=== PATIENT | female | born 1950 | race Caucasian/White ===

== ENCOUNTER → 2017-05-07 09:02 | Outpatient (CLI) | payer MEDICARE, OTHER, SELFPAY ==
[2017-05-07 10:30] LABS: Anion Gap 9 (5-15); BUN 15 mg/dL (7-18); BUN/Creat Ratio 25.3 RATIO (10-20); Calcium,Total 9.2 mg/dL (8.5-10.1); Chloride 103 mmol/L (98-107); Cholesterol 165 mg/dL (200); Creatinine, Serum 0.59 mg/dL (0.55-1.02); EST Glomerular Filtration Rate 108 mL/min (>60); Est Glom Filt Rate - Afr Amer 130 mL/min (>60); Glucose 92 mg/dL (70-110); High Density Lipoprotein 65 mg/dL; Potassium 3.8 mmol/L (3.5-5.1); Sodium Level 140 mmol/L (136-145); Triglycerides 110 mg/dL; Very Low Density Lipoprotein 22 mg/dL (5-40)
== END ==
PROVIDERS: Family Provider Family Medicine; PCP Family Medicine; Visit Provider Family Medicine
DX: I10 Essential (primary) hypertension (principal)
CPT/HCPCS: 36415; 80048; 80061

== ENCOUNTER 2017-05-20 07:58 | Day surgery (SDC) | payer MEDICARE, OTHER, SELFPAY ==
[2017-04-25 12:50] VITALS: BP 129/77; BMI 26.6
[2017-05-20 08:14] VITALS: BP 158/73; PULSE 70; RESP 16; TEMP 36.6; O2SAT 98; BMI 26.6
--- NOTE | 2017-05-20 09:51 | COLBX_PTH ---
PATIENT: QUINTON HERRING LOC: EN U#:[id number] AGE/SX: 66/F ROOM: RE05/20/[address]: Dr. Aroldo Elliott MD : 1950 BED: DIS: 05/20/2017 SPEC #: [id number] RECD: 05/20/17 11:12 STATUS: CHAPO SAYDA #: [id number] AMY: 05/20/17 09:[address]: Aroldo Elliott DEPT: SURGICAL PATHOLOGY RECD BY: Honorio Guillen ENTERED: 05/20/17 12:11 SP TYPE: COLON BX OTHR DR: Dr. Neal Regalado MD Tissues: Cecum, NOS Procedures: Surgery Specimen Level IV HEADER OPERATION: Colonoscopy with biopsy PRE-OP DIAGNOSIS: Small bowel obstruction / abnormal CT TISSUE SUBMITTED: Cecum biopsy MICROSCOPIC DIAGNOSIS Cecum, biopsy: No pathologic diagnosis. AM:isaac 05/23/17 MICROSCOPIC DESCRIPTION Slides are reviewed. GROSS DESCRIPTION Received in fixative is one container labeled with the patient's name and designated cecal biopsy. The specimen consists of one irregular fragment of light abdullahi soft tissue that measures 0.5 x 0.3 x 0.1 cm. The specimen is totally submitted in one cassette. / AM:isaac 05/20/17 TC:5 CPT: 06961
--- NOTE | 2017-05-20 10:04 | PCM.OPRPT ---
Problem List (1) Abnormal CT scan Status: Acute (2) Partial small bowel obstruction Status: Acute Report of Operation Date of Procedure: 05/20/17 Pre-Operative Diagnosis: History of partial small bowel obstruction. Abnormal CT scan possible inflammation distal small bowel Post-Operative Diagnosis: Scattered pancolonic diverticulosis Surgery/Procedure Performed:: Colonoscopy with cecal biopsy Description of Surgical Findings:: Amount and informed consent was obtained. 66-year-old female was taken to the endoscopy suite. She was placed in left lateral decubitus position. Throughout the procedure total 100 mg Demerol 3.5 mg of Versed were given as intravenous sedation. Digital rectal exam performed. Normal anal tone. No mass lesions. Flexible colonoscope inserted the rectum advanced with tortuous sigmoid colon. With transabdominal pressure the scope was advanced to the transverse colon and then was gradually advanced to the cecum. The cecum ileocecal valve area was nicely achieved. Multiple minutes were spent an attempt to cannulate the terminal ileum. Unfortunately I was not successful at that. A biopsy was obtained of the ileocecal valve area at the cecum. The cecum otherwise appeared to be normal. There did not appear to be any transmural mass-effect or inflammation. The scope was then carefully withdrawn from the ascending colon transverse colon descending colon and sigmoid colon. Scattered pancolonic diverticulosis was identified. Scope was retroflexed within the rectum. Anorectal verge inspected and little changes noted. Excess fluid and air was aspirated free. Procedure was completed with the patient tolerating it well. Impression Pancolonic diverticulosis. No evidence for colonic inflammation. Unsuccessful intubation of the ileocecal valve. Patient is clinically improved. Would recommend conservative follow-up based upon symptomatology Previous colonoscopy was greater than10 years ago. Colonoscopy recommended in 10 years Cc: Dr. Regalado Medications were given at 0938. Scope was inserted 0941. Cecum was reached at 0950. The procedure was completed at 0959. Aroldo Elliott M.D., F.A.C.S. Type of Anesthesia:: IV Sedation
[2017-05-20 10:05] VITALS: BP 108/43; BP 158/73; PULSE 77; RESP 16; TEMP 36.1; O2SAT 99
[2017-05-20 10:10] VITALS: BP 105/49; BP 158/73; PULSE 77; RESP 16; O2SAT 99
[2017-05-20 10:15] VITALS: BP 100/52; BP 158/73; PULSE 70; RESP 16; O2SAT 99
[2017-05-20 10:20] VITALS: BP 158/73; BP 99/45; PULSE 65; RESP 16; TEMP 36.1; O2SAT 98
[2017-05-20 11:00] VITALS: BP 158/73
== END 2017-05-20 11:01 | disposition home or self-care (01) ==
LOC: EN 07:58 → AC 07:59
PROVIDERS: Family Provider Family Medicine; PCP Family Medicine; Visit Provider Surgery
PROC: 0DJD8ZZ Inspection of Lower Intestinal Tract, Via Natural or Artificial Opening Endoscopic (ICD-10-PCS; CPT 45378; principal; 2017-05-20 09:10)
DX: K57.30 Diverticulosis of large intestine without perforation or abscess without bleeding (principal); R94.8 Abnormal results of function studies of other organs and systems
CPT/HCPCS: 45380; 88305; J7120

== ENCOUNTER → 2017-06-06 14:54 | Outpatient (CLI) | payer MEDICARE, OTHER, SELFPAY ==
--- NOTE | 2017-06-06 14:56 | HPBI_ITS ---
MAMMOGRAPHY - BILATERAL SCREENING REASON FOR EXAM: Female, 66 years old. Routine annual screening examination. PERTINENT HISTORY: Prior right excisional breast biopsy. TECHNIQUE: Digital bilateral breast elias (3D mammographic acquisition) in the CC and MLO projections. 2-D mediolateral oblique (MLO) and craniocaudad (CC) views of both breasts were obtained. CAD: Full Field Digital Mammography with Computer Added Detection was performed. COMPARISON: Comparison is made with prior study dated August 19, 2015. FINDINGS: Breast Composition: The breasts are heterogeneously dense, which may obscure small masses. There are no dominant masses or suspicious calcifications. No other significant abnormalities are identified. There has been no significant change since the prior study. HPBI/SCREENING MAMM (CAD), BILAT IMPRESSION: Stable bilateral screening mammogram. Yearly follow-up mammogram recommended. (A) ASSESSMENT CATEGORY: BIRADS Category 1: Negative. A letter regarding these results will be sent to the patient by the facility within 30 days. Approximately 10% of breast cancers are not detected by mammography. A normal mammogram should not delay biopsy of a clinically suspicious abnormality. [id number] Electronically Signed: Keyon Seth MD at 15:59 EST Tel [phone], Service support ,
== END ==
PROVIDERS: Family Provider Family Medicine; PCP Family Medicine; Visit Provider Family Medicine
DX: Z12.31 Encounter for screening mammogram for malignant neoplasm of breast (principal)
CPT/HCPCS: 77063; 77067

== ENCOUNTER → 2017-08-29 14:55 | Outpatient (CLI) | payer MEDICARE, OTHER, SELFPAY ==
[2017-09-02 03:08] LABS: Alternaria alternata <0.10 kU/L (Class 0); Aspergillus fumigatus <0.10 kU/L (Class 0); Bahia Grass <0.10 kU/L (Class 0); Bermuda Grass <0.10 kU/L (Class 0); Bluegrass, Kentucky <0.10 kU/L (Class 0); Cat Hair/Dander, Standard <0.10 kU/L (Class 0); Cedar, Mountain <0.10 kU/L (Class 0); Cladosporium herbarum <0.10 kU/L (Class 0); Cockroach, American <0.10 kU/L (Class 0); D farinae Mite <0.10 kU/L (Class 0); D pteronyssinus <0.10 kU/L (Class 0); Dog Epithelia <0.10 kU/L (Class 0); Elm, American White <0.10 kU/L (Class 0); Hazelnut Tree <0.10 kU/L (Class 0); Hickory, White <0.10 kU/L (Class 0); Johnson Grass <0.10 kU/L (Class 0); Maple/Box Elder <0.10 kU/L (Class 0); Mucor racemosus <0.10 kU/L (Class 0); Mugwort <0.10 kU/L (Class 0); Mulberry, White <0.10 kU/L (Class 0); Oak, White <0.10 kU/L (Class 0); Penicillium chrysogen <0.10 kU/L (Class 0); Pigweed, Rough <0.10 kU/L (Class 0); Plantain, English <0.10 kU/L (Class 0); Ragweed, Short/Common <0.10 kU/L (Class 0); Sheep Sorrel(Dock) <0.10 kU/L (Class 0); Stemphylium herbarum <0.10 kU/L (Class 0); Sweet Gum <0.10 kU/L (Class 0); Sycamore, American <0.10 kU/L (Class 0)
[2017-09-02 11:40] LABS: Nettle <0.10 kU/L (Class 0)
== END ==
PROVIDERS: Family Provider Family Medicine; PCP Family Medicine; Visit Provider Family Medicine
DX: Z91.09 Other allergy status, other than to drugs and biological substances (principal)
CPT/HCPCS: 36415; 86003

== ENCOUNTER → 2018-01-10 05:59 | Outpatient (CLI) | payer MEDICARE, OTHER, SELFPAY ==
[2018-01-10 07:26] LABS: Anion Gap 7 (5-15); BUN 16 mg/dL (7-18); BUN/Creat Ratio 24.8 RATIO (10-20); Calcium,Total 9.1 mg/dL (8.5-10.1); Chloride 105 mmol/L (98-107); Cholesterol 159 mg/dL (200); Creatinine, Serum 0.64 mg/dL (0.55-1.02); EST Glomerular Filtration Rate 97 mL/min (>60); Est Glom Filt Rate - Afr Amer 118 mL/min (>60); Glucose 92 mg/dL (74-106); High Density Lipoprotein 50 mg/dL; Potassium 3.8 mmol/L (3.5-5.1); Sodium Level 143 mmol/L (136-145); Thyroid Stim Hormone (TSH) 1.36 uIU/mL (0.358-3.74); Triglycerides 137 mg/dL; Very Low Density Lipoprotein 27 mg/dL (5-40)
== END ==
PROVIDERS: Family Provider Family Medicine; PCP Family Medicine; Referring Provider Family Medicine; Visit Provider Family Medicine
DX: I10 Essential (primary) hypertension (principal); R53.83 Other fatigue
CPT/HCPCS: 36415; 80048; 80061; 84443

== ENCOUNTER → 2018-07-10 06:23 | Outpatient (CLI) | payer MEDICARE, OTHER, SELFPAY ==
--- NOTE | 2018-07-10 10:14 | STRESSREP ---
Stress Test Report Exercise myocardial perfusion stress test. 67-year-old lady with a history of chest pain. Medications: Propranolol. Stress protocol: Resting EKG demonstrates normal sinus rhythm with a rate of 65 bpm normal intervals are noted resting blood pressure 128/74 mmHg. The patient exercised according to regular Killian protocol for total duration of 6 minutes the patient completed stage II of the Killian protocol the maximum heart rate attained was 142 bpm which was 92% of maximum predicted heart rate the maximum workload was 7 metabolic equivalents. At rest there were no ST or T wave changes noted suggest ischemia peak exercise upsloping ST changes only were noted with no meet the criteria for ischemia. Resting blood pressure 120/74 with a peak blood pressure 188/72 rate pressure product was 26,500. Patient felt occasional chest discomfort. Myocardial perfusion protocol. 11.6 mCi of technetium 99m sestamibi was injected at rest. The patient exercised according to regular Killian protocol for 6 minutes at peak exercise 33.1 mCi of technetium 99m sestamibi was injected stress images were obtained stress and rest images were reconstructed and compared in the short axis vertical long horizontal long axis. Gated images were also obtained per Perfusion SPECT analysis: Review of the stress images demonstrate normal uptake of tracer noted in all areas of the myocardium. The resting images similarly demonstrate normal uptake of tracer noted in all areas of myocardium. No reversibility is noted suggest ischemia. Gated SPECT analysis: The gated ejection fraction is noted to be 82%. Conclusion: Normal exercise myocardial perfusion stress test at a moderate workload. Preserved ejection fraction.
== END ==
PROVIDERS: Family Provider Family Medicine; PCP Family Medicine; Referring Provider Family Medicine; Visit Provider Family Medicine
DX: R07.9 Chest pain, unspecified (principal)
CPT/HCPCS: 78452; 93017; A9500; A4216

== ENCOUNTER → 2018-07-17 | Outpatient (CLI) | payer MEDICARE, OTHER, SELFPAY ==
--- NOTE | 2018-07-17 14:53 | BI_ITS ---
MAMMOGRAPHY - BILATERAL SCREENING REASON FOR EXAM: Female, 67 years old. Routine annual screening examination. PERTINENT HISTORY: Non-contributory. TECHNIQUE: Digital bilateral breast elias (3D mammographic acquisition) in the CC and MLO projections. 2-D mediolateral oblique (MLO) and craniocaudad (CC) views of both breasts were obtained. CAD: Full Field Digital Mammography with Computer Added Detection was performed. COMPARISON: Comparison is made with prior examination dated June 06, 2017 and August 19, 2015. FINDINGS: Breast Composition: The breasts are heterogeneously dense, which may obscure small masses. There are no dominant masses or suspicious calcifications. No other significant abnormalities are identified. There has been no significant change since the prior study. BI/SCREENING MAMM (CAD), BILAT IMPRESSION: Stable bilateral screening mammogram. Yearly follow-up mammogram recommended. (A) ASSESSMENT CATEGORY: BIRADS Category 1: Negative. A letter regarding these results will be sent to the patient by the facility within 30 days. Approximately 10% of breast cancers are not detected by mammography. A normal mammogram should not delay biopsy of a clinically suspicious abnormality. [id number] Electronically Signed: Keyon Seth, at 16:01 EDT , Service support ,
== END | disposition home or self-care (01) ==
LOC: OPBI 14:51
PROVIDERS: Family Provider Family Medicine; PCP Family Medicine; Referring Provider Family Medicine; Visit Provider Family Medicine
DX: Z12.31 Encounter for screening mammogram for malignant neoplasm of breast (principal)
CPT/HCPCS: 77063; 77067

== ENCOUNTER → 2018-08-16 14:14 | Outpatient (CLI) | payer MEDICARE, OTHER, SELFPAY ==
--- NOTE | 2018-08-16 14:23 | RAD_ITS ---
STUDY: X-RAY - RIGHT KNEE REASON FOR EXAM: Female, 68 years old. Anterior right knee pain for 2 weeks TECHNIQUE: 4 view(s) of the knee. COMPARISON: None. FINDINGS: Normal visualized distal femur. Normal visualized proximal tibia and fibula. Normal proximal tibiofibular articulation. Normal medial femorotibial compartment. Normal lateral femorotibial compartment. Normal patellofemoral articulation. Serpiginous structures of the superficial leg soft tissues likely represent varicose veins. RAD/Knee 4 or More Views IMPRESSION: No significant degenerative changes or erosive process. Suspect varicose veins. Electronically Signed: Aguila Roper MD at 13:32 EDT , Service support ,
== END ==
PROVIDERS: Family Provider Family Medicine; PCP Family Medicine; Referring Provider Family Medicine; Visit Provider Family Medicine
DX: M25.569 Pain in unspecified knee (principal)
CPT/HCPCS: 73564

== ENCOUNTER 2018-09-26 14:30 | Outpatient (RCR) | payer MEDICARE, OTHER, SELFPAY ==
--- NOTE | 2018-08-23 16:25 | HP.PTEVAL_ITS ---
Patient's Visit Information QUINTON HERRING is a 68 year old F referred to Physical Therapy by Neal Regalado MD with a diagnosis of RIGHT KNEE PAIN. Date of Evaluation: 08/23/18 Physical Therapist: Shiv Sheth PT, Cert MDT, OCS - Visit Plan Frequency: 2x /Week Duration: 4 Weeks Plan: INTERVENTIONS INCLUDE ROM,PRE'S QUADS/HAMS/HIP, - Subjective Findings: This 68 y/o female presents to physical therapy with right knee pain. Patient pain incidous onset of right knee pain. Otherwise ,recalls being on hands/knees working on floor. Patient pain medial knee described as ache/sharp pain. Aggraveting factors squatting,kneeling ,stairs,walking,sitting for extended period of time to elevate from chair. Denies parathesia/tingling.Patient had x-rays -,provided with naproxyn.Pain can affects sleeping especially turning in bed. Patient pain affects ADL's and housework tasks. Pateint right pain affects QOL. SOCAIL: . VOCATION: part-time - Pain Right Knee Pain Intensity (Out of 10): 2 Pain Intensity Range: 10 - Objective POSTURE:mild knee valgus. PALAPTION:medial joint line tenderness. EDEMA: mild effusion. GAIT: antalgic gait with decrease stance right. STAIRS: one step at time. AROM: 0-115 supine degrees knee flexion. MMT: quads/hams 4-/5,hip flexion/abd 4-/5,ankle 4/5. FLEXABLITY: hams min tight - Special Tests R Knee Theo - Meniscus: Positive R Knee Apley - Meniscus: Negative R Knee Krista - ACL: Negative R Knee Anterior Drawer - ACL: Negative R Knee Posterior Drawer - PCL: Negative R Knee Posterior Sag - PCL: Negative R Knee Valgus - MCL: Negative R Knee Varus - LCL: Negative R Knee Patellar Grind - PFS: Negative - Goals Goal 1:: Independant with HEP . Goal Time Frame: 4-6 Weeks Goal 2:: Normalize gait pattern Goal Time Frame: 4-6 Weeks Goal 3:: Decrease pain by 60% or greater to improve function with gait. Goal Time Frame: 4-6 Weeks Goal 4:: Patient increase AROM knee flexion symmtrical right to left to improve gait. Goal Time Frame: 4-6 Weeks Goal 5:: Patient increase strength quads/hams 4/5 to improve stairs Goal Time Frame: 4-6 Weeks Goal 6:: Patient to improve LFES score by 10 points or greater to improve QOL. Goal Time Frame: 4-6 Weeks - Rehabilitation Potential Physical Therapy Diagnosis: This patient has right knee pain with possible meniscus decrease ROM,strength,antalgic gait impairs ADL'S thus benifit from skilled PT. Rehabilitation Potential: Good - Anticipated Interventions Patient/Client Instruction: Educate patient on: Condition, Plan of Care For the Purpose of:: To decrease pain, To increase ROM, To improve muscle performance and motor function, To improve ability to perform ADL's, To improve ability of physical actions for home/community/work/leisure, To improve gait and locomotor functions, To improve health of tissue, To decrease soft tissue restriction, To increase flexibility/ROM, To reduce risk of recurrence, To improve ability to perform tasks related to life management Therapeutic Exercise to Include: Strength training, Flexibilty training, Active ROM Comment: KNEE/HIP For the Purpose of:: To decrease pain, To increase ROM, To improve muscle performance and motor function, To improve ability to perform ADL's, To increase tolerance to activity/condition/position, To improve performance and independence with ADL's, To improve ability of physical actions for home /community/work/leisure, To decrease soft tissue restriction, To increase flexibility/ROM, To improve ability to perform tasks related to life management TENS: Yes IF ES: Yes Cryotherapy (ice pack, ice massage): Yes Thermo therapy (hot pack): Yes Ultrasound (thermal/non thermal): Yes For the Purpose of:: To decrease pain, To increase ROM, To improve health of tissue, To decrease soft tissue restriction, To increase flexibility/ROM Thank you for the opportunity to evaluate your patient. For Medicare and Medicare HMO plans, please review the plan of care and approve it. It will need to be FAXED BACK to us at [phone] for Medicare purposes. For Medicare only, by signing this I certify the plan of care. Please let me know if there are questions or concerns regarding this plan of care. Physician Signature: Date:
--- NOTE | 2018-09-26 14:52 | HP.PTDCSUM ---
HP - PT D/C Summary It has been my pleasure to treat QUINTON HERRING under orders from Neal Regalado MD, for the diagnosis of RIGHT KNEE PAIN for a total of 9 visit(s). Discharge Date: 09/26/18 Please see the following information for a summary of their discharge status. - Subjective Subjective: Doing well ..no problems - Pain Right Knee Pain Intensity (Out of 10): 0 - Overall Improvement % Improvement: 85 - Objective Objective/Function: GAIT:normal julia. NEURO: intact. AROM: 0-135 degress flexion. MMT: quads/hams/hip 4/5 ,ankle 4/5 - Goals Goal 1:: Independant with HEP . Goal Progress: Goal Met Goal 2:: Normalize gait pattern Goal Progress: Goal Met Goal 3:: Decrease pain by 60% or greater to improve function with gait. Goal Progress: Goal Met Goal 4:: Patient increase AROM knee flexion symmtrical right to left to improve gait. Goal Progress: Goal Met Goal 5:: Patient increase strength quads/hams 4/5 to improve stairs Goal Progress: Goal Met Goal 6:: Patient to improve LFES score by 10 points or greater to improve QOL. Goal Progress: Goal Met - Plan Plan: D/C TO HEP - D/C Information Discharge Comments: D/C TO HEP If there are questions or concerns regarding this patient's physical therapy, please feel free to call me at [phone]. Thank you for the referral of this patient. Sincerely, Shiv Sheth, PT, Cert MDT, OCS
== END 2018-09-26 19:00 | disposition home or self-care (01) ==
LOC: PT 14:30
PROVIDERS: Family Provider Family Medicine; PCP Family Medicine; Referring Provider Family Medicine; Visit Provider Family Medicine
DX: M25.569 Pain in unspecified knee (principal)
CPT/HCPCS: 97014; 97110; 97162; 97530; G0283

== ENCOUNTER → 2019-04-17 16:54 | Outpatient (CLI) | payer MEDICARE, OTHER, SELFPAY ==
--- NOTE | 2019-04-17 17:30 | MRI_ITS ---
STUDY: MRI RIGHT KNEE REASON FOR EXAM: Female, 68 years old. Right knee pain. Arthritis. TECHNIQUE: Standardized fat and water weighted pulse sequences were obtained in all 3 orthogonal planes. COMPARISON: X-ray dated August 16, 2018. FINDINGS: Grade 3 cartilage loss at the patellofemoral articulation with small 5 cm osteochondral lesions. Medial compartment grade 2/3 cartilage loss. Lateral compartment articular cartilage preserved. No acute fracture. No dislocation. No bone destruction. Lateral meniscus intact. Medial meniscus posterior horn oblique tear (sagittal image 6 series 5 and sagittal image 9 series 4) with posterior horn degeneration. Small volume joint effusion. No popliteal cyst. Mild swelling. Varicose veins. Normal medial collateral ligamentous complex (MCL). Normal distal semimembranosus, gracilis and semitendinosus tendons. Normal proximal tibiofibular articulation. Normal lateral collateral (fibular) ligament. Normal popliteus tendon. Normal biceps femoris tendon. Normal anterior cruciate ligament (ACL). Normal posterior cruciate ligament (PCL). Normal medial and lateral patellar retinaculum. Tiny quadriceps tendon enthesophyte. Normal patellar tendon. Normal Hoffa''s fat pad. MRI/Lower Ext Joint Only (Routine) IMPRESSION: Medial meniscus posterior horn degeneration with oblique tear Right knee moderate osteoarthritis Small volume joint effusion and mild swelling Electronically Signed: Billy Mccracken DO at 8:28 EST Tel , Service support ,
== END ==
PROVIDERS: Family Provider Family Medicine; PCP Family Medicine; Referring Provider Family Medicine; Visit Provider Family Medicine
DX: M25.561 Pain in right knee (principal)
CPT/HCPCS: 73721

== ENCOUNTER 2019-05-01 07:55 | Day surgery (SDC) | payer MEDICARE, OTHER, SELFPAY ==
[2019-04-25 09:49] VITALS: BMI 28.5
[2019-05-01] VITALS (7 sets, daily range): BP systolic 126–140; BP diastolic 57–72; PULSE 57–71; RESP 14–16; TEMP 36.3–36.6; O2SAT 92–99; BMI 28.8
[2019-05-01] MEDS: Lactated Ringers 1,000 ML 100 ML IV ×2 (08:51→10:34)
[2019-05-01] MEDS: Cefazolin 2 GM in 0.9% Normal Saline 100 ML IV (09:25)
[2019-05-01] MEDS: Bupiv/Epi 0.5% Mpf 30 ML Vial (09:51)
[2019-05-01] MEDS: Epinephrine (1 mg/ml) 1 MG/ML VIAL (09:51)
[2019-05-01] MEDS: MethylPREDNISolone Acetate 80 MG/ML Vial (10:05)
[2019-05-01] MEDS: Bupivacaine Mpf 0.5% 30 ML VIAL (10:05)
--- NOTE | 2019-05-01 10:13 | PCM.DC.ORTHO ---
Discharge Diet: No Restrictions Additional Instructions: Ice and elevate next 72 hours .keep dressing on clean and dry for 48 hours then may remove begin showering daily but do not submerge in tub or pool. After shower may apply Band-Aids . Encourage knee range of motion weightbearing as tolerated, use crutches until confident in knee then may discontinue. No strenuous activity. When not ambulating keep iced and elevated next 72 hours. Allergies/Adverse Reactions: Allergies menthol [From [facility]] Adverse Reaction (Verified 05/01/19 08:33) Rash Medications to take at Discharge Cholecalciferol (Vitamin D3) [Vitamin D3] 5,000 unit PO DAILY 04/10/17 Propranolol HCl 40 mg PO DAILY 04/10/17 Acetaminophen [Tylenol Extra Strength] 500 - 1,000 mg PO Q6H PRN PRN 04/30/19 Albuterol IH (ProAir) [Proair Hfa (SP)Vent Pts] 1 - 2 puff INHALATION Q6H PRN PRN 04/30/19 Hydrocodone Bitart/Apap 5-325 [[place] 5MG-325MG] 1 - 2 tablet PO Q4H PRN PRN 5 Days #50 tablet 05/01/19 The following prescriptions were given: Hydrocodone Bitart/Apap 5-325 [[place] 5MG-325MG] 1 - 2 tablet PO Q4H PRN PRN 5 Days #50 tablet PRN Reason: Pain Transmission Status: Received by [id number] Primary Care Physician: Neal Regalado MD [Primary Care Provider] - Test Results: Test results from this visit will be discussed in further detail at your follow-up appointment, if applicable. Please Follow Up With: Kalpesh Mckeon DO - 2 weeks
--- NOTE | 2019-05-01 10:15 | OP.PCM_ITS ---
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 Risk benefits and alternatives of the procedure were reviewed including risk of bleeding infection nerve artery tissue damage need for further surgery continued pain and expected postoperative course. Procedure: The patient was met in the preoperative holding area. The operative extremity was identified by both patient and physician and family and marked. Patient was brought back to the operating room on a wheeled cart and transferred to the operating table in the supine position. Anesthesia was started. A well- padded tourniquet was placed on the operative extremity. A lower extremity leg alvarenga was secured to the operative extremity. The contralateral extremity was well-padded and the end of the bed was flexed to 90 degrees. The patient was prepped and draped in the usual sterile fashion. A timeout was called to ensure the proper patient, procedure, and extremity were being contemplated. 0.5% Marcaine with epinephrine was injected into the planned incisional areas under the skin only. An Esmarch was used to exsanguinate the extremity and the tourniquet was inflated. An 11 blade scalpel was used to make a stab incision in the anterior lateral portal. The arthroscope was inserted into the intercondylar notch and inflow and outflow tubes were attached. Arthroscopic visualization began. The medial compartment was entered. An 18-gauge spinal needle was used to establish the placement for anterior medial portal. An 11 blade scalpel was used to make a stab incision. Blunt probe was inserted followed by a meniscal probe. Complex tearing of posterior horn medial meniscus with radial and horizontal components grade III chondromalacia throughout the medial femoral condyle gentle chondroplasty and partial medial meniscectomy was performed in this compartment the ACL was found to be intact. The lateral compartment was entered free of meniscal or cartilage pathology The ar thromnope was switched to the medial portal to complete the procedure. The medial and lateral gutters were inspected and were free of loose bodies. The patellofemoral joint was inspected grade 3 cartilage wear with areas of grade 4 of the trochlea and grade 3 medial and lateral patellar facet enteroplasty performed. There was good patellar tracking. The knee was thoroughly irrigated and drained. An intra-articular injection with 5 cc 0.5% Marcaine plain 4 mg of morphine and 40 mg of Depo-Medrol was injected intra-articularly. The arthroscope was removed the portals were closed with 3-0 nylon arthroscopic stitches. Followed by Xeroform 4 x 4's ABDs web roll and an Juan wrap. The tourniquet was let down and the drapes were removed. All counts were correct. The patient was brought back to the PACU in stable condition.
[2019-05-01] MEDS: HYDROcodone Bitartrate/Apap 5/325 Tablet PO (11:35)
--- NOTE | 2019-05-18 10:09 | PCM.HP.BLA ---
History and Physical Date of Admission: 05/18/19 Intake Vital Signs 04/25/19 Height 5 ft 6 in 04/25/19 Weight: 177 lb 04/25/19 BMI 26.6 Intake Visit Reasons: right knee Is patient in pain?: Yes Pain scale (1-10): 8 Allergies menthol [From [facility]] Adverse Reaction (Verified 04/25/19 09:48) Rash Medications Aspirin [Aspirin, Baby] 81 mg PO DAILY 04/10/17 [History Confirmed 04/25/17] Cholecalciferol (Vitamin D3) [Vitamin D3] 5,000 unit PO DAILY 04/10/17 [History Confirmed 04/25/19] Propranolol HCl 40 mg PO DAILY 04/10/17 [History Confirmed 04/25/19] Vitamin E 400 unit PO DAILY 04/10/17 [History Confirmed 04/25/17] tramadol 50 mg tablet 50 mg PO DAILY 04/25/19 [History Confirmed 04/25/19] [facility] Surgical History (Updated 05/20/17 @ 10:08 by Aroldo Elliott MD) H/O section (Acute) H/O melanoma excision (Acute) S/P breast lumpectomy (Acute) Social History (Updated 04/25/19 @ 10:28 by Kalpesh Mckeon DO) Smoking Status: Never smoker HPI right knee: Details: Parts of this documentation were recorded by a scribe, this documentation accurately reflects the service provided and the decisions made by me, Kalpesh Mckeon DO 04/25/19 0756. QUINTON HERRING is a 68 year old F here today referred by Dr Pennington for right knee pain. She states that she had had right knee pain since July but got worse just after . Patient denies any known injury but states that she was taking down decorations and got worsening pain. She complains of pain over her medial knee. Patient denies any popping or clicking, however she feels like it could if she moved a certain way so she prevents that from happening. She complains of knee swelling. Patient denies any knee instability. She ambulates slowly and carefully on stairs as she has increased pain with knee flexion. Patient completed physical therapy which was helpful at that time but then her knee pain worsened. She has decreased pain with sitting in her recliner. Patient notes that she has pain at night while sleeping. Patient denies any injections. She denies any knee brace. Patient had xrays and MRI which are here for review. She takes tramadol and naproxen which is not helpful. ROS Musc Reports joint pain, Reports joint swelling, Denies limited joint movement, Denies muscle weakness Skin/Breast Reports system reviewed and no additional complaints, except as docu Neuro Yes system reviewed and no additional complaints, except as docu Ortho Exam Right Knee Skin/Wound: Yes CDI, No erythema, No ecchymosis, Yes swelling Homans Sign: No 1+: Effusion (faint) Knee ROM: Yes ROM-Extension -20 to 0, Yes ROM-Flexion 0-140 (115) Examination: Yes Med jt line tenderness, No Lat jt line tenderness, Yes Theo's Test (with click), Yes Zazueta's (with crepitus and pain), Yes TTP Pes Anserine Stability: NML: Anterior Drawer, NML: Posterior Drawer, NML: Valgus 30, NML: Varus 30 Patella Translation: 1 Apprehension with Lateral Translation: No Patella Grind: No Left Knee Patella Translation: 1 Supplemental Info 04/17/2019 MRI right knee: Medial meniscus posterior horn degeneration with oblique tear,Right knee moderate osteoarthritis, Small volume joint effusion and mild swelling Assessment & Plan Problems 1. Peripheral tear of medial meniscus of right knee as current injury, initial encounter S83.221A 2. Primary osteoarthritis of right knee M17.11 Plan Spoke with the patient about the anatomy of the knee and etiology of her pain. Explained that she would be a candidate for a knee arthroscopy to help with medial meniscus tear. The arthroscopy will not be helpful with her cartilage wear particularly patellofemoral and medial compartment. She agreed to surgery. She should stop aleve and ibuprofen 7 days prior to surgery. Reviewed the pre-operative plans with the patient. Risks and benefits of the procedure were fully explained, including but not limited to infection, neurovascular injury, continued pain, arthritis, stiffness, need for further surgery, re-injury, DVT, PE, general risks of anesthesia, and loss of limb or life. The patient understands all the risks and does wish to proceed with written consent. Follow up in 2 weeks after surgery(06/01/2019) or sooner if pain, swelling, numbness or associated symptoms, or concerns develop. All questions answered. Patient in agreement of plan. Will forward a copy to Dr. Regalado. Thank for this consultation. Coding Level of Care Code 22614 Diagnoses Peripheral tear of medial meniscus of right knee as current injury, initial encounter S83.221A ??Tear current or old: current ??Encounter type: initial encounter ??Meniscus tear of knee type: peripheral Primary osteoarthritis of right knee M17.11 ??Osteoarthritis type: primary I have re-examined the patient. There are no clinical changes since date of exam
== END 2019-05-01 12:08 | disposition home or self-care (01) ==
LOC: SDC 07:57 → AC 07:58
PROVIDERS: Family Provider Family Medicine; PCP Family Medicine; Referring Provider Orthopaedic Surgery; Visit Provider Orthopaedic Surgery
PROC: (CPT 29870; principal; 2019-05-01 09:30)
DX: S83.231A Complex tear of medial meniscus, current injury, right knee, initial encounter (principal); X58.XXXA Exposure to other specified factors, initial encounter; Y93.9 Activity, unspecified; Y92.9 Unspecified place or not applicable; Y99.9 Unspecified external cause status; M17.11 Unilateral primary osteoarthritis, right knee; Z79.82 Long term (current) use of aspirin
CPT/HCPCS: 01400; 29882; J7120; J2405

== ENCOUNTER → 2019-05-21 08:56 | Outpatient (CLI) | payer MEDICARE, OTHER, SELFPAY ==
[2019-05-21 08:56] VITALS: BMI 28.8
--- NOTE | 2019-05-21 08:57 | RAD_ITS ---
STUDY: X-RAY - RIGHT HAND, ATTENTION first digit REASON FOR EXAM: Female, 68 years old. RIGHT THUMB HAS BEEN LOCKING UP CAUSING PAIN TECHNIQUE: 3 views thumb were obtained. COMPARISON: None. FINDINGS: Normal metacarpal head. Normal metacarpophalangeal joint. Normal proximal phalanx. Normal distal phalanx. There is moderate degenerative arthrosis of the interphalangeal joint. RAD/Finger(s) Min 2 Views IMPRESSION: Moderate osteoarthrosis of the interphalangeal joint. No destructive or erosive process. Electronically Signed: Aguila Roper MD (Brooks) at 13:25 EST , Service support ,
== END ==
PROVIDERS: PCP Family Medicine; Visit Provider Orthopaedic Surgery
DX: M79.644 Pain in right finger(s) (principal)
CPT/HCPCS: 73140

== ENCOUNTER → 2019-08-06 10:09 | Outpatient (CLI) | payer MEDICARE, OTHER, SELFPAY ==
[2019-05-21 08:56] VITALS: BMI 28.8
--- NOTE | 2019-08-06 10:13 | RAD_ITS ---
STUDY: X-RAY - UNILATERAL RIBS ( LEFT ) WITH CHEST REASON FOR EXAM: Female, 69 years old. PT FELL ONTO A ROCKING SARTHAK, PAIN AND BRUISE UPPER AXILLARY AREA, UNDER ARMPIT TECHNIQUE - RIBS: 4 view(s) of the ribs. TECHNIQUE - CHEST: COMPARISON: None. FINDINGS - RIBS: Normal visualized ribs without a demonstrated fracture. FINDINGS - CHEST: The lungs are clear and expanded. Scattered calcified granulomas. There is no demonstrated pleural abnormality. Normal size heart. Normal mediastinum and jenni. Normal visualized pulmonary arteries. Normal visualized aortic arch and descending thoracic aorta. There is a dextroscoliosis of the thoracic spine. Normal visualized ribs, clavicles, and shoulders. There is no demonstrated abnormality of the visualized soft tissue structures of the upper abdomen. RAD/Ribs Uni Min 3V w/PA Chest IMPRESSION: RIBS: Normal x-ray examination of the ribs. CHEST: Normal x-ray examination of the chest. Electronically Signed: Keyon Seth, at 10:42 EDT , Service support ,
== END ==
LOC: MTLAB 10:12 → MTRAD 10:12
PROVIDERS: PCP Family Medicine; Referring Provider Family Medicine; Visit Provider Family Medicine
DX: R07.81 Pleurodynia (principal)
CPT/HCPCS: 71101

== ENCOUNTER → 2019-09-12 07:56 | Outpatient (CLI) | payer MEDICARE, OTHER, SELFPAY ==
[2019-05-21 08:56] VITALS: BMI 28.8
--- NOTE | 2019-09-12 07:59 | BI_ITS ---
MAMMOGRAPHY - BILATERAL SCREENING REASON FOR EXAM: Female, 69 years old. Routine annual screening examination. PERTINENT HISTORY: Non-contributory. TECHNIQUE: Digital bilateral breast arash (3D mammographic acquisition) in the CC and MLO projections. 2-D mediolateral oblique (MLO) and craniocaudad (CC) views of both breasts were obtained. CAD: Full Field Digital Mammography with Computer Added Detection was performed. COMPARISON: Comparison is made with prior examination dated July 17, 2018 and June 06, 2017. FINDINGS: Breast Composition: The breasts are heterogeneously dense, which may obscure small masses. There are no dominant masses or suspicious calcifications. No other significant abnormalities are identified. There has been no significant change since the prior study. BI/SCREEN MAMM (CAD) W/ARASH BILAT IMPRESSION: Stable bilateral screening mammogram. Yearly follow-up mammogram recommended. (A) ASSESSMENT CATEGORY: BIRADS Category 1: Negative. A letter regarding these results will be sent to the patient by the facility within 30 days. Approximately 10% of breast cancers are not detected by mammography. A normal mammogram should not delay biopsy of a clinically suspicious abnormality. [id number] Electronically Signed: Keyon Seth, at 9:40 EDT , Service support ,
[2019-09-12 08:56] LABS: Cholesterol 166 mg/dL (200); High Density Lipoprotein 59 mg/dL; Triglycerides 128 mg/dL; Very Low Density Lipoprotein 26 mg/dL (5-40)
== END ==
PROVIDERS: PCP Family Medicine; Referring Provider Nurse Practitioner Family; Visit Provider Nurse Practitioner Family
DX: Z12.31 Encounter for screening mammogram for malignant neoplasm of breast (principal); E78.5 Hyperlipidemia, unspecified
CPT/HCPCS: 36415; 77063; 77067; 80061

== ENCOUNTER → 2020-10-24 08:14 | Outpatient (CLI) | payer MEDICARE, OTHER, SELFPAY ==
[2019-12-24 08:20] VITALS: BMI 28.8
--- NOTE | 2020-10-24 08:29 | BI_ITS ---
MAMMOGRAPHY - BILATERAL SCREENING REASON FOR EXAM: Female, 70 years old. Routine annual screening examination. PERTINENT HISTORY: Non-contributory. TECHNIQUE: Digital bilateral breast arash (3D mammographic acquisition) in the CC and MLO projections. 2-D mediolateral oblique (MLO) and craniocaudad (CC) views of both breasts were obtained. CAD: Full Field Digital Mammography with Computer Added Detection was performed. COMPARISON: Comparison is made with prior study dated 09/12/2019 and 07/17/2018. FINDINGS: Breast Composition: The breasts are heterogeneously dense, which may obscure small masses. There are no dominant masses or suspicious calcifications. No other significant abnormalities are identified. There has been no significant change since the prior study. BI/SCRN MAMM (CAD)W/ARASH BILAT IMPRESSION: Stable bilateral screening mammogram. Yearly follow-up mammogram recommended. (A) ASSESSMENT CATEGORY: BIRADS Category 1: Negative. A letter regarding these results will be sent to the patient by the facility within 30 days. Approximately 10% of breast cancers are not detected by mammography. A normal mammogram should not delay biopsy of a clinically suspicious abnormality. [id number] Electronically Signed: Keyon Seth MD at 10:07 EDT , Service support ,
== END ==
PROVIDERS: PCP Family Medicine; Referring Provider Family Medicine; Visit Provider Family Medicine
DX: Z12.31 Encounter for screening mammogram for malignant neoplasm of breast (principal)
CPT/HCPCS: 77063; 77067

== ENCOUNTER → 2020-12-01 08:49 | Outpatient (CLI) | payer MEDICARE, OTHER, SELFPAY ==
[2020-12-01 10:45] LABS: Anion Gap 2 (5-15); BUN 20 mg/dL (7-18); BUN/Creat Ratio 34.2 RATIO (10-20); Calcium,Total 9.3 mg/dL (8.5-10.1); Chloride 107 mmol/L (98-107); Creatinine, Serum 0.58 mg/dL (0.55-1.02); EST Glomerular Filtration Rate 108 mL/min (>60); Est Glom Filt Rate - Afr Amer 131 mL/min (>60); Glucose 87 mg/dL (74-106); Potassium 4.1 mmol/L (3.5-5.1); Sodium Level 140 mmol/L (136-145)
== END ==
PROVIDERS: PCP Family Medicine; Referring Provider Nurse Practitioner Family; Visit Provider Nurse Practitioner Family
DX: Z13.220 Encounter for screening for lipoid disorders (principal)
CPT/HCPCS: 36415; 80048

== ENCOUNTER → 2021-10-16 | Outpatient (CLI) | payer MEDICARE, OTHER, SELFPAY ==
--- NOTE | 2021-10-16 09:13 | RAD_ITS ---
STUDY: X-RAY - RIGHT HAND REASON FOR EXAM: Female, 71 years old. Pain at the level of the third metacarpal phalangeal joint. TECHNIQUE: 3 view(s) of the hand. COMPARISON: None. FINDINGS: Normal radiocarpal articulation. Normal distal radioulnar joint. Normal visualized carpal bones. Normal carpal articulations Normal carpometacarpal articulation of the thumb. Normal second through fifth carpometacarpal joints. Normal metacarpi. Normal metacarpophalangeal joint of the thumb. Normal interphalangeal joint of the thumb. Normal proximal and distal phalanges of the thumb. Normal metacarpophalangeal joints of the second through fifth fingers. Normal proximal and distal interphalangeal joints of the second through fifth fingers. Normal phalanges of the second through fifth fingers. The soft tissue structures are unremarkable. RAD/Hand Min 3 Views IMPRESSION: Normal x-ray examination of the hand. Electronically Signed: Keyon Seth MD at 9:29 EDT ,
[2021-10-16 10:25] LABS: BUN 20 mg/dL (7-18); Creatinine, Serum 0.64 mg/dL (0.55-1.02); Glucose 87 mg/dL (74-106)
[2021-10-16 10:26] LABS: Anion Gap 4 (5-15); BUN/Creat Ratio 31.1 RATIO (10-20); Calcium,Total 9.5 mg/dL (8.5-10.1); Chloride 106 mmol/L (98-107); Cholesterol 179 mg/dL (200); EST Glomerular Filtration Rate 97 mL/min (>60); Est Glom Filt Rate - Afr Amer 117 mL/min (>60); High Density Lipoprotein 54 mg/dL; Potassium 4.1 mmol/L (3.5-5.1); Sodium Level 140 mmol/L (136-145); Triglycerides 144 mg/dL; Very Low Density Lipoprotein 29 mg/dL (5-40)
== END | disposition home or self-care (01) ==
LOC: MTLAB 09:02
PROVIDERS: PCP Family Medicine; Referring Provider Family Medicine; Visit Provider Family Medicine
DX: M79.643 Pain in unspecified hand (principal); I10 Essential (primary) hypertension
CPT/HCPCS: 36415; 73130; 80048; 80061

== ENCOUNTER → 2021-10-22 | Outpatient (CLI) | payer MEDICARE, OTHER, SELFPAY ==
--- NOTE | 2021-10-22 12:58 | CDU_ITS ---
Reason For Study: Amaurosis fugax Rt. Velocities/BP Lt. Velocities/BP Prox CCA 74.7/13.4 cm/sec. Prox CCA 82.7/13.3 cm/sec. Mid CCA 72.1/13.4 cm/sec. Mid CCA 72.8/13.9 cm/sec. Dist CCA 72.1/13.4 cm/sec. Dist CCA 70.4/15.1 cm/sec. Prox ICA 54.2/11.3 cm/sec. Prox ICA 90/15.1 cm/sec. Mid ICA 73.9/22.3 cm/sec. Mid ICA 97.4/27.4 cm/sec. Dist ICA 79.5/20.1 cm/sec. Dist ICA 62.4/18.3 cm/sec. Rt. ICA/CCA = 1.10. Lt. ICA/CCA = 1.34. Prox ECA 76/4.3 cm/sec. Prox ECA 55.1/7.8 cm/sec. Rt. Vert. 45.4/9.1 cm/sec. Lt. Vert. 42.8/6 cm/sec. Right Extracranial There is homogeneous, smooth atherosclerotic plaque noted in the right common carotid artery. There is heterogeneous, irregular atherosclerotic plaque noted in the right internal carotid artery. There is heterogeneous, smooth atherosclerotic plaque noted in the right external carotid artery. Antegrade flow is noted in the right vertebral artery. Left Extracranial There is homogeneous, smooth atherosclerotic plaque noted in the left common carotid artery. There is heterogeneous, smooth atherosclerotic plaque noted in the left internal carotid artery. There is intimal thickening but no significant atherosclerotic plaque noted in the left external carotid artery. Antegrade flow is noted in the left vertebral artery. Procedure Carotid Duplex 45113. This is a Carotid Duplex examination using B-mode, color flow and specral Doppler. Exam performed in department. VL/Carotid Duplex Ultrasound Interpretation Summary Mild (<50%) stenosis right extracranial internal carotid. Mild (<50%) stenosis left extracranial internal carotid. Patent and antegrade vertebrals bilaterally. Ordering Physician: Han Morris Referring Physician: Neal Regalado Performed By: Esperanza Barahona RVT
== END | disposition home or self-care (01) ==
LOC: CVS 12:55
PROVIDERS: PCP Family Medicine; Referring Provider Ophthalmology; Visit Provider Ophthalmology
DX: G45.3 Amaurosis fugax (principal); H53.10 Unspecified subjective visual disturbances
CPT/HCPCS: 93880

== ENCOUNTER → 2021-10-29 | Outpatient (CLI) | payer MEDICARE, OTHER, SELFPAY ==
--- NOTE | 2021-10-29 07:09 | BI_ITS ---
MAMMOGRAPHY - BILATERAL SCREENING REASON FOR EXAM: Female, 71 years old. Routine annual screening examination. PERTINENT HISTORY: Non-contributory. TECHNIQUE: Digital bilateral breast arash (3D mammographic acquisition) in the CC and MLO projections. 2-D mediolateral oblique (MLO) and craniocaudad (CC) views of both breasts were obtained. CAD: Full Field Digital Mammography with Computer Added Detection was performed. COMPARISON: Comparison is made with prior study dated 10/24/2020 and 09/12/2019. FINDINGS: Breast Composition: The breasts are heterogeneously dense, which may obscure small masses. There are no dominant masses or suspicious calcifications. No other significant abnormalities are identified. There has been no significant change since the prior study. BI/SCRN MAMM (CAD)W/ARASH BILAT IMPRESSION: Stable bilateral screening mammogram. Yearly follow-up mammogram recommended. (A) ASSESSMENT CATEGORY: BIRADS Category 1: Negative. A letter regarding these results will be sent to the patient by the facility within 30 days. Approximately 10% of breast cancers are not detected by mammography. A normal mammogram should not delay biopsy of a clinically suspicious abnormality. [id number] Electronically Signed: Keyon Seth MD at 8:50 EDT ,
== END | disposition home or self-care (01) ==
LOC: OPBI 07:05
PROVIDERS: PCP Family Medicine; Visit Provider Family Medicine
DX: Z12.31 Encounter for screening mammogram for malignant neoplasm of breast (principal)
CPT/HCPCS: 77063; 77067

== ENCOUNTER → 2022-04-19 | Outpatient (CLI) | payer MEDICARE, SELFPAY ==
--- NOTE | 2022-04-19 11:11 | RAD_ITS ---
STUDY: X-RAY - LEFT HUMERUS REASON FOR EXAM: Female, 71 years old. Persistent pain. TECHNIQUE: 2 view(s) of the humerus. COMPARISON: None. FINDINGS: Osteopenia. Arthrosis of the glenohumeral and acromioclavicular joints. Sclerosis and cystic changes of the humeral head. There is no demonstrated soft tissue abnormality. RAD/Humerus min 2 Views IMPRESSION: Osteopenia with no acute abnormality. Electronically Signed: Ottoniel Vu, at 11:36 EST ,
--- NOTE | 2022-04-19 11:11 | RAD_ITS ---
STUDY: X-RAY - LEFT SHOULDER REASON FOR EXAM: Female, 71 years old. Persistent pain after fall. TECHNIQUE: 4 view(s) of the shoulder. COMPARISON: None. FINDINGS: Osteopenia. Mild arthrosis of the glenohumeral joint. Moderate arthrosis of the AC joint. Normal craniotomy. Sclerosis and cystic changes of the greater tuberosity of the humeral. The soft tissue structures are unremarkable. Normal visualized pulmonary apex. RAD/Shoulder min 2 Views IMPRESSION: Osteopenia with osteoarthritic changes. No acute abnormality or erosive changes. Electronically Signed: Ottoniel Vu, at 11:35 EST ,
== END | disposition home or self-care (01) ==
PROVIDERS: PCP Family Medicine; Referring Provider Family Medicine; Visit Provider Family Medicine
DX: M19.012 Primary osteoarthritis, left shoulder (principal); M79.602 Pain in left arm; M25.512 Pain in left shoulder
CPT/HCPCS: 73030; 73060

== ENCOUNTER → 2022-05-12 | Outpatient (CLI) | payer MEDICARE, SELFPAY ==
--- NOTE | 2022-05-12 17:02 | RAD_ITS ---
INDICATION: BRONCHITIS EXAMINATION/TECHNIQUE: X-RAY - XR Chest 2 Views COMPARISON: No previous relevant examinations available for comparison.. FINDINGS: LIFE-SUPPORT AND LINES: 1. None HEART AND VESSELS: The cardiac silhouette, pulmonary vasculature have normal appearance. No evidence of congestive failure. LUNGS AND PLEURAL SPACES: Lungs are clear. No focal infiltrate, consolidation or effusions. No evidence of pneumothorax. No pulmonary mass is noted. MEDIASTINUM AND HILAR REGIONS: No masses adenopathy noted. No areas of calcification. Visualized upper airway is normal in position. BONY ELEMENTS: Mild scoliotic curvature of thoracic spine. No acute bony changes. RAD/Chest PA and Lateral IMPRESSION: 1. No evidence of acute cardiopulmonary process Electronically Signed: Honorio Arce MD at 20:21 EST ,
== END | disposition home or self-care (01) ==
LOC: MTRAD 17:01
PROVIDERS: PCP Family Medicine; Referring Provider Family Medicine; Visit Provider Family Medicine
DX: J40 Bronchitis, not specified as acute or chronic (principal); M41.84 Other forms of scoliosis, thoracic region
CPT/HCPCS: 71046; 97110; 97140

== ENCOUNTER 2022-05-20 18:30 | Outpatient (RCR) | payer MEDICARE, SELFPAY ==
--- NOTE | 2022-04-23 12:13 | HP.PTEVAL_ITS ---
Patient's Visit Information QUINTON HERRING is a 71 year old F referred to Physical Therapy by Dr. Neal Regalado MD with a diagnosis of L shoulder pain. Date of Evaluation: 04/22/22 Physical Therapist: Alfonso Cavanaugh, PT, ATC - Visit Plan Frequency: 2-3x /Week Duration: 4-6 Weeks Plan: L shoulder strengthening (rot cuff), scap stab ex's, UBE, and HEP - Subjective Pt reports she has had constant L arm pain for 1 1/2 years. Pt reports she fell into a rock wall full force and hit her mid humerus region. Pt reports her pain was getting better, but notes she is now having difficulty with IADL's such as raising her arm above her head and scratching her back. Pt reports she cant raise her L UE high enough to wash her hair at this time. Pt notes the pain is on the lateral aspect of her L humerus near the deltoid insertion. Pt notes no tingling or numbness in her L UE. Pt reports she has difficulty with sleep at this time secondary to pain. Pt is R hand dominant. Pt reports she did have xrays last week which came back negative for a fracture. 1/10 pain while sitting at rest, 6/10 pain at worst (when she tries to reach overhead) - Pain L shoulder pain Pain Intensity (Out of 10): 1 Pain Intensity Range: 6 - Objective Neuro: B LE sensation is WNL to light touch. B bicipital reflex= 2/3. Palpation: Pt is very tender along the distribution of the supraspinatus. No obvious deformity at this time. ROM: R shoulder flex= 155, abd= 155, IR= WNL, ER= 45; L shoulder flex= 135, abd= 70, IR= severely limited, ER= 15. MMT: R s houlder flex= 15, abd= 27, IR= 22, ER= 17 #F; L shoulder flex= 7, abd= 9, IR= 14, ER= 16 #F. Special testing: Pos empty can, pos HK - Balance/Special Test Scores Quick DASH Score: 22.7250 - Goals Goal 1:: Decrease L shoulder pain x 50% to aid with sleep Goal Time Frame: 4-6 Weeks Goal 2:: Increase L shoulder flexion and abduction ROM x 20 degrees to aid with overhead activity Goal Time Frame: 4-6 Weeks Goal 3:: Increase L shoulder strength x 5 #F to aid with IADL's Goal Time Frame: 4-6 Weeks Goal 4:: I with HEP Goal Time Frame: 4-6 Weeks - Rehabilitation Potential Physical Therapy Diagnosis: L shoulder pain, weakness, and limited ROM secondary to L shoulder rot cuff syndrome Rehabilitation Potential: Good - Anticipated Interventions Patient/Client Instruction: Educate patient on: Condition, Plan of Care For the Purpose of:: To facilitate caregiver knowledge Therapeutic Exercise to Include: Strength training, Endurance training, Balance training, Active ROM, Scapular Strength/Stabilization For the Purpose of:: To decrease pain, To increase ROM, To improve muscle performance and motor function Cryotherapy (ice pack, ice massage): Yes For the Purpose of:: To decrease pain Thank you for the opportunity to evaluate your patient. For Medicare and Medicare HMO plans, please review the plan of care and approve it. It will need to be FAXED BACK to us at [phone] for Medicare purposes. For Medicare only, by signing this I certify the plan of care. Please let me know if there are questions or concerns regarding this plan of care. Physician Signature: Date:
--- NOTE | 2022-10-13 08:50 | HP.PTDCSUM ---
Discharge Summary D/C summary: It has been my pleasure to treat QUINTON HERRING referred by Dr. Neal Regalado MD, with the diagnosis of L shoulder pain for a total of 8 visit(s). Discharge Date: Please see the following information for a summary of their discharge status. Subjective Subjective: I am ready to be done with PT Pain L shoulder pain: Pain Intensity (Out of 10): 0 Overall Improvement % Improvement: 50 Objective Objective/Function: 0/10 pain at rest, increases to 3/10 pain at worst L shoulder ROM: flex= 140, abd= 125 degrees L shoulder MMT: flex= 15, abd= 23, IR= 20, ER= 16 #F Pt is I with HEP Goals Goal 1:: Decrease L shoulder pain x 50% to aid with sleep Goal Progress: Goal Met Goal 2:: Increase L shoulder flexion and abduction ROM x 20 degrees to aid with overhead activity Goal Progress: Goal Met Goal 3:: Increase L shoulder strength x 5 #F to aid with IADL's Goal Progress: Goal Met Goal 4:: I with HEP Goal Progress: Goal Met Plan Plan: Discharge to HEP D/C Information d/c sentence: If there are questions or concerns regarding this patient's physical therapy, please feel free to call me at [phone]. Thank you for the referral of this patient. Sincerely, Alfonso Cavanaugh, PT, ATC Balance/Gait/Functional tests Balance/Special Test Scores Quick DASH Score: 6.8175
== END 2022-05-20 19:00 | disposition home or self-care (01) ==
LOC: PT 18:30
PROVIDERS: PCP Family Medicine; Referring Provider Family Medicine; Visit Provider Family Medicine
DX: M79.602 Pain in left arm (principal)
CPT/HCPCS: 97110; 97140; 97161; 97164

== ENCOUNTER → 2022-10-04 | Outpatient (CLI) | payer MEDICARE, SELFPAY ==
[2022-10-04 12:32] LABS: Anion Gap 3 (5-15); BUN 11 mg/dL (7-18); BUN/Creat Ratio 14.7 RATIO (10-20); Calcium,Total 9.4 mg/dL (8.5-10.1); Chloride 107 mmol/L (98-107); Cholesterol 143 mg/dL (200); Creatinine, Serum 0.75 mg/dL (0.55-1.02); EST Glomerular Filtration Rate 81 mL/min (>60); Est Glom Filt Rate - Afr Amer 98 mL/min (>60); Glucose 93 mg/dL (74-106); High Density Lipoprotein 49 mg/dL; Potassium 4.1 mmol/L (3.5-5.1); Sodium Level 141 mmol/L (136-145); Triglycerides 94 mg/dL; Very Low Density Lipoprotein 19 mg/dL (5-40)
== END | disposition home or self-care (01) ==
LOC: MTLAB 09:45
PROVIDERS: PCP Family Medicine; Referring Provider Family Medicine; Visit Provider Family Medicine
DX: Z00.00 Encounter for general adult medical examination without abnormal findings (principal); I10 Essential (primary) hypertension; E78.5 Hyperlipidemia, unspecified
CPT/HCPCS: 36415; 80048; 80061

== ENCOUNTER → 2022-11-02 | Outpatient (CLI) | payer MEDICARE, SELFPAY ==
--- NOTE | 2022-11-02 09:11 | BI_ITS ---
MAMMOGRAPHY - BILATERAL SCREENING REASON FOR EXAM: Female, 72 years old. Routine annual screening examination. PERTINENT HISTORY: Non-contributory. TECHNIQUE: Digital bilateral breast arash (3D mammographic acquisition) in the CC and MLO projections. 2-D mediolateral oblique (MLO) and craniocaudad (CC) views of both breasts were obtained. CAD: Full Field Digital Mammography with Computer Added Detection was performed. COMPARISON: Comparison is made with prior study dated October 29, 2021 and October 24, 2020. FINDINGS: Breast Composition: The breasts are heterogeneously dense, which may obscure small masses. There are no dominant masses or suspicious calcifications. No other significant abnormalities are identified. There has been no significant change since the prior study. BI/SCRN MAMM (CAD)W/ARASH BILAT IMPRESSION: Stable bilateral screening mammogram. Yearly follow-up mammogram recommended. (A) ASSESSMENT CATEGORY: BIRADS Category 1: Negative. A letter regarding these results will be sent to the patient by the facility within 30 days. Approximately 10% of breast cancers are not detected by mammography. A normal mammogram should not delay biopsy of a clinically suspicious abnormality. [id number] Electronically Signed: Keyon Seth MD at 10:47 EDT ,
--- NOTE | 2022-11-02 09:16 | BD_ITS ---
STUDY: DUAL ENERGY X-RAY ABSORPTIOMETRY / DXA REASON FOR EXAM: Female, 72 years old. [id number] TECHNIQUE: Bone Mineral Density (BMD) measurements of lumbar spine and bilateral hips were obtained. COMPARISON: Comparison is made with prior study of August 19, 2015. FINDINGS: Lumbar Spine (L1-L4): g/cm2 (0.833) / T-score (-1.9) / Z-score (0.3) Findings are suggestive of osteopenia with a moderate fracture risk. Left Femur Total: g/cm2 (0.672) / T-score (-2.2) / Z-score (-0.6) Left Femoral Neck: g/cm2 (0.591) / T-score (-2.3) / Z-score (-0.4) Right Femur Total: g/cm2 (0.649) / T-score (-2.4) / Z-score (-0.8) Right Femoral Neck: g/cm2 (0.578) / T-score (-2.4) / Z-score (-0.5) The T-Scores on the most recent prior examination were: Lumbar Spine (L1-L4): There has been improvement of bone density since the previous examination. Left Femur Total: which represents a worsening of 3%. Right Femur Total: which represents a worsening of 4%. BD/Dexa Bone Density Study IMPRESSION: The patient is considered osteopenic as outlined below according to World Medardo Organization (WHO) criteria with a high fracture risk. There has been worsening of bone density since the previous examination. Reference Information: The T-score is the number of standard deviations above or below the standard which is normal for young adults at their peak bone mineral density. The World Health Organization (WHO) interprets the T-scores as follows: Above -1 Normal bone density Between -1 and -2.5 Osteopenia Equal to / or below -2.5 Osteoporosis As a practical clinical guideline, osteopenia may be graded as follows: Mild -1 through -1.5 Moderate -1.6 through -2.0 Severe -2.1 through -2.4 The Z-score is the number of standard deviations above or below age-matched controls. A Z-score of less than -1.5 would be considered abnormal. References: 1. NIH Osteoporosis and Related Bone Diseases www osteo.org 2. International Society for Clinical Densitometry www iscd.org 3. National Osteoporosis Foundation www nof.org Electronically Signed: Keyon Seth MD at 13:56 EDT ,
== END | disposition home or self-care (01) ==
LOC: OPBD 09:10
PROVIDERS: PCP Family Medicine; Referring Provider Family Medicine; Visit Provider Family Medicine
DX: Z12.31 Encounter for screening mammogram for malignant neoplasm of breast (principal); Z78.0 Asymptomatic menopausal state
CPT/HCPCS: 77063; 77067; 77080

== ENCOUNTER → 2023-08-04 | Outpatient (CLI) | payer MEDICARE, SELFPAY | END | disposition home or self-care (01) | PROVIDERS: PCP Family Medicine; Referring Provider Family Medicine; Visit Provider Family Medicine | DX: T78.40XA Allergy, unspecified, initial encounter (principal) | CPT/HCPCS: 36415; 86003 ==

== ENCOUNTER → 2023-10-05 | Outpatient (CLI) | payer MEDICARE, SELFPAY ==
[2023-10-05 12:53] LABS: Anion Gap 6 (5-15); BUN 13 mg/dL (7-18); BUN/Creat Ratio 21.4 RATIO (10-20); Calcium,Total 9.7 mg/dL (8.5-10.1); Chloride 106 mmol/L (98-107); Cholesterol 152 mg/dL (200); Creatinine, Serum 0.61 mg/dL (0.55-1.02); EST Glomerular Filtration Rate 103 mL/min (>60); Est Glom Filt Rate - Afr Amer 124 mL/min (>60); Glucose 91 mg/dL (74-106); High Density Lipoprotein 51 mg/dL; Potassium 4.1 mmol/L (3.5-5.1); Sodium Level 141 mmol/L (136-145); Triglycerides 104 mg/dL; Very Low Density Lipoprotein 21 mg/dL (5-40)
== END | disposition home or self-care (01) ==
LOC: MFPLAB 10:11
PROVIDERS: PCP Family Medicine; Visit Provider Family Medicine
DX: Z00.00 Encounter for general adult medical examination without abnormal findings (principal); Z13.6 Encounter for screening for cardiovascular disorders
CPT/HCPCS: 36415; 80048; 80061

== ENCOUNTER → 2023-11-09 | Outpatient (CLI) | payer MEDICARE, SELFPAY ==
--- NOTE | 2023-11-09 07:13 | BI_ITS ---
MAMMOGRAPHY - BILATERAL SCREENING REASON FOR EXAM: Female, 73 years old. Routine annual screening examination. PERTINENT HISTORY: Non-contributory. Remote right excisional breast biopsy. TECHNIQUE: Digital bilateral breast arash (3D mammographic acquisition) in the CC and MLO projections. 2-D mediolateral oblique (MLO) and craniocaudad (CC) views of both breasts were obtained. CAD: Full Field Digital Mammography with Computer Added Detection was performed. COMPARISON: Comparison is made with prior study dated November 02, 2022 and October 29, 2021. FINDINGS: Breast Composition: The breasts are heterogeneously dense, which may obscure small masses. There are no dominant masses or suspicious calcifications. No other significant abnormalities are identified. There has been no significant change since the prior study. BI/SCRN MAMM (CAD)W/ARASH BILAT IMPRESSION: Stable bilateral screening mammogram. Yearly follow-up mammogram recommended. (A) ASSESSMENT CATEGORY: BIRADS Category 1: Negative. A letter regarding these results will be sent to the patient by the facility within 30 days. Approximately 10% of breast cancers are not detected by mammography. A normal mammogram should not delay biopsy of a clinically suspicious abnormality. [id number] Electronically Signed: Keyon Seth MD at 8:37 EDT ,
== END | disposition home or self-care (01) ==
LOC: OPBI 07:10
PROVIDERS: PCP Family Medicine; Referring Provider Family Medicine; Visit Provider Family Medicine
DX: Z12.31 Encounter for screening mammogram for malignant neoplasm of breast (principal)
CPT/HCPCS: 77063; 77067

== ENCOUNTER → 2024-01-06 | Outpatient (CLI) | payer MEDICARE, SELFPAY ==
--- NOTE | 2024-01-06 15:30 | RAD_ITS ---
STUDY: X-RAY - LUMBAR SPINE REASON FOR EXAM: Female, 73 years old. BACK PAIN TECHNIQUE: 5 view(s) of the lumbar spine were obtained. COMPARISON: None FINDINGS: Normal lumbar lordosis. There is moderate to severe levo scoliosis or splinting due to muscle spasm.. There is a normal alignment of the vertebrae. Normal vertebral bodies and endplates. Normal disc space heights. . There is grade 1 spondylolisthesis at L4-5 The soft tissue structures are unremarkable. RAD/L/S Spine Min 4 Views IMPRESSION: Scoliosis and mild degenerative change. No acute fracture or other significant bony pathology Electronically Signed: Oz Matos MD at 16:25 EDT ,
== END | disposition home or self-care (01) ==
LOC: MTRAD 15:28
PROVIDERS: PCP Family Medicine; Referring Provider Family Medicine; Visit Provider Family Medicine
DX: M54.9 Dorsalgia, unspecified (principal)
CPT/HCPCS: 72110

== ENCOUNTER → 2024-04-26 | Outpatient (CLI) | payer MEDICARE, SELFPAY ==
[2024-04-26 10:50] LABS: Anion Gap 5 (5-15); BUN 14 mg/dL (7-18); BUN/Creat Ratio 20.6 RATIO (10-20); Calcium,Total 9.9 mg/dL (8.5-10.1); Chloride 106 mmol/L (98-107); Cholesterol 187 mg/dL (200); Creatinine, Serum 0.68 mg/dL (0.55-1.02); EST Glomerular Filtration Rate 90 mL/min (>60); Est Glom Filt Rate - Afr Amer 109 mL/min (>60); Glucose 94 mg/dL (74-106); High Density Lipoprotein 58 mg/dL; Potassium 4.2 mmol/L (3.5-5.1); Sodium Level 141 mmol/L (136-145); Triglycerides 125 mg/dL; Very Low Density Lipoprotein 25 mg/dL (5-40)
== END | disposition home or self-care (01) ==
LOC: MTLAB 07:57
PROVIDERS: PCP Family Medicine; Referring Provider Family Medicine; Visit Provider Family Medicine
DX: I10 Essential (primary) hypertension (principal)
CPT/HCPCS: 36415; 80048; 80061

== ENCOUNTER → 2024-05-31 | Outpatient (CLI) | payer MEDICARE, SELFPAY | END | disposition home or self-care (01) | LOC: MFPLAB 16:38 | PROVIDERS: PCP Family Medicine; Referring Provider Family Medicine; Visit Provider Family Medicine | DX: R30.0 Dysuria (principal) | CPT/HCPCS: 87086; 87088 ==

== ENCOUNTER → 2024-09-11 | Outpatient (CLI) | payer MEDICARE, SELFPAY | END | disposition home or self-care (01) | LOC: LABSPEC 11:17 | PROVIDERS: PCP Family Medicine; Referring Provider Family Medicine; Visit Provider Family Medicine | DX: R39.89 Other symptoms and signs involving the genitourinary system (principal) | CPT/HCPCS: 87077; 87086; 87088; 87186 ==

== ENCOUNTER → 2024-10-22 | Outpatient (CLI) | payer MEDICARE, SELFPAY ==
[2024-10-22 12:54] LABS: Anion Gap 10 (5-15); BUN 15 mg/dL (4-19); BUN/Creat Ratio 21.2 RATIO (10-20); Calcium,Total 9.7 mg/dL (7.6-11.0); Carbon Dioxide 27.0 mmol/L (21.0-32.0); Chloride 105 mmol/L (98-108); Glucose 87 mg/dL (70-99); Potassium 4.0 mmol/L (3.3-5.1)
== END | disposition home or self-care (01) ==
LOC: MFPLAB 10:45
PROVIDERS: PCP Family Medicine; Referring Provider Family Medicine; Visit Provider Family Medicine
DX: I10 Essential (primary) hypertension (principal)
CPT/HCPCS: 36415; 80048

== ENCOUNTER → 2024-11-12 | Outpatient (CLI) | payer MEDICARE, SELFPAY ==
--- NOTE | 2024-11-12 13:12 | BI_ITS ---
EXAM: SCRN MAMM (CAD)W/ARASH BILAT DATE: 11/12/2024 CLINICAL HISTORY: F, Age 74 y/o , SCREENING TECHNIQUE: SCRN MAMM (CAD)W/ARASH BILAT COMPARISON: Prior exam(s) dated 11/09/2023 and 11/02/2022. FINDINGS: TISSUE DENSITY: There are scattered areas of fibroglandular density. Bilateral Breast Mammographic Findings: Benign-appearing round macrocalcifications and microcalcifications are seen in breast. No suspicious masses, suspicious cluster of microcalcifications, architectural distortion or secondary sign of malignancy is identified in either breast. There is a 12 mm partially obscured isodense mass in the superior, slightly outer, far posterior aspect of the right breast with associated benign-appearing macrocalcifications and round microcalcifications. This is most compatible with a degenerating fibroadenoma. Due to the far posterior location of the mass, it is not entirely included on this study. BI/SCRN MAMM (CAD)W/ARAHS BILAT IMPRESSION: Benign screening mammogram. OVERALL FINAL ASSESSMENT BI-RADS 2: BENIGN RECOMMENDATION: Routine annual follow-up in 1 Year A letter with findings and recommendations will be mailed to the patient. Reading Location: [id number]
--- OUTSIDE RECORDS SUMMARY | 2024-11-12 22:20 | XMS RPT_ITS | CCD ---
Author Organization [facility] Care Team Providers Care Carton Forming Machine Adjuster Name Role Phone Dr. Neal Regalado Primary Care Provider Dr. Billy Aguilera Attending Provider [phone] [phone] Primary Care Provider Unavaildiego Regalado MD, Dr. De Jesus Primary Care Provider Fabricio BRINK, Dr. De Jesus Attending Provider [phone] Fabricio BRINK, Dr. De Jesus Referring Provider Fabricio BRINK, Dr. De Jesus Primary Care Provider Fabricio BRINK, Dr. De Jesus Attending Provider Fabricio BRINK, Dr. De Jesus Referring Provider Neal Regalado Attending Unavailable Regalado, Neal Referring Unavailable Regalado, Neal Primary Care Unavailable Regalado, Neal Attending Unavailable Regalado, Neal Referring Unavailable Regalado, Neal Primary Care Unavailable Regalado, Neal Referring Unavailable Regalado, eNal Attending Unavailable Regalado, Neal Primary Care Unavailable Regalado, Neal Referring Unavailable Regalado, Neal Primary Care Unavailable Regalado, Neal Attending Unavailable Regalado, Neal Referring Unavailable Regalado, Neal Primary Care Unavailable Regalado, Neal Attending Unavailable Regalado, Neal Attending Unavailable Regalado, Neal Referring Unavailable Regalado, Neal Primary Care Unavailable Regalado, Neal Referring Unavailable Regalado, Neal Primary Care Unavailable Regalado, Neal Attending Unavailable Regalado, Neal Referring Unavailable Regalado, Neal Primary Care Unavailable Regalado, Neal Attending Unavailable Allergies Allergy Classification Reported Allergen(s) Allergy Type Date of Onset Reaction(s) Facility (12 sources) Menthol Drug Allergy [address] [facility] (1 source) Escitalopram Drug Allergy 3 Other: See Comments [facility] (1 source) Menthol Drug Allergy 0 [facility] Medications Current Medications Medication Drug Class(es) Dates Sig (Normalized) Sig (Original) acetaminophen 500 mg oral tablet (11 sources) Start: 04-30-2019 take 500-1000 mg by mouth every six hours as needed for pain Acetaminophen 500 MG tablet Active 500 - 1000 mg PO EVERY 6 HOURS NEEDED as needed for Pain Or Fever April 30, 2019 1:00am cholecalciferol 0.125 mg oral capsule (12 sources) Vitamin D Start: 04-10-2017 take 1 capsule by mouth once daily Cholecalciferol (Vitamin D3) 5,000 UNIT capsule Active 5000 U PO DAILY April 10, 2017 1:00am Comment on above: Cholecalciferol (Vit parkinson D3) Active 5000 UNIT DAILY April 10, 2017 8:28pm predniSONE 20 mg oral tablet (1 source) Start: 04-23-2022 End: 04-28-2022 take 2 tablets by mouth once daily predniSONE (DELTASONE) 20 mg tablet Take 2 tablets by mouth once daily for 5 days. 10 tablet 0 04/23/2022 04/28/2022 Active Comment on above: Take 2 tablets by [facility] once daily for 5 days. propranolol hydrochloride 40 mg oral tablet (12 sources) beta-Adrenergic Sara Start: 04-10-2017 take 1 tablet by mouth once daily Propranolol 40 MG tablet Active 40 mg PO DAILY April 10, 2017 1:00am tremors Completed/Discontinued Medications Medication Drug Class(es) Dates Sig (Normalized) Sig (Original) acetaminophen 325 mg / HYDROcodone bitartrate 5 mg oral tablet (11 sources) Opioid Agonist Start: 05-01-2019 End: 05-06-2019 Hydrocodone-Acetamino phen 1 TABLET tablet Discontinued 1 - 2 {tbl} PO EVERY 4 HOURS NEEDED as needed for Pain 50 5 0 May 01, 2019 May 05, 2019 1:00am May 06, 2019 1:08am Other acute postprocedural pain Start: 05-01-2019 End: 05-06-2019 take 1 tablet by mouth every four hours as needed Hydrocodone-Acetaminophen Discontinued 1 - 2 TABLET PO EVERY 4 HOURS NEEDED 50 5 May 01, 2019 May 06, 2019 1:08am [id number] 200 actuat albuterol 0.09 mg/actuat metered dose inhaler (12 sources) beta2-Adrenergic Agonist Start: 04-30-2019 albut garrett HFA (PROVENTIL HFA, VENTOLIN HFA) 90 mcg/actuation inhaler Inhale as instructed. 0 04/30/2019 Active Start: 04-30-2019 Albuterol Sulf ate 1 PUFF inhaler Active 1 - 2 NMA INHALATION EVERY 6 HOURS NEEDED as needed for Asthma April 30, 2019 1:00am Start: 04-30-2019 take 1 puff(s) by in halation every six hours as needed Albuterol Sulfate Active 1 - 2 PUFF INHALATION EVERY 6 HOURS NEEDED April 30, 2019 1:00am Comment on above: Inhale as instructed . benzonatate 100 mg oral capsule (1 source) Non-narcotic Antitussive Start: 04-23-19 23 take 2 capsules by mouth every eight hours as needed benzonatate (TESSALON PERLE) 100 mg capsule Take 2 capsules by mouth three times daily as needed. 30 capsule 0 04/23/2022 Active Comment on above: Take 2 capsules by m outh three times daily as needed. fluticasone propionate 0.05 mg/actuat metered dose nasal spray (1 source) Corticosteroid Start: 01-27-20 22 take 1 spray(s) nasal route once daily fluticasone (FLONASE) 50 mcg/actuation nasal spray USE 1 SPRAY IN EACH NOSTRIL NIGHTLY 0 01/26/2022 Active Comment on above: USE 1 SPRAY IN EACH NOSTRIL NIGHTLY Problems Active Problems Problem Classification Problem Date Documented Date Episodic/Chronic Essential hypertension (12 sources) Benign hypertension; Translations: [Essential (primary) hypertension] Onset: 10-25-2024 05-20-2017 Chronic Genitourinary symptoms and ill-defined conditions (2 sources) Other symptoms and signs involving the genitourinary system; Translations: [Dysuria] Onset: 06-11-2024 Episodic Influenza (1 source) Influenza-like illness; Translations: [Influenza due to unidentified influenza virus with other respiratory manifestations] Episodic Intestinal obstruction without hernia (11 sources) Partial obstruction of small bowel; Translations: [Partial intestinal obstruction, unspecified as to cause] 05-20-2017 Episodic Melanomas of skin (11 sources) Malignant melanoma; Translations: [Malignant melanoma of skin, unspecified] 05-20-2017 Chronic Other screening for suspected conditions (not mental disorders or infectious disease) (11 sources) Computed tomography result abnormal; Translations: [Abnormal findings on diagnostic imaging of other specified body structures] 05-01-2019 Chronic Other screening for suspected conditions (not mental disorders or infectious disease) (2 sources) Encounter for screening mammogram for malignant neoplasm of breast; Translations: [Encounter for screening mammogram for malignant neoplasm of breast] Onset: 12-04-2023 Episodic Other upper respiratory disease (1 source) Pain in throat; Translations: [Pain in throat] Episodic Other upper respiratory infections (1 source) Upper respiratory infection; Translations: [Acute upper respiratory infection, unspecified] Episodic Past or Other Problems Problem Classification Problem Date Documented Da te Episodic/Chronic Other gastrointestinal disorders (1 source) Diarrhea, unspecified; Translations: [Diarrhea, unspecified] Onset: 08-03-2024 Episodic Spondylosis; intervertebral disc disorders; other back problems (1 source) Dorsalgia, unspecified; Translations: [Dorsalgia, unspecified] Onset: 02-03-2024 Episodic Results Test Name Value Interpretation Reference Range Facility Anion gap in Serum or Plasma Ordered By: Neal Regalado on 10-22-2024 Anion gap [Moles/Vol] 10 mmol/L - [facility] BUN/creatinine ratioOrdered By: Neal Regalado on 10-22-2024 Urea nitrogen/Creatinine [Mass ratio] 21.2 mg/mg High 01-28 [facility] Basic Metabolic Profile (BMP )on 10-22-2024 BUN/CRE 21.2 RATIO High 01-28 [facility] Comment on above: Performed By: #### L 500.2500 #### [facility] [address] [place], [address] Calcium [Mass/Vol] 9.7 mg/dL Normal 7.6-11.0 [facility] Comment on above: Performed By: #### L 500.2500 #### [facility] [address] [place], [address] Chloride [Moles/Vol] 105 mmol/L Normal 98-108 [facility] Comment on above: Performed By: #### L 500.2500 #### [facility] [address] [place], [address] CO2 [Moles/Vol] 27.0 mmol/L Normal 21.0-32.0 [facility] Comment on above: Performed By: #### L 500.2500 #### [facility] [address] [place], [address] Creatinine [Mass/Vol] 0.69 mg/dL Low 0.70-1.20 [facility] Comment on above: Performed By: #### L 500.2500 #### [facility] [address] [place], [address] GAP 10 Normal 5-15 [facility] Comment on above: Performed By: #### L 500.2500 #### [facility] [address] [place], [address] GFR/1.73 sq M.predicted among non-blacks MDRD (S/P/Bld) [Vol rate/Area] 91 mL/min/{1.73_m2} Normal >60 [facility] Comment on above: Result Comment: mL/m in/1.73m2 CKD-EPI Creatinine Equation (2020) Performed By: #### L 500.2500 #### [facility] [address] [place], [address] Glucose [Mass/Vol] 87 mg/dL Normal 70-99 [facility] Comment on above: Performed By: #### L 500.2500 #### [facility] [address] [place], [address] Potassium [Moles/Vol] 4.0 mmol/L Normal 3.3-5.1 [facility] Comment on above: Performed By: #### L 500.2500 #### [facility] [address] [place], [address] Sodium [Moles/Vol] 143 mmol/L Normal 133-145 [facility] Comment on above: Performed By: #### L 500.2500 #### [facility] [address] [place], [place], [address] Urea nitrogen [Mass/Vol] 15 mg/dL Normal - [facility] Comment on above: Performed By: #### L 500.2500 #### [facility] [address] [place], [address] Carbon dioxide, total [Moles /volume] in Central venous bloodOrdered By: Neal Regalado on 10-22-2024 CO2 [Moles/Vol] 27.0 mmol/L 21.0-32.0 [facility] Chloride assayOrdered By: Florian Regalado on 10-22-2024 Chloride [Moles/Vol] 105 mmol/L 98-108 [facility] Glomerular filtration rate ( GFR) estimation/1.73 sq m using serum, plasma, or whole bOrdered By: Neal Regalado on 10-22-2024 GFR/1.73 sq M.predicted among non-blacks MDRD (S/P/Bld) [Vol rate/Area] 91 mL/min/{1.73_m2} >60 [facility] Comment on above: mL/min/1.73m2 CKD-EP I Creatinine Equation (2020) Potassium measurement (mass/ volume)Ordered By: Neal Regalado on 10-22-2024 Potassium (Unsp spec) [Mass/Vol] 4.0 mmol/L 3.3-5.1 [facility] Serum creatinine measurement (mass/volume)Ordered By: Neal Regalado on 10-22-2024 Creatinine [Mass/Vol] 0.69 mg/dL Low 0.70-1.20 [facility] Serum glucose measurement (m ass/volume)Ordered By: Neal Regalado on 10-22-2024 Glucose [Mass/Vol] 87 mg/dL 70-99 [facility] Serum or plasma calcium jeremías urement (mass/volume)Ordered By: Neal Regalado on 10-22-2024 Calcium [Mass/Vol] 9.7 mg/dL 7.6-11.0 [facility] Serum or plasma urea nitroge n measurement (mass/volume)Ordered By: Neal Regalado on 10-22-2024 Urea nitrogen [Mass/Vol] 15 mg/dL -19 [facility] Sodium levelOrdered By: Neal Regalado on 10-22-2024 Sodium [Moles/Vol] 143 mmol/L 133-145 [facility] Urine Cultureon 09-14-2024 [facility] Escherichia coli Leon Count >100,000 Morganella morganii sp morgani Morganella morganii sp morgani Escherichia coli: REACTION Ampicillin Islt TRAN R Ampicillin+Sulbac Islt TRAN <=2 Cefepime Islt TRAN <=0.12 S cefTRIAXone Islt TRAN <=0.25 S Ciprofloxacin Islt TRAN <=0.06 S B-Lactamase Extended Susc Islt NEG Gentamicin Islt TRAN <=1 S levoFLOXacin Islt TRAN <=0.12 S Meropenem Islt TRAN <=0.25 S Nitrofurantoin Islt TRAN <=16 S Pip+Tazo Islt TRAN <=4 S TMP SMX Islt TRAN <=20 S Morganella morganii sp morgani: REACTION Ampicillin Islt TRAN >=32 R Ampicillin+Sulbac Islt TRAN 16 Ciprofloxacin Islt TRAN <=0.06 S Gentamicin Islt TRAN <=1 S levoFLOXacin Islt TRAN <=0.12 S Meropenem Islt TRAN <=0.25 S Nitrofurantoin Islt TRAN R Pip+Tazo Islt TRAN <=4 S TMP SMX Islt TRAN <=20 S Normal [facility] Comment on above: Performed By: #### M 100.2200 #### [facility] [address] [place] [id number] Urine cultureOrdered By: Kathy Regalado on 09-11-2024 Bacteria identified Cx Nom (U) Escherichia coli Abnormal [facility] Bacteria identified Cx Nom (U) Morganella morganii sp morgani Abnormal [facility] Urine Cultureon 06-02-2024 [facility] Mixed Gram Pos Gram Neg Org Leon Count 11,000-25,000 M[facility] Mixed contaminants. Submit a new specimen if indicated. Normal [facility] Comment on above: Performed By: #### M 100.2200 #### [facility] [address], [place], [id number] Urine cultureOrdered By: Kathy Regalado on 02-20-2025 Bacteria identified Cx Nom (U) Mixed Gram Pos & Gram Neg Org Abnormal [facility] Basic Metabolic Profile (BMP )on 04-26-2024 BUN/CRE 20.6 RATIO High 10-20 [facility] Comment on above: Performed By: #### L 500.2500, L500.4100 #### [facility] [address] [place], [address] CA,Total 9.9 mg/dL Normal 8.5-10.1 [facility] Comment on above: Performed By: #### L 500.2500, L500.4100 #### [facility] [address] [place], [address] Chloride [Moles/Vol] 106 mmol/L Normal 98-107 [facility] Comment on above: Performed By: #### L 500.2500, L500.4100 #### [facility] [address] [place], [address] CO2 [Moles/Vol] 30.0 mmol/L Normal 21.0-32.0 [facility] Comment on above: Performed By: #### L 500.2500, L500.4100 #### [facility] [address] [place], [address] Creatinine [Mass/Vol] 0.68 mg/dL Normal 0.55-1.02 [facility] Comment on above: Result Comment: The validity of the calculated GFR GFRAA in patients over 70 years has not been determined. Clinical correlation is essential. Performed By: #### L 500.2500, L500.4100 #### [facility] [address] [place], [address] EST GFR - AA 109 mL/min Normal >60 [facility] Comment on above: Result Comment: Afri can [place] GFR Calc Performed By: #### L 500.2500, L500.4100 #### [facility] [address] [place], [address] GAP 5 Normal 5-15 [facility] Comment on above: Performed By: #### L 500.2500, L500.4100 #### [facility] [address] [place], [address] GFR/1.73 sq M.predicted among non-blacks MDRD (S/P/Bld) [Vol rate/Area] 90 mL/min/{1.73_m2} Normal >60 [facility] Comment on above: Result Comment: Non- GFR Calc Performed By: #### L 500.2500, L500.4100 #### [facility] [address] [place], [address] Glucose [Mass/Vol] 94 mg/dL Normal 74-106 [facility] Comment on above: Performed By: #### L 500.2500, L500.4100 #### [facility] [address] [place], [address] Potassium [Moles/Vol] 4.2 mmol/L Normal 3.5-5.1 [facility] Comment on above: Performed By: #### L 500.2500, L500.4100 #### [facility] [address] [place], [address] Sodium [Moles/Vol] 141 mmol/L Normal 136-145 [facility] Comment on above: Performed By: #### L 500.2500, L500.4100 #### [facility] [address] [place], [address] Urea nitrogen [Mass/Vol] 14 mg/dL Normal 7-18 [facility] Comment on above: Performed By: #### L 500.2500, L500.4100 #### [facility] [address] [place], [address] Lipid Profileon 04-26-2024 Cholesterol [Mass/Vol] 187 mg/dL Normal 200 [facility] Comment on above: Result Comment: <200 mg/dL Desirable 200-240 mg/dL Borderline >240 mg/dL High Risk Performed By: #### L 500.2500, L500.4100 #### [facility] [address] [place], [address] Cholesterol in HDL [Mass/Vol] 58 mg/dL Normal [facility] Comment on above: Result Comment: The drugs N-Acetylcysteine and Metamizole may falsely depress this assay. Reference Range HDL <40 mg/dL Low HDL Cholesterol HDL >or= 60 mg/dL High HDL Cholesterol Performed By: #### L 500.2500, L500.4100 #### [facility] [address] [place], [address] Cholesterol in LDL [Mass/Vol] 104 mg/dL Normal 0-130 [facility] Comment on above: Performed By: #### L 500.2500, L500.4100 #### [facility] [address] [place], [address] Cholesterol in VLDL [Mass/Vol] 25 mg/dL Normal 5-40 [facility] Comment on above: Performed By: #### L 500.2500, L500.4100 #### [facility] [address] [place], [address] Triglyceride [Mass/Vol] 125 mg/dL Normal [facility] Comment on above: Result Comment: The drugs N-Acetylcysteine and Metamizole may falsely depress this assay. Serum Triglycerides Reference Interval Normal <150 mg/dL Borderline high 150 - 199 mg/dL High 200 - 499 mg/dL Very High > or = 500 mg/dL Performed By: #### L 500.2500, L500.4100 #### [facility] [address] [place], [address] L/S Spine Min 4 Viewson - L/S Spine Min 4 Views [facility] Imaging Services [address] [place] [address] L/S Spine Min 4 Views MR#: [id number] Acct: [id number] Name: QUINTON VALENTINO Rep #: [id number] : 1950 F 73 From: Oz Matos MD PCP: Dr. Neal Regalado MD Status: REG CLI Study: L/S Spine Min 4 Views Date of Exam: 01/06/24 Exam# [id number] Ordering Dr: Neal Regalado MD [id number] STUDY: X-RAY - LUMBAR SPINE REASON FOR EXAM: Female, 73 years old. BACK PAIN TECHNIQUE: 5 view(s) of the lumbar spine were obtained. COMPARISON: None FINDINGS: Normal lumbar lordosis. There is moderate to severe levo scoliosis or splinting due to muscle spasm.. There is a normal alignment of the vertebrae. Normal vertebral bodies and endplates. Normal disc space heights. . There is grade 1 spondylolisthesis at L4-5 The soft tissue structures are unremarkable. RAD/L/S Spine Min 4 Views IMPRESSION: Scoliosis and mild degenerative change. No acute fracture or other significant bony pathology Electronically Signed: Oz Matos MD at 16:25 EDT Reading Location ID and State: [facility] [place] Tel , Service support , CC: Dr. Neal Regalado MD Bindery Machine Setter/Set Up Operator: Signed Normal [facility] SCRN MAMM (CAD)W/ARASH BILATo n 11-09-2023 SCRN MAMM (CAD)W/ARASH BILAT [facility] Imaging Services [address] [place] [address] SCRN MAMM (CAD)W/ARASH BILAT MR#: [id number] Acct: [id number] Name: QUINTON VALENTINO Rep #: [id number] : 1950 F 73 From: Keyon johnson MD PCP: Dr. Neal Regalado MD Status: [facility] Study: SCRN MAMM (CAD)W/ARASH BILAT Date of Exam: 10/11 05/04 Exam# [id number] Ordering Dr: Neal Regalado MD [id number] MAMMOGRAPHY - BILATERAL SCREENING REASON FOR EXAM: Female, 73 years old. Routine annual screening examination. PERTINENT HISTORY: Non-contributory. Remote right excisional breast biopsy. TECHNIQUE: Digital bilateral breast arash (3D mammographic acquisition) in the CC and MLO projections. 2-D mediolateral oblique (MLO) and craniocaudad (CC) views of both breasts were obtained. CAD: Full Field Digital Mammography with Computer Added Detection was performed. COMPARISON: Comparison is made with prior study dated November 02, 2022 and October 29, 2021. FINDINGS: Breast Composition: The breasts are heterogeneously dense, which may obscure small masses. There are no dominant masses or suspicious calcifications. No other significant abnormalities are identified. There has been no significant change since the prior study. BI/SCRN MAMM (CAD)W/ARASH BILAT IMPRESSION: Stable bilateral screening mammogram. Yearly follow-up mammogram recommended. (A) ASSESSMENT CATEGORY: BIRADS Category 1: Negative. A letter regarding these results will be sent to the patient by the facility within 30 days. Approximately 10% of breast cancers are not detected by mammography. A normal mammogram should not delay biopsy of a clinically suspicious abnormality. [id number] Electronically Signed: Keyon Seth MD at 8:37 EDT , CC: Dr. Neal Regalado MD Bindery Machine Setter/Set Up Operator: Signed Normal [facility] Basophil percentageOrdered B y: Neal Regalado on 10-04-2022 Chloride [Moles/Vol] 107 mmol/L 98-107 [facility] Cholesterol [Mass/Vol] 143 mg/dL <200 [facility] Comment on above: <200 mg/dL Desirable 200-240 mg/dL Borderline >240 mg/dL High Risk Glucose [Mass/Vol] 93 mg/dL 74-106 [facility] Potassium [Moles/Vol] 4.1 mmol/L 3.5-5.1 [facility] Sodium [Moles/Vol] 141 mmol/L 136-145 [facility] Triglyceride [Mass/Vol] 94 mg/dL <199 [facility] Comment on above: The drugs N-Acetylcy steine and Metamizole may falsely depress this assay.Serum Triglycerides Reference Interval Normal <150 mg/dL Borderline high 150 - 199 mg/dL High 200 - 499 mg/dL Very High > or = 500 mg/dL Laboratory - Chemistry and C hemistry - challengeOrdered By: Neal Regalado on 10-04-2022 CO2 [Moles/Vol] 31.0 mmol/L 21.0-32.0 [facility] Urea nitrogen/Creatinine [Mass ratio] 14.7 mg/mg 10-20 [facility] No Panel InformationOrdered By: Neal Regalado on 10-04-2022 Estimated GFR (MDRD) Amer 98 mL/min >60 [facility] Comment on above: GFR Calc Estimated GFR (MDRD) Non-Af Amer 81 mL/min >60 [facility] Comment on above: Non- GFR Calc Serum or plasma calcium jeremías urement (mass/volume)Ordered By: Neal Regalado on 10-04-2022 Calcium [Mass/Vol] 9.4 mg/dL 8.5-10.1 [facility] Serum or plasma cholesterol in HDL measurement (mass/volume)Ordered By: Neal Regalado on 10-04-2022 Cholesterol in HDL [Mass/Vol] 49 mg/dL >40 [facility] Comment on above: The drugs N-Acetylcy steine and Metamizole may falsely depress this assay. Reference Range HDL <40 mg/dL Low HDL Cholesterol HDL >or= 60 mg/dL High HDL Cholesterol Serum or plasma cholesterol in VLDL measurement (mass/volume)Ordered By: Neal Regalado on 10-04-2022 Cholesterol in VLDL [Mass/Vol] 19 mg/dL 5-40 [facility] Serum or plasma creatinine m easurement (mass/volume)Ordered By: Neal Regalado on 10-04-2022 Creatinine [Mass/Vol] 0.75 mg/dL 0.55-1.02 [facility] Comment on above: The validity of the calculated GFR & GFRAA in patients over 70 years has not been determined. Clinical correlation is essential. Serum or plasma low density lipoprotein (LDL) cholesterol measurement (mass/volume)Ordered By: Neal Regalado on 10-04-2022 Cholesterol in LDL [Mass/Vol] 75 mg/dL 0-130 [facility] Serum or plasma urea nitroge n measurement (mass/volume)Ordered By: Neal Regalado on 10-04-2022 Urea nitrogen [Mass/Vol] 11 mg/dL 7-18 [facility] Thin prep Papanicolaou smear with manual screeningOrdered By: Neal Regalado on 10-04-2022 Thin prep Papanicolaou smear with manual screening 3 5-15 [facility] CNPNon 04-24-2022 CNPN Telephone ([facility]) QUINTON VALENTINO ([id number]) 1950 F Date Time Provider Department 04/24/22 APOLONIA ORTEGA ONUR During your visit today, we recorded the following information about you: Brigida Barber MA 04/24/2022 1:22 PM Signed ----- Message from Apolonia Ortega APRN.[place] ADMINISTRATOR sent at 04/24/2022 11:32 AM EST ----- Please advise patient the COVID, flu test was negative. Brigida Barber MA 04/24/2022 1:24 PM Signed Patient notified of results, verbalized understanding. Brigida Barber MA Allergies As of Date: 04/24/2022 Noted Allergy Reaction LEXAPRO (ESCITALOPRAM) 04/23/2022 14 - Other: See Comments Comments: Pt reported vaginal bleeding. MENTHOL 05/01/2019 2 - Rash Date Reviewed: 04/23/2022 Reviewed by: Shannan Madrigal LPN - Fully Assessed Reason for Visit: Results [95] Prescriptions as of 04/24/2022 - albuterol HFA (PROVENTIL HFA, VENTOLIN HFA) 90 mcg/actuation inhaler Inhale as instructed. - Cholecalciferol, Vitamin D3, 125 mcg (5,000 unit) cap Cholecalciferol (Vitamin D3) Active 5000 UNIT DAILY April 10, 2017 8:28pm - fluticasone (FLONASE) 50 mcg/actuation nasal spray USE 1 SPRAY IN EACH NOSTRIL NIGHTLY - propranolol (INDERAL) 40 mg tablet - predniSONE (DELTASONE) 20 mg tablet Take 2 tablets by mouth once daily for 5 days. - benzonatate (TESSALON PERLE) 100 mg capsule Take 2 capsules by mouth three times daily as needed. Problem List As Of Date: 04/24/2022 (None) Encounter Status:Closed by BRIGIDA BARBER on 04/24/22 [facility] CNOVon 04-23-2022 CNOV Office Visit ([facility] ) QUINTON VALENTINO ([id number]) 1950 F Date Time Provider Department 04/23/22 7:00 PM JENA MOSS ONUR During your visit today, we recorded the following information about you: Temperature Pulse Respiration Weight 99.2 degrees 112/minute 18/minute 82.1 kg Jena Moss APRN.CNP 04/23/2022 7:29 PM Signed Subjective The history is provided by the patient. No concrete grinder operator was used. KINGSLEY Valentino is a 71 year old female who presents today for CC of cough, congestion, sore throat, sinus congestion for one day. She has used mucinex, and comtrex without relief Exposure to grandchildren that are ill, no known covid or flu. H/o asthma Pulse 112 Temp 37.3 ?C (99.2 ?F) (Tympanic) Resp 18 Wt 82.1 kg (181 lb) SpO2 96% Social History Tobacco Use Smoking status: Never Smokeless tobacco: Never Substance Use Topics Alcohol use: Never Drug use: Never No past medical history on file. I have confirmed and edited as necessary, the [facility] Review of Systems Constitutional: Positive for chills, fever and malaise/fatigue. HENT: Positive for congestion and sinus pain. Negative for ear pain and sore throat. Respiratory: Positive for cough. Negative for sputum production, shortness of breath and wheezing. Cardiovascular: Negative for chest pain. Gastrointestinal: Negative for abdominal pain, diarrhea, nausea and vomiting. Musculoskeletal: Positive for myalgias. Neurological: Negative for headaches. Objective Physical Exam Vitals and nursing note reviewed. HENT: Head: Normocephalic and atraumatic. Right Ear: Tympanic membrane, ear canal and external ear normal. Left Ear: Tympanic membrane, ear canal and external ear normal. Nose: Mucosal edema, congestion and rhinorrhea present. Right Sinus: No maxillary sinus tenderness or frontal sinus tenderness. Left Sinus: No maxillary sinus tenderness or frontal sinus tenderness. Mouth/Throat: Pharynx: Uvula midline. Posterior oropharyngeal erythema present. No oropharyngeal exudate. Cardiovascular: Rate and Rhythm: Normal rate and regular rhythm. Heart sounds: Normal heart sounds. Pulmonary: Effort: Pulmonary effort is normal. Breath sounds: Normal breath sounds. Lymphadenopathy: Head: Right side of head: No submental, submandibular or tonsillar adenopathy. Left side of head: No submental, submandibular or tonsillar adenopathy. Cervical: No cervical adenopathy. Skin: General: Skin is warm and dry. Neurological: Mental Status: She is alert. Psychiatric: Mood and Affect: Affect normal. ASSESSMENT/PLAN: 1. Throat pain - ICD9: 784.1, ICD10: R07.0 (primary diagnosis) Negative for strep Tylenol/ibuprofen Warm salt water gargles, honey, warm beverages - STREP A MOLECULAR (POC) 2. Influenza-like illness - ICD9: 487.1, ICD10: J11.1 Rapid flu is negative Covid testing sent. Home isolation Testing ordered Comfort measures discussed - see patient instructions. When to seek higher level of care Notified in 12-24 hours with results, available on [employer] - INFLUENZA AANDB MOLECULAR (POC) - 2019 CORONAVIRUS 3. URI with cough and congestion - ICD9: 465.9, ICD10: J06.9 - Discussed viral etiology and rationale for treatment. - Symptomatic treatment with prn analgesia - Supportive care with fluids and rest - Tessalon Perls - If covid negative will start prednisone if notices increased wheezing. - 2019 CORONAVIRUS Diagnosis and treatment plan were discussed and questions were answered to the patient's satisfaction. Pt acknowledged understanding of concepts and follow up plan. Specific signs and symptoms that would indicate the need for higher level of care were discussed in detail warranting prompt ER evaluation. Jena Moss APRN.ROOPA Moss APRN.ROOPA 04/23/2022 7:29 PM Addendum Strep is negative Flu is negative covid test ordered You will be notified in 12-24 hours Home isolation until results are back Rest, increase water intake Motrin or Tylenol as needed for fever or pain. Salt water gargles, chloraseptic spray or lozenges as needed for sore throat. Warm beverages, honey. Nasal saline spray as needed Cool mist humidifier at night Tylenol (generic acetaminophen) 500 mg-2 tabs every 8 hrs. as needed for fever and aches Ibuprofen 600 mg (3-200mg tablets) every 6 hours -Mucinex (generic is fine) Guaifenesin 1200 mg twice daily to help with cough and to thin out mucus Use prescribed inhalers as ordered Start Prednisone if covid is negative * Seek medical care immediately, call 911, go to ER if you have chest pain, difficulty breathing, shortness of breath, inability to swallow. Referring Provider: SELF [200] Allergies As of Date: 04/23/2022 Noted Allergy Reaction LEXAPRO (ESCITALOPRAM) 04/23/2022 14 - Other: See Comments Comments: Pt reported vaginal bleeding. MEN (more content not included)... Normal [facility] INFLUENZA A&B MOLECULAR (POC )on 04-23-2022 Flu A (POCT) Negative Negative [facility] Flu B (POCT) Negative Negative [facility] Procedural Control Valid [facility] SARS-CoV-2 RNA Resp Ql ИРИНА+p robeon 04-23-2022 SARS-CoV-2 (COVID-19) RNA ИРИНА+probe Ql (Resp) COVID 19 RESULT: SARS-CoV-2 (Agent of COVID-19) Not Detected by RT-PCR or equivalent method. This test was developed and its performance characteristics determined by [facility] [place]. This test has been authorized by FDA under an Emergency Use Authorization (EUA). This test has been validated in accordance with the FDA's Guidance Document Policy for Diagnostics Testing in Laboratories Certified to Perform High Complexity Testing under CLIA prior to Emergency use Authorization for Coronavirus Disease 2019 during the Public Health Emergency issued on June 09, 2019. Test performed by [facility], [facility] [place], [address] [place] [address]. Normal [facility] Comment on above: Performed By: #### [id number] #### [facility] CLIA [id number] [address] [place] [address] [place] STREP A MOLECULAR (POC)on Procedural Control Valid [facility] Strep A (POCT) Negative Negative [facility] Basophil percentageon 2021 Chloride [Moles/Vol] 106 mmol/L 98-[address] [facility] Work Phone: Cholesterol [Mass/Vol] 179 mg/dL <200 [place] [facility] Work Phone: Comment on above: <200 mg/dL Desirable 200-240 mg/dL Borderline >240 mg/dL High Risk Glucose [Mass/Vol] 87 mg/dL 74-106 [place] [facility] Work Phone: Potassium [Moles/Vol] 4.1 mmol/L 3.5-5.1 [address] [facility] Work Phone: Sodium [Moles/Vol] 140 mmol/L 136-145 [facility] Work Phone: Triglyceride [Mass/Vol] 144 mg/dL <199 [facility] Work Phone: Comment on above: The drugs N-Acetylcy steine and Metamizole may falsely depress this assay.Serum Triglycerides Reference Interval Normal <150 mg/dL Borderline high 150 - 199 mg/dL High 200 - 499 mg/dL Very High > or = 500 mg/dL Laboratory - Chemistry and C hemistry - challengeon 10-16-2021 CO2 [Moles/Vol] 30.0 mmol/L 21.0-32.0 [facility] Work Phone: Urea nitrogen/Creatinine [Mass ratio] 31.1 mg/mg 10-20 [facility] Work Phone: No Panel Informationon 10-16 Estimated GFR (MDRD) Amer 117 mL/min >60 [facility] Work Phone: Comment on above: GFR Calc Estimated GFR (MDRD) Non-Af Amer 97 mL/min >60 [facility] Work Phone: Comment on above: Non- GFR Calc Serum or plasma calcium jeremías urement (mass/volume)on 10-16-2021 Calcium [Mass/Vol] 9.5 mg/dL 8.5-10.1 [facility] Work Phone: Serum or plasma cholesterol in HDL measurement (mass/volume)on 10-16-2021 Cholesterol in HDL [Mass/Vol] 54 mg/dL >40 [facility] Work Phone: Comment on above: The drugs N-Acetylcy steine and Metamizole may falsely depress this assay. Reference Range HDL <40 mg/dL Low HDL Cholesterol HDL >or= 60 mg/dL High HDL Cholesterol Serum or plasma cholesterol in VLDL measurement (mass/volume)on 10-16-2021 Cholesterol in VLDL [Mass/Vol] 29 mg/dL 5-40 [facility] Work Phone: Serum or plasma creatinine m easurement (mass/volume)on 10-16-2021 Creatinine [Mass/Vol] 0.64 mg/dL 0.55-1.02 [facility] Work Phone: Comment on above: The validity of the calculated GFR & GFRAA in patients over 70 years has not been determined. Clinical correlation is essential. Serum or plasma low density lipoprotein (LDL) cholesterol measurement (mass/volume)on 10-16-2021 Cholesterol in LDL [Mass/Vol] 96 mg/dL 0-130 [facility] Work Phone: Serum or plasma urea nitroge n measurement (mass/volume)on 10-16-2021 Urea nitrogen [Mass/Vol] 20 mg/dL 7-18 [facility] Work Phone: Thin prep Papanicolaou smear with manual screeningon 10-16-2021 Thin prep Papanicolaou smear with manual screening 4 5-15 [facility] Work Phone: Vital Signs Date Time Vital Sign Value Performing Clinician Facility 11-02-2022 09:12-0400 Body height 167.64 cm [facility] 04-23-2022 18:54-0500 Body temperature 99.19 [degF] Jena Isa HOSPITALITY SPECIALIST.MIDDLEWARE ADMINISTRATOR Work Phone: [facility] 04-23-2022 18:54-0500 Body weight 82.1 kg Jena Isa HOSPITALITY SPECIALIST.MIDDLEWARE ADMINISTRATOR Work Phone: [facility] 04-23-2022 18:54-0500 Heart rate 112 /min Jena Isa HOSPITALITY SPECIALIST.MIDDLEWARE ADMINISTRATOR Work Phone: [facility] 04-23-2022 18:54-0500 Respiratory rate 18 /min Jena Isa HOSPITALITY SPECIALIST.MIDDLEWARE ADMINISTRATOR Work Phone: [facility] 04-23-2022 18:54-0500 SaO2% (BldA) [Mass fraction] 96 % Jena Isa HOSPITALITY SPECIALIST.MIDDLEWARE ADMINISTRATOR Work Phone: [facility] Encounters Encounter Date Encounter Type Care Provider Facility Start: 11-12-2024 [facility] Reg[facility] Facility:[facility] Start: 10-22-2024 End: 10-22-[address] Neal Regalado MD Work Phone: -[facility] Start: 10-22-2024 End: 10-22-[address] Neal Regalado MD -[facility] Start: 10-22-2024 End: 10-22-2024 ambulatory Neal Regalado Facility:[facility] Start: 09-11-2024 End: 09-11-[address] Neal Regalado MD Work Phone: [facility] Work Phone: Start: 09-11-2024 End: 09-11-[address] Neal Regalado MD -Laboratory [facility] Work Phone: Start: 09-11-2024 End: 09-11-2024 ambulatory Neal Regalado Facility:[facility] Start: 08-03-2024 ambulatory Neal Regalado Facility:[facility] Start: 05-31-2024 End: 05-31-[address] Neal Regalado MD -Laboratory [facility] Start: 05-31-2024 End: 05-31-2024 ambulatory Neal Regalado Facility:[facility] Start: 04-26-2024 End: 04-26-2024 ambulatory Neal Regalado Facility:[facility] Start: 01-06-2024 End: 01-06-2024 ambulatory Neal Regalado Facility:[facility] Start: 11-09-2023 End: 11-09-2023 ambulatory Neal Regalado Facility:[facility] Start: 08-04-2023 End: 08-04-2023 ambulatory [facility] Work Phone: Start: 08-04-2023 End: 08-04-2023 Patient encounter procedure [facility] Work Phone: Start: 11-02-2022 End: 11-02-2022 ambulatory [facility] Work Phone: Start: 11-02-2022 End: 11-02-2022 Patient encounter procedure [facility] Work Phone: Start: 10-04-2022 End: 10-04-2022 ambulatory [facility] Work Phone: Start: 10-04-2022 End: 10-04-2022 [facility] Work Phone: Start: 05-20-2022 [facility] Start: 05-12-2022 End: 05-12-2022 ambulatory [facility] Work Phone: Start: 05-12-2022 End: 05-12-2022 [facility] Start: 04-23-2022 End: 04-23-2022 ambulatory Facility:[facility] Start: 04-23-2022 End: 04-23-2022 Patient encounter procedure Jena Moss [facility] Work Phone: [facility] Comment on above: Throat pain (Primary Dx); Influenza-like illness; URI with cough and congestion Start: 04-22-2022 [facility] Start: 04-19-2022 End: 04-19-2022 ambulatory [facility] Work Phone: Start: 04-19-2022 End: 04-19-2022 Patient encounter procedure [facility] Start: 10-29-2021 End: 10-29-[address] Neal Regalado Work Phone: [facility] Start: 10-22-2021 Non-patient / Non-visit Dr. Florian Regalado Work Phone: [facility] Start: 10-22-2021 End: 10-22-[address] Neal Regalado Work Phone: [facility] Start: 10-16-2021 End: 10-16-2021 [facility] Procedures Date Procedure Procedure Detail Performing Clinician Start: 09-11-[address] Neal Regalado MD Work Phone: Start: 05-31-[address] Neal Regalado MD Work Phone: Start: 11-02-2022 Dual energy X-ray absorptiometry Start: 11-02-2022 Screening mammography Start: 05-12-2022 Plain chest X-ray Start: 04-23-2022 INFLUENZA A&B MOLECU LAR (POC) [facility] Provider Start: 04-23-2022 STREP A MOLECULAR (POC) Dahlia Older HOSPITALITY SPECIALIST.MIDDLEWARE ADMINISTRATOR Work Phone: Start: 04-19-2022 Plain x-ray of humerus Start: 04-19-2022 Plain X-ray of shoulder Start: 10-29-2021 Screening mammography Mario Regalado Work Phone: Start: 10-16-2021 Plain x-ray of hand Plan of Treatment Date Care Activity Detail Author Start: 09-11-2024 Urine culture Urine Culture [facility] Start: 09-11-2024 [facility] Start: 08-04-2023 [facility] Start: 04-23-2022 End: 06-23-2022 INFLUENZA A&B MOLECULAR (POC) INFLUENZA A&B MOLECULAR (POC) Microbiology Routine Influenza-like illness Expected: 04/23/2022, Expires: 06/23/2022 [facility] Work Phone: Comment on above: Expected: 04/23/2022 , Expires: 06/23/2022 Start: 04-23-2022 End: 05-07-2022 SARS-CoV-2 (COVID-19) RNA [Presence] in Respiratory specimen by ИРИНА with probe detection 2019 CORONAVIRUS Microbiology Routine Influenza-like illness URI with cough and congestion Expected: 04/23/2022, Expires: 05/07/2022 [facility] Work Phone: Comment on above: Expected: 04/23/2022 , Expires: 05/07/2022 Start: 04-11-2022 ADVANCE DIRECTIVE DISCUSSION ADVANCE DIRECTIVE DISCUSSION [facility] Start: 04-11-2022 DEPRESSION ASSESSMENT DEPRESSION ASS ESSMENT [facility] Start: 08-02-2015 BONE DENSITY BONE DENSITY [facility] Start: 08-02-2015 PNEUMOCOCCAL: 65+ (1 - PCV) PNEUMOCOCCAL: 65+ (1 - PCV) [facility] Start: 2000 SHINGRIX VACCINE (1 of 2) SHINGRIX VACCINE (1 of 2) [facility] Start: 08-02-1995 COLOGUARD (FIT-DNA) COLOGUARD (FIT-D NA) [facility] Start: 08-02-[address] [facility] Start: 08-02-1995 COLORECTAL CANCER SCREENING COLORECTAL CANCER SCREENING [facility] Start: 08-02-[address] COLONOGRAPHY [facility] Start: 08-02-1995 DIABETES SCREEN DIABETES SCREEN [facility] Start: 08-02-1995 FECAL OCCULT BLOOD FECAL OCCULT BLOO D [facility] Start: 08-02-1995 LIPID SCREEN LIPID SCREEN [facility] Start: 08-02-1995 SIGMOIDOSCOPY SIGMOIDOSCOPY [facility] Start: [address] [facility] Start: 1969 Urine microalbumin profile DTAP,TDAP,TD (1 - Tdap) [facility] Start: 1968 HEPATITIS C SCREENING HEPATITIS C SC REENING [facility] Alternaria alternata IgE Ab [Units/volume] in Serum [facility] [place] Cockroach I gE Ab [Units/volume] in Serum [facility] [place] house dust mite IgE Ab [Units/volume] in Serum [facility] Aspergillus fumigatu s RAST [facility] Bahia grass IgE Ab [Units/volume] in Serum [facility] Bermuda grass IgE Ab [Units/volume] in Serum [facility] Box elder RAST [facility] Cat dander IgE Ab [Units/volume] in Serum [facility] Cladosporium herbaru m IgE Ab [Units/volume] in Serum [facility] Common Ragweed IgE A b [Units/volume] in Serum [facility] Dog epithelium IgE A b [Units/volume] in Serum [facility] house dust mite IgE Ab [Units/volume] in Serum [facility] Hazelnut Pollen IgE Ab [Units/volume] in Serum [facility] Rolly grass IgE Ab [Units/volume] in Serum [facility] [place] blue grass IgE Ab [Units/volume] in Serum [facility] Mountain Juniper IgE Ab [Units/volume] in Serum [facility] Mucor racemosus IgE Ab [Units/volume] in Serum [facility] Mugwort IgE Ab [Units/volume] in Serum [facility] Garland RAST [facility] Nettle IgE Ab [Units/volume] in Serum [facility] Penicillium notatum IgE Ab [Units/volume] in Serum [facility] Plantain (Bots[place]an) RAST [facility] Rough Pigweed IgE Ab [Units/volume] in Serum [facility] Sheep [place] IgE Ab [Units/volume] in Serum [facility] Stemphylium botryosu m IgE Ab [Units/volume] in Serum [facility] Sweet gum [facility] Tree pollen [facility] White Elm IgE Ab [Units/volume] in Serum [facility] White [place] IgE Ab [Units/volume] in Serum [facility] Verbena IgE Ab [Units/volume] in Serum [facility] Immunizations Immunization Date Immunization Notes Care Provider Trista patterson 01-26-2017 Influenza virus vaccine [facility] Payers Date Payer Category Payer Self-pay [id number] 2022 Medicare [employer] [place] [id number] 2022-Present [phone] [address] [place] [address] [facility] [id number] 2022 Medicare [id number] 2016 Unknown [id number] 2015 Medicare [id number] 2010 Unknown [id number] Unknown [id number] Unknown [id number] Unknown [id number] Unknown [id number] Unknown [id number] Unknown [id number] Unknown [id number] Unknown [id number] Social History Date Type Detail Facility Start: 12-24-2019 End: 12-24-2019 Tobacco smoking status TXIS Unknown if ever smoked [facility] Start: 04-11-2017 None [facility] Start: 04-11-2017 [facility] Start: 04-30-2019 Non-smoker [facility] Start: 1950 Sex Assigned At Female [facility] Start: 12-24-2019 End: 04-23-2022 Tobacco smoking status TXIS Never smoked tobacco [facility] Start: 04-23-2022 Tobacco use and exposure Smokeless tobacco non-user [facility] Start: 04-23-2022 Alcohol intake Lifetime non-d jc (finding) [facility] Start: 1950 Sex Assigned At Not on file [facility] Progress note 04-23-2022 Note Date & Type Note Facility 04-23-2022 Note HNO ID: [id number] Author: Jena Moss APRN.MIDDLEWARE ADMINISTRATOR Service: ? Author Type: Nurse Practitioner Type: Progress Notes Filed: 04/23/2022 7:29 PM Note Text: Subjective The history is provided by the patient. No concrete grinder operator was used. KINGSLEY Valentino is a 71 year old female who presents today for CC of cough, congestion, sore throat, sinus congestion for one day. She has used mucinex, and comtrex without relief Exposure to grandchildren that are ill, no known covid or flu. H/o asthma Pulse 112 Temp 37.3 ?C (99.2 ?F) (Tympanic) Resp 18 Wt 82.1 kg (181 lb) SpO2 96% Social History Tobacco Use Smoking status: Never Smokeless tobacco: Never Substance Use Topics Alcohol use: Never Drug use: Never No past medical history on file. I have confirmed and edited as necessary, the [facility] Review of Systems Constitutional: Positive for chills, fever and malaise/fatigue. HENT: Positive for congestion and sinus pain. Negative for ear pain and sore throat. Respiratory: Positive for cough. Negative for sputum production, shortness of breath and wheezing. Cardiovascular: Negative for chest pain. Gastrointestinal: Negative for abdominal pain, diarrhea, nausea and vomiting. Musculoskeletal: Positive for myalgias. Neurological: Negative for headaches. Objective Physical Exam Vitals and nursing note reviewed. HENT: Head: Normocephalic and atraumatic. Right Ear: Tympanic membrane, ear canal and external ear normal. Left Ear: Tympanic membrane, ear canal and external ear normal. Nose: Mucosal edema, congestion and rhinorrhea present. Right Sinus: No maxillary sinus tenderness or frontal sinus tenderness. Left Sinus: No maxillary sinus tenderness or frontal sinus tenderness. Mouth/Throat: Pharynx: Uvula midline. Posterior oropharyngeal erythema present. No oropharyngeal exudate. Cardiovascular: Rate and Rhythm: Normal rate and regular rhythm. Heart sounds: Normal heart sounds. Pulmonary: Effort: Pulmonary effort is normal. Breath sounds: Normal breath sounds. Lymphadenopathy: Head: Right side of head: No submental, submandibular or tonsillar adenopathy. Left side of head: No submental, submandibular or tonsillar adenopathy. Cervical: No cervical adenopathy. Skin: General: Skin is warm and dry. Neurological: Mental Status: She is alert. Psychiatric: Mood and Affect: Affect normal. ASSESSMENT/PLAN: 1. Throat pain - ICD9: 784.1, ICD10: R07.0 (primary diagnosis) Negative for strep Tylenol/ibuprofen Warm salt water gargles, honey, warm beverages - STREP A MOLECULAR (POC) 2. Influenza-like illness - ICD9: 487.1, ICD10: J11.1 Rapid flu is negative Covid testing sent. Home isolation Testing ordered Comfort measures discussed - see patient instructions. When to seek higher level of care Notified in 12-24 hours with results, available on [employer] - INFLUENZA AANDB MOLECULAR (POC) - 2019 CORONAVIRUS 3. URI with cough and congestion - ICD9: 465.9, ICD10: J06.9 - Discussed viral etiology and rationale for treatment. - Symptomatic treatment with prn analgesia - Supportive care with fluids and rest - Tessalon Perls - If covid negative will start prednisone if notices increased wheezing. - 2019 CORONAVIRUS Diagnosis and treatment plan were discussed and questions were answered to the patient's satisfaction. Pt acknowledged understanding of concepts and follow up plan. Specific signs and symptoms that would indicate the need for higher level of care were discussed in detail warranting prompt ER evaluation. Jena Moss APRN.CNP [facility] Instructions 04-23-2022 Patient Instructions Note Date & Type Note Facility 04-23-2022 Instructions Jena Moss APRN.CNP - 04/23/2022 7:17 PM EST Strep is negative Flu is negative covid test ordered You will be notified in 12-24 hours Home isolation until results are back Rest, increase water intake Motrin or Tylenol as needed for fever or pain. Salt water gargles, chloraseptic spray or lozenges as needed for sore throat. Warm beverages, honey. Nasal saline spray as needed Cool mist humidifier at night Tylenol (generic acetaminophen) 500 mg-2 tabs every 8 hrs. as needed for fever and aches Ibuprofen 600 mg (3-200mg tablets) every 6 hours -Mucinex (generic is fine) Guaifenesin 1200 mg twice daily to help with cough and to thin out mucus Use prescribed inhalers as ordered Start Prednisone if covid is negative * Seek medical care immediately, call 911, go to ER if you have chest pain, difficulty breathing, shortness of breath, inability to swallow. documented in this encounter [facility] History of Present illness Narrative 04-23-2022 Jena Moss APRN.CNP - 04/23/2022 7:04 PM EST Note Date & Type Note Facility 04-23-2022 History of Presen t illness Narrative Subjective The history is provided by the patient. No concrete grinder operator was used. HPI Quinton Valentino is a 71 year old female who presents today for CC of cough, congestion, sore throat, sinus congestion for one day. She has used mucinex, and comtrex without relief Exposure to grandchildren that are ill, no known covid or flu. H/o asthma Pulse 112 Temp 37.3 C (99.2 F) (Tympanic) Resp 18 Wt 82.1 kg (181 lb) SpO2 96% Social History Tobacco Use Smoking status: Never Smokeless tobacco: Never Substance Use Topics Alcohol use: Never Drug use: Never No past medical history on file. I have confirmed and edited as necessary, the [facility] Review of Systems Constitutional: Positive for chills, fever and malaise/fatigue. HENT: Positive for congestion and sinus pain. Negative for ear pain and sore throat. Respiratory: Positive for cough. Negative for sputum production, shortness of breath and wheezing. Cardiovascular: Negative for chest pain. Gastrointestinal: Negative for abdominal pain, diarrhea, nausea and vomiting. Musculoskeletal: Positive for myalgias. Neurological: Negative for headaches. Objective Physical Exam Vitals and nursing note reviewed. HENT: Head: Normocephalic and atraumatic. Right Ear: Tympanic membrane, ear canal and external ear normal. Left Ear: Tympanic membrane, ear canal and external ear normal. Nose: Mucosal edema, congestion and rhinorrhea present. Right Sinus: No maxillary sinus tenderness or frontal sinus tenderness. Left Sinus: No maxillary sinus tenderness or frontal sinus tenderness. Mouth/Throat: Pharynx: Uvula midline. Posterior oropharyngeal erythema present. No oropharyngeal exudate. Cardiovascular: Rate and Rhythm: Normal rate and regular rhythm. Heart sounds: Normal heart sounds. Pulmonary: Effort: Pulmonary effort is normal. Breath sounds: Normal breath sounds. Lymphadenopathy: Head: Right side of head: No submental, submandibular or tonsillar adenopathy. Left side of head: No submental, submandibular or tonsillar adenopathy. Cervical: No cervical adenopathy. Skin: General: Skin is warm and dry. Neurological: Mental Status: She is alert. Psychiatric: Mood and Affect: Affect normal. ASSESSMENT/PLAN: 1. Throat pain - ICD9: 784.1, ICD10: R07.0 (primary diagnosis) Negative for strep Tylenol/ibuprofen Warm salt water gargles, honey, warm beverages - STREP A MOLECULAR (POC) 2. Influenza-like illness - ICD9: 487.1, ICD10: J11.1 Rapid flu is negative Covid testing sent. Home isolation Testing ordered Comfort measures discussed - see patient instructions. When to seek higher level of care Notified in 12-24 hours with results, available on [employer] - INFLUENZA A&B MOLECULAR (POC) - 2019 CORONAVIRUS 3. URI with cough and congestion - ICD9: 465.9, ICD10: J06.9 - Discussed viral etiology and rationale for treatment. - Symptomatic treatment with prn analgesia - Supportive care with fluids and rest - Tessalon Perls - If covid negative will start prednisone if notices increased wheezing. - 2019 CORONAVIRUS Diagnosis and treatment plan were discussed and questions were answered to the patient's satisfaction. Pt acknowledged understanding of concepts and follow up plan. Specific signs and symptoms that would indicate the need for higher level of care were discussed in detail warranting prompt ER evaluation. Jena Moss APRN.CNP documented in this encounter [facility] Evaluation note Note Date & Type Note Facility Evaluation note No assessment information availa [facility] Work Phone: Evaluation note Note Date & Type Note Facility Evaluation note Diagnosis Throat pain- Primary Influenza-like illness Influenza with other respiratory manifestations URI with cough and congestion documented in this encounter [facility] Reason for referral (narrative) Note Date & Type Note Facility Reason for referral (narrative) No reason for referral information available [facility] Work Phone: Chief Complaint and Reason for Visit Chief Complaint LABS AND XRAY- PAIN IN HAND Chief Complaint LABS AND XRAY- PAIN IN HAND Amaurosis fugax / Unspecified subjective visual di Chief Complaint LABS AND XRAY- PAIN IN HAND Amaurosis fugax / Unspecified subjective visual di SCREENING Chief Complaint LT ARM PAIN. RX HERE Chief Complaint NEED ORDER Chief Complaint NEED ORDER SCREENING Advance Directives No Advanced Directives Records Found Advance Directive Response Recorded Date/ Time Living Will No April 30 10:59am Power of Dyed Raw Stock Blower Feeder No April 30, 2019 10:59am Advance Directive Response Recorded Date/ Time Living Will No April 30 9:59am Power of Dyed Raw Stock Blower Feeder No April 30, 2019 9:59am Health Concerns Infection Onset Date Last Indicated Resolved Time COVID-19 Rule-Out 04/23/2022 04/23/2022 Summary Purpose Family History No Family History Records Found Additional Source Comments Goals (unrecognized section and content) Goals may be documented in a n alternate sectionGoals may be documented in an alternate sectionGoals may be documented in an alternate sectionGoals may be documented in an alternate sectionGoals may be documented in an alternate sectionGoals may be documented in an alternate sectionGoals may be documented in an alternate sectionGoals may be documented in an alternate sectionGoals may be documented in an alternate sectionGoals may be documented in an alternate sectionGoals may be documented in an alternate section Source Comments (unrecognize d section and content) In the event this informatio n is protected by the Federal Confidentiality of Alcohol and Drug Abuse Patient Records regulations: The Federal rules restrict any use of the information to criminally investigate or prosecute any alcohol or drug abuse patient.[facility] Reason for Visit (unrecogniz ed section and content) Reason Comments Chest Congestion Pt reported throat p ain, nasal congestion x1 day, cough. INFORMATION SOURCE (unrecogn ized section and content) DATE CREATED AUTHOR 04/24/2022 [facility] DATE CREATED AUTHOR AUTHOR'S ORGANIZ ATION 11/07/2024 [facility] Care Teams (unrecognized sec tion and content) Team Status: Active Member Role Status Dates Dr. Neal Regalado MD Family Provider Active Dr. Neal Regalado MD Primary Care Provider Active Team Status: Inactive Member Role Status Dates Dr. Neal Regalado MD Primary Care Provi elizabeth, Attending Provider, Referring Provider Active Team Status: Active Member Role Status Dates Dr. Neal Regalado MD Primary Care Provi elizabeth, Attending Provider, Referring Provider Active Team Status: Inactive Member Role Status Dates Dr. Neal Regalado MD Primary Care Provider Active Start: May 31, 2024 End: May 31, 2024 Dr. Neal Regalado MD Attending Provider Active Start: May 31, 2024 End: May 31, 2024 Dr. Neal Regalado MD Referring Provider Active Start: May 31, 2024 End: May 31, 2024 Team Status: Inactive Member Role Status Dates Dr. Neal Regalado MD Primary Care Provider Active Start: September 11, 2024 End: September 11, 2024 Dr. Neal Regalado MD Attending Provider Active Start: September 11, 2024 End: September 11, 2024 Dr. Neal Regalado MD Referring Provider Active Start: September 11, 2024 End: September 11, 2024 Team Status: Active Member Role/Relationship Status Dates Dr. Neal Regalado MD Primary Care Provider Active Team Status: Inactive Member Role/Relationship Status Dates Dr. Neal Regalado MD Primary Care Provider Active Start: September 11, 2024 End: September 11, 2024 Dr. Neal Regalado MD Attending Provider Active Start: September 11, 2024 End: September 11, 2024 Dr. Neal Regalado MD Referring Provider Active Start: September 11, 2024 End: September 11, 2024 Team Status: Inactive Member Role/Relationship Status Dates Dr. Neal Regalado MD Primary Care Provider Active Start: October 22, 2024 End: October 22, 2024 Dr. Neal Regalado MD Attending Provider Active Start: October 22, 2024 End: October 22, 2024 Dr. Neal Regalado MD Referring Provider Active Start: October 22, 2024 End: October 22, 2024 FOR RECORDS PERTAINING TO PATIENTS WHO ARE OR HAVE BEEN ENROLLED IN A CHEMICAL DEPENDENCY/SUBSTANCEABUSE PROGRAM, SOME INFORMATION MAY BE OMITTED. This clinical summary was aggregated from multiple sources. Caution should be exercised in using it in the provision of clinical care. This summary normalizes information from multiple sources, and as a consequence, information in this document may materially change the coding, format and clinical context of patient data. In addition, data may be omitted in some cases. CLINICAL DECISIONS SHOULD BE BASED ON THE PRIMARY CLINICAL RECORDS. [facility] [employer] [facility]. provides no warranty or guarantee of the accuracy or completeness of information in this document.
== END | disposition home or self-care (01) ==
PROVIDERS: PCP Family Medicine; Referring Provider Family Medicine; Visit Provider Family Medicine
DX: Z12.31 Encounter for screening mammogram for malignant neoplasm of breast (principal)
CPT/HCPCS: 77063; 77067

== ENCOUNTER → 2024-12-19 | Outpatient (CLI) | payer MEDICARE, SELFPAY ==
--- NOTE | 2024-12-19 13:42 | CT_ITS ---
PROCEDURE: CT ABD/PELVIS W/WO CONTRAST 12/19/2024 REASON FOR EXAM: DYSURIA/FREQUENCY/MICRO HEMATURIA TECHNIQUE: Procedure Code: [id number] Modality: CT Procedure: CT ABD/PELVIS W/WO CONTRAST Coronal and Sagittal reconstruction series were provided. CONTRAST: Isovue-300 VOLUME: 98 mL One or more dose reduction techniques were used (e.g., Automated exposure control, adjustment of the mA and/or kV according to patient size, use of iterative reconstruction technique. RADIATION DOSE SUMMARY: DLP: 3103.89 mGycm COMPARISON: None available. FINDINGS: Lung bases: Clear. Liver: Within normal limits. Subcentimeter circumscribed benign-appearing cyst in the anterior left hepatic lobe. No suspicious focal lesion. Gallbladder: Unremarkable. No biliary ductal dilatation. Spleen: Normal size and morphology. Pancreas: Unremarkable. Adrenals: Unremarkable. Kidneys/Bladder: Normal, symmetric renal nephrograms. No mass lesion, urolithiasis or hydronephrosis. Urinary bladder is underdistended, possibly with mild circumferential bladder wall thickening which may be related to cystitis. Delayed postcontrast imaging demonstrates normal symmetric excretion of IV contrast from the bilateral renal collecting systems into the urinary bladder without obstruction. Reproductive Organs: Multiple small degenerative calcified uterine fibroids. Small 2.1 cm simple appearing left ovarian cyst. Unremarkable right ovary. Bowel: Small hiatal hernia. Otherwise unremarkable stomach and small bowel. No evidence of obstruction or active inflammatory process. Normal appendix. Mild distal colonic diverticulosis without evidence for active diverticulitis/colitis. Lymph nodes: No enlarged abdominopelvic lymph nodes. Vasculature: Normal caliber abdominal aorta and IVC. Mild atherosclerotic disease. Peritoneum / Retroperitoneum: No ascites or free air. Bones: Mild degenerative changes of the spine. Chronic anterior wedge compression deformity of the T11 vertebral body, and minimal grade 1 degenerative anterolisthesis of L4 on L5. CT/CT Abd/Pelvis W/WO Contrast IMPRESSION: 1. Urinary bladder wall thickening; correlate clinically for possible cystitis. 2. Normal appearance of the kidneys. No renal mass, urolithiasis or hydronephro sis. 3. Multiple small calcified degenerative uterine fibroids. 4. Small 2.1 cm simple left ovarian cyst; no follow-up indicated. Reading Location: [facility]
--- OUTSIDE RECORDS SUMMARY | 2024-12-19 21:20 | XMS RPT_ITS | CCD ---
Author Organization [facility] Care Team Providers Care Safety Instruction Police Officer Name Role Phone Dr. Neal Regalado Primary Care Provider Dr. Billy Aguilera Attending Provider [phone] Unavailable Primary Care Provider Unavaildiego Regalado MD, Dr. De Jesus Primary Care Provider Fabricio BRINK, Dr. De Jesus Attending Provider [phone] Fabricio BRINK, Dr. De Jesus Referring Provider Fabricio BRINK, Dr. De Jesus Primary Care Provider Fabricio BRINK, Dr. De Jesus Attending Provider Fabricio BRINK, Dr. De Jesus Referring Provider [phone] Neal Regalado Primary Care Unavailable Regalado, Neal Referring Unavailable Regalado, Neal Attending Unavailable Regalado, Neal Referring Unavailable Regalado, Neal Attending Unavailable Regalado, Neal Primary Care Unavailable Regalado, Neal Referring Unavailable Regalado, Neal Attending Unavailable Regalado, Neal Primary Care Unavailable Regalado, Neal Primary Care Unavailable Regalado, Neal Referring Unavailable Regalado, Neal Attending Unavailable Angel, Presley Sanchez Referring Unavailable Angel, Presley Sanchez Attending Unavailable Regalado, Neal Primary Care Unavailable Regalado, Neal Primary Care Unavailable Regalado, Neal Referring Unavailable Regalado, Neal Attending Unavailable Regalado, Neal Primary Care Unavailable Regalado, Neal Referring Unavailable Regalado, Neal Attending Unavailable Regalado, Neal Primary Care Unavailable Regalado, Neal Referring Unavailable Regalado, Neal Attending Unavailable Allergies Allergy Classification Reported Allergen(s) Allergy Type Date of Onset Reaction(s) Facility (13 sources) Menthol Drug Allergy 0 Rash [facility] (1 source) Escitalopram Drug Allergy 3 Other: See Comments [facility] (1 source) Menthol Drug Allergy 0 [facility] Repository Medications Current Medications Medication Drug Class(es) Dates Sig (Normalized) Sig (Original) acetaminophen 500 mg oral tablet (12 sources) Start: 04-30-2019 take 500-1000 mg by mouth every six hours as needed for pain Acetaminophen 500 MG tablet Active 500 - 1000 mg PO EVERY 6 HOURS NEEDED as needed for Pain Or Fever April 30, 2019 1:00am cholecalciferol 0.125 mg oral capsule (13 sources) Vitamin D Start: 04-10-2017 take 1 [...] Comment on above: Take 2 tablets by [facility] once daily for 5 days. propranolol hydrochloride 40 mg oral tablet (13 sources) beta-Adrenergic Sara Start: 04-10-2017 take 1 tablet by mouth once daily Propranolol 40 MG tablet Active 40 mg PO DAILY April 10, 2017 1:00am tremors Completed/Discontinued Medications Medication Drug Class(es) Dates Sig (Normalized) Sig (Original) acetaminophen 325 mg / HYDROcodone bitartrate 5 mg oral tablet (12 sources) Opioid Agonist Start: 05-01-2019 End: 05-06-2019 [...] May 01, 2019 May 06, 2019 1:08am [id number] 200 actuat albuterol 0.09 mg/actuat metered dose inhaler (13 sources) beta2-Adrenergic Agonist Start: 04-30-2019 albut garrett [...] Problem Date Documented Date Episodic/Chronic Essential hypertension (13 sources) Benign hypertension; Translations: [Essential (primary) hypertension] Onset: 10-25-2024 05-20-2017 Chronic Genitourinary symptoms and ill-defined conditions (3 sources) Asymptomatic microscopic hematuria; Translations: [Other symptoms and signs involving the genitourinary system] Onset: 06-11-2024 Episodic Influenza (1 source) Influenza-like illness; Translations: [Influenza due to unidentified influenza virus with other respiratory manifestations] Episodic Intestinal obstruction without hernia (12 sources) Partial obstruction of small bowel; Translations: [Partial intestinal obstruction, unspecified as to cause] 05-20-2017 Episodic Melanomas of skin (12 sources) Malignant melanoma; Translations: [Malignant melanoma of skin, unspecified] 05-20-2017 Chronic Other screening for suspected conditions (not mental disorders or infectious disease) (12 sources) Computed tomography result abnormal; Translations: [Abnormal findings on diagnostic imaging of other specified body structures] 05-01-2019 Chronic Other screening for suspected conditions (not mental disorders or infectious disease) (1 source) Encounter for screening mammogram for malignant neoplasm of breast; Translations: [Encounter for screening mammogram for malignant neoplasm of breast] Onset: 11-20-2024 Episodic Other upper respiratory disease (1 source) [...] Test Name Value Interpretation Reference Range Facility Breast imaging reportOrdered By: Galina Muñoz on 11-12-2024 Study report [facility] Imaging Services [address] [place] [address] SCRN MAMM (CAD)W/ARASH BILAT MR#: [id number] Acct: [id number] Name: QUINTON VALENTINO Rep #: [id number] : 1950 F 74 From: Moses Muñoz DO PCP: Dr. Neal Regalado MD Status: [facility] Study:SCRN MAMM (CAD)W/ARASH BILAT Date of Exa m: 11/12/24 Exam# [id number] Ordering Dr: Neal Regalado MD EXAM: SCRN MAMM (CAD)W/ARASH BILAT DATE: 11/12/2024 CLINICAL HISTORY: F, Age 74 y/o , SCREENING TECHNIQUE: SCRN MAMM (CAD)W/ARASH BILAT COMPARISON: Prior exam(s) dated 11/09/2023 and 11/02/2022. FINDINGS: TISSUE DENSITY: There are scattered areas of fibroglandular density. Bilateral Breast Mammographic Findings: Benign-appearing round macrocalcifications and microcalcifications are seen in breast. No suspicious masses, suspicious cluster of microcalcifications, architectural distortion or secondary sign of malignancyis identified in either breast. There is a 12 mm partially obscured isodense mass in the superior, slightly outer, far posterior aspect of the right breast with associated benign-appearing macrocalcifications and round microcalcifications. This is most compatible with a degenerating fibroadenoma. Due to the far posterior location of the mass, it is not entirely included on this study. BI/SCRN MAMM (CAD)W/ARASH BILAT IMPRESSION: Benign screening mammogram. OVERALL FINAL ASSESSMENT BI-RADS 2: BENIGN RECOMMENDATION: Routine annual follow-up in 1 Year A letter with findings and recommendations will be mailed to the patient. Reading Location: [id number] CC: Dr. Neal Regalado MD ~ Curriculum And Assessment Director: Signed [facility] SCRN MAMM (CAD)W/ARASH BILATo n 11-12-2024 SCRN MAMM (CAD)W/ARASH BILAT [facility] Imaging Services [address] [place] [address] SCRN MAMM (CAD)W/ARASH BILAT MR#: [id number] Acct: [id number] Name: QUINTON VALENTINO Rep #: [id number] : 1950 F 74 From: Galina Martin O PCP: Dr. Neal Regalado MD Status: [facility] Study: SCRN MAMM (CAD)W/ARASH BILAT Date of Exam: 08/03 Exam# [id number] Ordering Dr: Neal Regalado MD EXAM: SCRN MAMM (CAD)W/ARASH BILAT DATE: 11/12/2024 CLINICAL HISTORY: F, Age 74 y/o , SCREENING TECHNIQUE: SCRN MAMM (CAD)W/ARASH BILAT COMPARISON: Prior exam(s) dated 11/09/2023 and 11/02/2022. FINDINGS: TISSUE DENSITY: There are scattered areas of fibroglandular density. Bilateral Breast Mammographic Findings: Benign-appearing round macrocalcifications and microcalcifications are seen in breast. No suspicious masses, suspicious cluster of microcalcifications, architectural distortion or secondary sign of malignancy is identified in either breast. There is a 12 mm partially obscured isodense mass in the superior, slightly outer, far posterior aspect of the right breast with associated benign-appearing macrocalcifications and round microcalcifications. This is most compatible with a degenerating fibroadenoma. Due to the far posterior location of the mass, it is not entirely included on this study. BI/SCRN MAMM (CAD)W/ARASH BILAT IMPRESSION: Benign screening mammogram. OVERALL FINAL ASSESSMENT BI-RADS 2: BENIGN RECOMMENDATION: Routine annual follow-up in 1 Year A letter with findings and recommendations will be mailed to the patient. Reading Location: [id number] CC: Dr. Neal Regalado MD Curriculum And Assessment Director: Signed Normal [facility] Anion gap in Serum or Plasma Ordered By: Neal Regalado on 10-22-2024 Anion gap [Moles/Vol] 10 mmol/L 5-15 [facility] BUN/creatinine ratioOrdered By: Neal Regalado on 10-22-2024 Urea nitrogen/Creatinine [Mass ratio] 21.2 mg/mg High 10-20 [facility] Basic Metabolic Profile (BMP )on 10-22-2024 BUN/CRE 21.2 RATIO High 10-20 [facility] Comment on above: Performed By: #### L 500.2500 #### [facility] [address] [place], [address] Calcium [Mass/Vol] 9.7 mg/dL Normal 7.6-11.0 [facility] Comment on above: Performed By: #### L 500.2500 #### [facility] [address] [place], [address] Chloride [Moles/Vol] 105 mmol/L Normal 98-108 [facility] Comment on above: Performed By: #### L 500.2500 #### [facility] [address] [place], [address] CO2 [Moles/Vol] 27.0 mmol/L Normal 21.0-32.0 [facility] Comment on above: Performed By: #### L 500.2500 #### [facility] [address] [place], [address] Creatinine [Mass/Vol] 0.69 mg/dL Low 0.70-1.20 [facility] Comment on above: Performed By: #### L 500.2500 #### [facility] [address] [place], [address] GAP 10 Normal 5-15 [facility] Comment on above: Performed By: #### L 500.2500 #### [facility] [address] [place], [address] GFR/1.73 sq M.predicted among non-blacks MDRD (S/P/Bld) [Vol rate/Area] 91 mL/min/{1.73_m2} Normal >60 [facility] Comment on above: Result Comment: mL/m in/1.73m2 CKD-EPI Creatinine Equation (2020) Performed By: #### L 500.2500 #### [facility] [address] [place], [address] Glucose [Mass/Vol] 87 mg/dL Normal 70-99 [facility] Comment on above: Performed By: #### L 500.2500 #### [facility] [address] [place], [address] Potassium [Moles/Vol] 4.0 mmol/L Normal 3.3-5.1 [facility] Comment on above: Performed By: #### L 500.2500 #### [facility] [address] [place], [address] Sodium [Moles/Vol] 143 mmol/L Normal 133-145 [facility] Comment on above: Performed By: #### L 500.2500 #### [facility] [address] [place], [address] Urea nitrogen [Mass/Vol] 15 mg/dL Normal 4-19 [facility] Comment on above: Performed By: #### L 500.2500 #### [facility] [place], [address] Carbon dioxide, total [Moles /volume] in Central venous bloodOrdered By: Neal Regalado on 10-22-2024 CO2 [Moles/Vol] 27.0 mmol/L 21.0-32.0 [facility] Chloride assayOrdered By: Florian Regalado on 10-22-2024 Chloride [Moles/Vol] 105 mmol/L 98-108 [facility] Glomerular filtration rate ( GFR) estimation/1.73 sq m using serum, plasma, or whole bOrdered By: Neal Regalado on 10-22-2024 GFR/1.73 sq M.predicted among non-blacks MDRD (S/P/Bld) [Vol rate/Area] 91 mL/min/{1.73_m2} >60 [facility] Comment on above: mL/min/1.73m2 CKD-EP I Creatinine Equation (2020) Potassium measurement (mass/ volume)Ordered By: Neal Regalado on 10-22-2024 Potassium (Unsp spec) [Mass/Vol] 4.0 mmol/L 3.3-5.1 [facility] Serum creatinine measurement (mass/volume)Ordered By: Neal Regalado on 10-22-2024 Creatinine [Mass/Vol] 0.69 mg/dL Low 0.70-1.20 [facility] Serum glucose measurement (m ass/volume)Ordered By: Neal Regalado on 10-22-2024 Glucose [Mass/Vol] 87 mg/dL 70-99 [facility] Serum or plasma calcium jeremías urement (mass/volume)Ordered By: Neal Regalado on 10-22-2024 Calcium [Mass/Vol] 9.7 mg/dL 7.6-11.0 [facility] Serum or plasma urea nitroge n measurement (mass/volume)Ordered By: Neal Regalado on 10-22-2024 Urea nitrogen [Mass/Vol] 15 mg/dL - [facility] Sodium levelOrdered By: Neal Regalado on 10-22-2024 Sodium [Moles/Vol] 143 mmol/L 133-145 [facility] Urine Cultureon 09-14-2024 [facility] Escherichia coli [place] Count >100,000 Morganella morganii sp morgani Morganella [...] TMP SMX Islt TRAN <=20 S Normal [facility] Comment on above: Performed By: #### M 100.2200 #### [facility] [address] [place], [place], [id number] Urine cultureOrdered By: Kathy Regalado on 09-11-2024 Bacteria identified Cx Nom (U) Escherichia coli Abnormal [facility] Bacteria identified Cx Nom (U) Morganella morganii sp morgani Abnormal [facility] Urine Cultureon 06-02-2024 [facility] Mixed Gram Pos Gram Neg Org [place] Count 11,000-25,000 MIXC Mixed contaminants. Submit a new specimen if indicated. Normal [facility] Comment on above: Performed By: #### M 100.2200 #### [facility] [address] [place], [place], [id number] Urine cultureOrdered By: Kathy Regalado on 05-31-2024 Bacteria identified Cx Nom (U) Mixed Gram Pos & Gram Neg Org Abnormal [facility] Basic Metabolic Profile (BMP )on 04-26-2024 BUN/CRE 20.6 RATIO High 10-20 [facility] Comment on above: Performed By: #### L 500.2500, L500.4100 #### [facility] [address] [place], [address] CA,Total 9.9 mg/dL Normal 8.5-10.1 [facility] Comment on above: Performed By: #### L 500.2500, L500.4100 #### [facility] [address] [place], [address] Chloride [Moles/Vol] 106 mmol/L Normal 98-107 [facility] Comment on above: Performed By: #### L 500.2500, L500.4100 #### [facility] [address] [place], [address] CO2 [Moles/Vol] 30.0 mmol/L Normal 21.0-32.0 [facility] Comment on above: Performed By: #### L 500.2500, L500.4100 #### [facility] [address] [place], [address] Creatinine [Mass/Vol] 0.68 mg/dL Normal 0.55-1.02 [facility] Comment on above: Result Comment: The validity of the calculated GFR GFRAA in patients over 70 years has not been determined. Clinical correlation is essential. Performed By: #### L 500.2500, L500.4100 #### [facility] [address] [place], [address] EST GFR - AA 109 mL/min Normal >60 [facility] Comment on above: Result Comment: Afri can [place] GFR Calc Performed By: #### L 500.2500, L500.4100 #### [facility] [address] [place], [address] GAP 5 Normal 5-15 [facility] Comment on above: Performed By: #### L 500.2500, L500.4100 #### [place] [facility] [address] [place], [address] GFR/1.73 sq M.predicted among non-blacks MDRD (S/P/Bld) [Vol rate/Area] 90 mL/min/{1.73_m2} Normal >60 [facility] Comment on above: Result Comment: Non- GFR Calc Performed By: #### L 500.2500, L500.4100 #### [facility] [address] [place], [address] Glucose [Mass/Vol] 94 mg/dL Normal 74-106 [facility] Comment on above: Performed By: #### L 500.2500, L500.4100 #### [facility] [address] [place], [address] Potassium [Moles/Vol] 4.2 mmol/L Normal 3.5-5.1 [facility] Comment on above: Performed By: #### L 500.2500, L500.4100 #### [facility] [address] [place], [address] Sodium [Moles/Vol] 141 mmol/L Normal 136-145 [facility] Comment on above: Performed By: #### L 500.2500, L500.4100 #### [facility] [address] [place], [address] Urea nitrogen [Mass/Vol] 14 mg/dL Normal 7-18 [facility] Comment on above: Performed By: #### L 500.2500, L500.4100 #### [facility] [address] [place], [address] Lipid Profileon 04-26-2024 Cholesterol [Mass/Vol] 187 mg/dL Normal 200 [facility] Comment on above: Result Comment: <200 mg/dL Desirable 200-240 mg/dL Borderline >240 mg/dL High Risk Performed By: #### L 500.2500, L500.4100 #### [facility] [address] [place], [address] Cholesterol in HDL [Mass/Vol] 58 mg/dL Normal [facility] Comment on above: Result Comment: The drugs N-Acetylcysteine and Metamizole may falsely depress this assay. Reference Range HDL <40 mg/dL Low HDL Cholesterol HDL >or= 60 mg/dL High HDL Cholesterol Performed By: #### L 500.2500, L500.4100 #### [facility] [address] [place], [address] Cholesterol in LDL [Mass/Vol] 104 mg/dL Normal 0-130 [facility] Comment on above: Performed By: #### L 500.2500, L500.4100 #### [facility] [address] [place], [address] Cholesterol in VLDL [Mass/Vol] 25 mg/dL Normal 5-40 [facility] Comment on above: Performed By: #### L 500.2500, L500.4100 #### [facility] [address] [place], [address] Triglyceride [Mass/Vol] 125 mg/dL Normal [facility] Comment on above: Result Comment: The drugs N-Acetylcysteine and Metamizole may falsely depress this assay. Serum Triglycerides Reference Interval Normal <150 mg/dL Borderline high 150 - 199 mg/dL High 200 - 499 mg/dL Very High > or = 500 mg/dL Performed By: #### L 500.2500, L500.4100 #### [facility] [address] [place], [address] L/S Spine Min 4 Viewson 12-11 L/S Spine Min 4 Views [facility] Imaging Services [address] [place] [address] L/S Spine Min 4 Views MR#: [id number] Acct: [id number] Name: QUINTON VALENTINO Rep #: [id number] : 1950 F 73 From: Oz Matos MD PCP: Dr. Neal Regalado MD Status: REG CLI Study: L/S Spine Min 4 Views Date of Exam: 01/06/24 Exam# [id number] Ordering [place]: [place] [id number] STUDY: X-RAY - LUMBAR SPINE REASON FOR [...] Signed: Oz Matos MD at 16:25 EDT , CC: Dr. Neal Regalado MD Curriculum And Assessment Director: Signed Normal [facility] Basophil percentageOrdered B y: Neal Regalado on 10-04-2022 Chloride [Moles/Vol] 107 mmol/L 98-107 [facility] Cholesterol [Mass/Vol] 143 mg/dL <200 [facility] Comment on above: <200 mg/dL Desirable 200-240 mg/dL Borderline >240 mg/dL High Risk Glucose [Mass/Vol] 93 mg/dL 74-106 [facility] Potassium [Moles/Vol] 4.1 mmol/L 3.5-5.1 [facility] Sodium [Moles/Vol] 141 mmol/L 136-145 [facility] Triglyceride [Mass/Vol] 94 mg/dL <199 [facility] Comment on above: The drugs N-Acetylcy steine and Metamizole may falsely depress this assay.Serum Triglycerides Reference Interval Normal <150 mg/dL Borderline high 150 - 199 mg/dL High 200 - 499 mg/dL Very High > or = 500 mg/dL Laboratory - Chemistry and C hemistry - challengeOrdered By: Neal Regalado on 10-04-2022 CO2 [Moles/Vol] 31.0 mmol/L 21.0-32.0 [facility] Urea nitrogen/Creatinine [Mass ratio] 14.7 mg/mg 10-20 [facility] No Panel InformationOrdered By: Neal Regalado on 10-04-2022 Estimated GFR (MDRD) Amer 98 mL/min >60 [facility] Comment on above: GFR Calc Estimated GFR (MDRD) Non-Af Amer 81 mL/min >60 [facility] Comment on above: Non- GFR Calc Serum or plasma calcium jeremías urement (mass/volume)Ordered By: Neal Regalado on 10-04-2022 Calcium [Mass/Vol] 9.4 mg/dL 8.5-10.1 [facility] Serum or plasma cholesterol in HDL measurement (mass/volume)Ordered By: Neal Regalado on 10-04-2022 Cholesterol in HDL [Mass/Vol] 49 mg/dL >40 [facility] Comment on above: The drugs N-Acetylcy steine and Metamizole may falsely depress this assay. Reference Range HDL <40 mg/dL Low HDL Cholesterol HDL >or= 60 mg/dL High HDL Cholesterol Serum or plasma cholesterol in VLDL measurement (mass/volume)Ordered By: Neal Regalado on 10-04-2022 Cholesterol in VLDL [Mass/Vol] 19 mg/dL 5-40 [facility] Serum or plasma creatinine m easurement (mass/volume)Ordered By: Neal Regalado on 10-04-2022 Creatinine [Mass/Vol] 0.75 mg/dL 0.55-1.02 [facility] Comment on above: The validity of the calculated GFR & GFRAA in patients over 70 years has not been determined. Clinical correlation is essential. Serum or plasma low density lipoprotein (LDL) cholesterol measurement (mass/volume)Ordered By: Neal Regalado on 10-04-2022 Cholesterol in LDL [Mass/Vol] 75 mg/dL 0-130 [facility] Serum or plasma urea nitroge n measurement (mass/volume)Ordered By: Neal Regalado on 10-04-2022 Urea nitrogen [Mass/Vol] 11 mg/dL 7-18 [facility] Thin prep Papanicolaou smear with manual screeningOrdered By: Neal Regalado on 10-04-2022 Thin prep Papanicolaou smear with manual screening 3 5-15 [facility] CNPNon 04-24-2022 CNPN Telephone ([facility]WSTR) QUINTON VALENTINO ([id number]) 1950 F Date Time Provider Department 04/24/22 [facility]ON[facility] ORTE[facility] During your visit today, we recorded the following information about you: Brigida Barber MA 04/24/2022 1:22 PM Signed ----- Message from Apolonia Ortega APRN.GROUP CIO sent at 04/24/2022 11:32 AM EST ----- [...] Encounter Status:Closed by BRIGIDA BARBER on 04/24/22 [facility] CNOVon 04-23-2022 CNOV Office Visit ([facility] ) QUINTON VALENTINO ([id number]) 1950 F Date Time Provider Department 04/23/22 7:00 PM JENA MOSS [facility] During your visit today, we recorded the following information about you: Temperature Pulse Respiration Weight 99.2 degrees 112/minute 18/minute 82.1 kg Jena Moss APRN.GROUP CIO 04/23/2022 7:29 PM Signed Subjective The history is provided by the patient. No speech language pathologist prn was used. HPI Quinton Valentino is a [...] have confirmed and edited as necessary, the [facility] [place] Review of Systems Constitutional: Positive for chills, [...] in 12-24 hours with results, available on mychart - INFLUENZA AANDB MOLECULAR (POC) - 2019 CORONAVIRUS 3. URI with cough and congestion - ICD9: 465.9, ICD10: J06.9 - Discussed viral etiology and rationale for treatment. - Symptomatic treatment with prn analgesia - Supportive care with fluids and rest - Tessalmanuela Perls - If covid negative will start [...] prompt ER evaluation. Jena Moss APRN.ROOPA Moss APRN.CNP 04/23/2022 7:29 PM Addendum Strep is negative [...] bleeding. MEN (more content not included)... Normal [facility] INFLUENZA A&B MOLECULAR (POC )on 04-23-2022 Flu A (POCT) Negative Negative [facility] Flu B (POCT) Negative Negative [facility] Procedural Control Valid [facility] SARS-CoV-2 RNA Resp Ql ИРИНА+p robeon 04-23-2022 SARS-CoV-2 (COVID-19) RNA ИРИНА+probe Ql (Resp) COVID 19 RESULT: SARS-CoV-2 (Agent of COVID-19) Not Detected by RT-PCR or equivalent method. This test was developed and its performance characteristics determined by [facility]'s [facility]. This test has been authorized by FDA under an Emergency Use Authorization (EUA). This test has been validated in accordance with the FDA's Guidance Document Policy for Diagnostics Testing in Laboratories Certified to Perform High Complexity Testing under CLIA prior to Emergency use Authorization for Coronavirus Disease 2019 during the Public Health Emergency issued on June 09, 2019. Test performed by [facility], [facility], [address] [place] [address]. Normal [facility] Comment on above: Performed By: #### 9 4500-6 #### [facility] CLIA [id number] [address] [place], [place] [address] [address] [place] STREP A MOLECULAR (POC)on Procedural Control Valid [facility] Strep A (POCT) Negative Negative [facility] Basophil percentageon 2021 Chloride [Moles/Vol] 106 mmol/L 98-107 [facility] Work [facility]: Cholesterol [Mass/Vol] 179 mg/dL <200 [facility] Work Phone: Comment on above: <200 mg/dL Desirable 200-240 mg/dL Borderline >240 mg/dL High Risk Glucose [Mass/Vol] 87 mg/dL 74-106 [facility] Work Phone: Potassium [Moles/Vol] 4.1 mmol/L 3.5-5.1 [facility] Work Phone: Sodium [Moles/Vol] 140 mmol/L 136-145 [facility] Work Phone: Triglyceride [Mass/Vol] 144 mg/dL <199 [facility] Work Phone: Comment on above: The drugs N-Acetylcy steine and Metamizole may falsely depress this assay.Serum Triglycerides Reference Interval Normal <150 mg/dL Borderline high 150 - 199 mg/dL High 200 - 499 mg/dL Very High > or = 500 mg/dL Laboratory - Chemistry and C hemistry - challengeon 10-16-2021 CO2 [Moles/Vol] 30.0 mmol/L 21.0-32.0 [facility] Work Phone: Urea nitrogen/Creatinine [Mass ratio] 31.1 mg/mg 10-20 [facility] Work Phone: No Panel Informationon 10-16 Estimated GFR (MDRD) Amer 117 mL/min >60 [facility] Work Phone: Comment on above: GFR Calc Estimated GFR (MDRD) Non-Af Amer 97 mL/min >60 [facility] Work Phone: Comment on above: Non- GFR Calc Serum or plasma calcium jeremías urement (mass/volume)on 10-16-2021 Calcium [Mass/Vol] 9.5 mg/dL 8.5-10.1 [facility] Work Phone: Serum or plasma cholesterol in HDL measurement (mass/volume)on 10-16-2021 Cholesterol in HDL [Mass/Vol] 54 mg/dL >40 [facility] Work Phone: Comment on above: The drugs N-Acetylcy steine and Metamizole may falsely depress this assay. Reference Range HDL <40 mg/dL Low HDL Cholesterol HDL >or= 60 mg/dL High HDL Cholesterol Serum or plasma cholesterol in VLDL measurement (mass/volume)on 10-16-2021 Cholesterol in VLDL [Mass/Vol] 29 mg/dL 5-40 [facility] Work Phone: Serum or plasma creatinine m easurement (mass/volume)on 10-16-2021 Creatinine [Mass/Vol] 0.64 mg/dL 0.55-1.02 [facility] Work Phone: Comment on above: The validity of the calculated GFR & GFRAA in patients over 70 years has not been determined. Clinical correlation is essential. Serum or plasma low density lipoprotein (LDL) cholesterol measurement (mass/volume)on 10-16-2021 Cholesterol in LDL [Mass/Vol] 96 mg/dL 0-130 [facility] Work Phone: Serum or plasma urea nitroge n measurement (mass/volume)on 10-16-2021 Urea nitrogen [Mass/Vol] 20 mg/dL 7-18 [facility] Work Phone: Thin prep Papanicolaou smear with manual screeningon 10-16-2021 Thin prep Papanicolaou smear with manual screening 4 5-15 [facility] Work Phone: Vital Signs Date Time Vital Sign Value Performing Clinician Facility 11-02-2022 09:12-0400 Body height 167.64 cm [facility] 04-23-2022 18:54-0500 Body temperature 99.19 [degF] Jena Isa DETAIL ASSEMBLER[employer] Work Phone: [facility] 04-23-2022 18:54-0500 Body weight 82.1 kg Jena Isa DETAIL ASSEMBLER[employer] Work Phone: [facility] 04-23-2022 18:54-0500 Heart rate 112 /min Jena Isa DETAIL ASSEMBLER[employer] Work Phone: [facility] 04-23-2022 18:54-0500 Respiratory rate 18 /min Jena Isa DETAIL ASSEMBLER[employer] Work Phone: [facility] 04-23-2022 18:54-0500 SaO2% (BldA) [Mass fraction] 96 % Jena Isa DETAIL ASSEMBLER[employer] Work Phone: [facility] Encounters Encounter Date Encounter Type Care Provider Facility Start: 12-19-[address] [facility] lity:[facility] Start: 11-12-2024 End: 11-12-[address] Neal Regalado MD Work Phone: -Outpatient Breast Imaging Start: 11-12-2024 End: 11-12-[address] Neal Regalado MD -Outpatient Breast Imaging Work Phone: Start: 11-12-2024 End: 11-12-2024 ambulatory Neal Regalado Facility:[facility] Start: 10-22-2024 End: 10-22-[address] Neal Regalado MD Work Phone: -Laboratory [facility] Start: 10-22-2024 End: 10-22-[address] Neal Regalado MD -Laboratory [facility] Start: 10-22-2024 End: 10-22-2024 ambulatory Neal Regalado Facility:[facility] Start: 09-11-2024 End: 09-11-[address] Neal Regalado MD Work Phone: [facility] Work Phone: Start: 09-11-2024 End: 09-11-[address] Neal Regalado MD -Laboratory Specimen Work Phone: Start: 09-11-2024 End: 09-11-2024 ambulatory Neal Regalado Facility:[facility] Start: 08-03-2024 ambulatory Neal Regalado Facility:[facility] Start: 05-31-2024 End: 05-31-[address] Neal Regalado MD -Laboratory [facility] Start: 05-31-2024 End: 05-31-2024 ambulatory Neal Regalado Facility:[facility] Start: 04-26-2024 End: 04-26-2024 ambulatory Neal Regalado Facility:[facility] Start: 01-06-2024 End: 01-06-2024 ambulatory Neal Regalado Facility:[facility] Start: 08-04-2023 End: 08-04-2023 ambulatory [facility] Work Phone: Start: 08-04-2023 End: 08-04-2023 [facility]: Start: 11-02-2022 End: 11-02-2022 ambulatory [facility] Work Phone: Start: 11-02-2022 End: 11-02-2022 Patient encounter procedure [facility]-Outpatient Bone Densitometry Work Phone: Start: 10-04-2022 End: 10-04-2022 ambulatory [facility] Work Phone: Start: 10-04-2022 End: 10-04-2022 [facility] Work Phone: Start: 05-20-2022 Registered [facility] Start: 05-12-2022 End: 05-12-2022 ambulatory [facility] Work Phone: Start: 05-12-2022 End: 05-12-2022 [facility] Start: 04-23-2022 End: 04-23-2022 ambulatory Facility:[facility] Start: 04-23-2022 End: 04-23-2022 Patient encounter procedure Jena Moss GROUP CIO Work Phone: [facility] Care Comment on above: Throat pain (Primary Dx); Influenza-like illness; URI with cough and congestion Start: 04-22-2022 Registered [facility] Start: 04-19-2022 End: 04-19-2022 ambulatory [facility] Work Phone: Start: 04-19-2022 End: 04-19-2022 Patient encounter procedure [facility] Start: 10-29-2021 End: 10-29-[address] Neal Regalado Work Phone: [facility]-Outpatient Breast Imaging Start: 10-22-2021 Non-patient / Non-visit Dr. Florian Regalado Work Phone: [facility] Start: 10-22-2021 End: 10-22-[address] Neal Regalado Work Phone: [facility]-Cardiovascular Services Start: 10-16-2021 End: 10-16-2021 [facility] Procedures Date Procedure Procedure Detail Performing Clinician Start: 11-12-2024 Screening mammography Mario Regalado MD Work Phone: Start: 09-11-[address] Neal Regalado MD Work Phone: Start: 05-31-[address] Neal Regalado MD Work Phone: Start: 11-02-2022 Dual energy X-ray absorptiometry Start: 11-02-2022 Screening mammography Start: 05-12-2022 Plain chest X-ray Start: 04-23-2022 INFLUENZA A&B MOLECU LAR (POC) [facility] Provider Start: 04-23-2022 STREP A MOLECULAR (POC) Dahlia Garcia DETAIL ASSEMBLER.[employer] CIO Work Phone: Start: 04-19-2022 Plain x-ray of humerus Start: 04-19-2022 Plain X-ray of shoulder Start: 10-29-2021 Screening mammography Mario Regalado Work Phone: Start: 10-16-2021 Plain x-ray of hand Plan of Treatment Date Care Activity Detail Author Start: 09-11-2024 Urine culture Urine Culture [facility] Start: 09-11-2024 [facility] Start: 08-04-2023 [facility] Start: 04-23-2022 End: 06-23-2022 INFLUENZA A&B MOLECULAR (POC) INFLUENZA A&B MOLECULAR (POC) Microbiology Routine Influenza-like illness Expected: 04/23/2022, Expires: 06/23/[address] [facility] Work Phone: Comment on above: Expected: 04/23/2022 , Expires: 06/23/2022 Start: 04-23-2022 End: 05-07-2022 SARS-CoV-2 (COVID-19) RNA [Presence] in Respiratory specimen by ИРИНА with probe detection 2019 CORONAVIRUS Microbiology Routine Influenza-like illness URI with cough and congestion Expected: 04/23/2022, Expires: 05/07/[address] [facility] Work Phone: Comment on above: Expected: 04/23/2022 , Expires: 05/07/2022 Start: 04-11-2022 ADVANCE DIRECTIVE DISCUSSION ADVANCE DIRECTIVE DISCUSSION [facility] Start: 04-11-2022 DEPRESSION ASSESSMENT DEPRESSION ASS ESSMENT [facility] Start: 08-02-2015 BONE DENSITY BONE DENSITY [facility] Start: 08-02-2015 PNEUMOCOCCAL: 65+ (1 - PCV) PNEUMOCOCCAL: 65+ (1 - PCV) [facility] Start: 2000 SHINGRIX VACCINE (1 of 2) SHINGRIX VACCINE (1 of 2) [facility] Start: 08-02-1995 COLOGUARD (FIT-DNA) COLOGUARD (FIT-D NA) [facility] Start: 08-02-1995 Colonoscopy COLONOSCOPY [facility] Start: 08-02-1995 COLORECTAL CANCER SCREENING COLORECTAL CANCER SCREENING [facility] Start: 08-02-[address] COLONOGRAPHY [facility] Start: 08-02-1995 DIABETES SCREEN DIABETES SCREEN [facility] Start: 08-02-1995 FECAL OCCULT BLOOD FECAL OCCULT BLOO D [facility] Start: 08-02-1995 LIPID SCREEN LIPID SCREEN [facility] Start: 08-02-1995 SIGMOIDOSCOPY SIGMOIDOSCOPY [facility] Start: 1990 Mammography MAMMOGRAM [facility] Start: 1969 Urine microalbumin profile DTAP,TDAP,TD (1 - Tdap) [facility] Start: 1968 HEPATITIS C SCREENING HEPATITIS C SC [facility] Alternaria alternata IgE Ab [Units/volume] in Serum [facility] Liberian Cockroach I gE Ab [Units/volume] in Serum [facility] Liberian house dust mite IgE Ab [Units/volume] in Serum [facility] Aspergillus fumigatu s RAST [facility] Bahia grass IgE Ab [Units/volume] in Serum [facility] Bermuda grass IgE Ab [Units/volume] in Serum [facility] Box elder RAST [facility] Cat dander IgE Ab [Units/volume] in Serum [facility] Cladosporium herbaru m IgE Ab [Units/volume] in Serum [facility] Common Ragweed IgE A b [Units/volume] in Serum [facility] Dog epithelium IgE A b [Units/volume] in Serum [facility] house dust mite IgE Ab [Units/volume] in Serum [facility] Hazelnut Pollen IgE Ab [Units/volume] in Serum [facility] Rolly grass IgE Ab [Units/volume] in Serum [facility] [place] blue grass IgE Ab [Units/volume] in Serum [facility] Mountain Juniper IgE Ab [Units/volume] in Serum [facility] Mucor racemosus IgE Ab [Units/volume] in Serum [facility] Mugwort IgE Ab [Units/volume] in Serum [facility] [place] RAST [facility] Nettle IgE Ab [Units/volume] in Serum [facility] Penicillium notatum IgE Ab [Units/volume] in Serum [facility] Plantain (Citizen Of [place]) RAST [facility] Rough Pigweed IgE Ab [Units/volume] in Serum [facility] Sheep [place] IgE Ab [Units/volume] in Serum [facility] Stemphylium botryosu m IgE Ab [Units/volume] in Serum [facility] Sweet gum [facility] Tree pollen RAST [facility] White [place]m IgE Ab [Units/volume] in Serum [facility] White [place] IgE Ab [Units/volume] in Serum [facility] [place] IgE Ab [Units/volume] in Serum [facility] Immunizations Immunization Date Immunization Notes Care Provider Trista patterson 01-26-2017 Influenza virus vaccine [facility] Payers Date Payer Category Payer Self-pay [id number] 2022 Medicare [employer] [place] [place] [id number] 2022-Present [phone] [address] [place] [address] HMO [id number] 2022 Medicare [id number] 2016 Unknown [id number] 2015 Medicare [id number] 2010 Unknown [id number] Unknown [id number] Unknown [id number] Unknown [id number] Unknown [id number] Unknown [id number] Unknown [id number] Unknown [id number] Unknown [id number] Social History Date Type Detail Facility Start: 12-24-2019 End: 12-24-2019 Tobacco smoking status CAIS Unknown if ever smoked [facility] Start: 04-11-2017 None [facility] Start: 04-11-2017 [facility] Start: 04-30-2019 Non-smoker [facility] Start: 1950 Sex Assigned At Female [facility] Start: 12-24-2019 End: 04-23-2022 Tobacco smoking status CAIS Never smoked tobacco [facility] Start: 04-23-2022 Tobacco use and exposure Smokeless tobacco non-user [facility] Start: 04-23-2022 Alcohol intake Lifetime non-d jc (finding) [facility] Start: 1950 Sex Assigned At Not on file [facility] Progress note 04-23-2022 Note Date & Type Note Facility 04-23-2022 Note HNO ID: [id number] Author: Jena Moss APRN.GROUP CIO Service: ? Author Type: Nurse Practitioner Type: Progress Notes Filed: 04/23/2022 7:29 PM Note Text: Subjective The history is provided by the patient. No speech language pathologist prn was used. KINGSLEY Valentino is a 71 [...] have confirmed and edited as necessary, the [place] Review of Systems Constitutional: Positive for chills, [...] in 12-24 hours with results, available on [employer] - INFLUENZA AANDB MOLECULAR (POC) - 2019 [...] warranting prompt ER evaluation. Jena Moss APRN.CNP [facility] Instructions 04-23-2022 Patient Instructions Note Date [...] inability to swallow. documented in this encounter [facility] History of Present illness Narrative 04-23-2022 Jena Moss APRN.CNP - 04/23/2022 7:04 PM EST Note Date & Type Note Facility 04-23-2022 History of Presen t illness Narrative Subjective The history is provided by the patient. No speech language pathologist prn was used. HPI Quinton Valentino is a [...] have confirmed and edited as necessary, the [place] Review of Systems Constitutional: Positive for chills, [...] in 12-24 hours with results, available on [employer] - INFLUENZA A&B MOLECULAR (POC) - 2019 [...] warranting prompt ER evaluation. Jena Moss APRN.ROOPA documented in this encounter [facility] Evaluation note Note Date & Type Note Facility Evaluation note No assessment information availa ble [facility] Work Phone: Evaluation note Note Date & Type Note Facility Evaluation note Diagnosis Throat pain- Primary Influenza-like illness Influenza with other respiratory manifestations URI with cough and congestion documented in this encounter [facility] Reason for referral (narrative) Note Date & Type Note Facility Reason for referral (narrative) No reason for referral information available [facility] Work Phone: Chief Complaint and Reason for Visit Chief Complaint LABS AND XRAY- PAIN IN HAND Chief Complaint LABS AND XRAY- PAIN IN HAND Amaurosis fugax / Unspecified subjective visual di Chief Complaint LABS AND XRAY- PAIN IN HAND Amaurosis fugax / Unspecified subjective visual di SCREENING Chief Complaint LT ARM PAIN. RX HERE Chief Complaint NEED ORDER Chief Complaint NEED ORDER SCREENING Chief Complaint Admit Date SCREENING November 12, 2024 1:1 0pm Advance Directives No Advanced Directives Records Found Advance Directive Response Recorded Date/ Time Living Will No April 30 10:59am Power of Warehouse Freight Handler No April 30, 2019 10:59am Advance Directive Response Recorded Date/ Time Living Will No April 30 9:59am Power of Warehouse Freight Handler No April 30, 2019 9:59am Health Concerns [...] or prosecute any alcohol or drug abuse patient.[facility] Reason for Visit (unrecogniz ed section and content) Reason Comments Chest Congestion Pt reported throat p ain, nasal congestion x1 day, cough. INFORMATION SOURCE (unrecogn ized section and content) DATE CREATED AUTHOR 04/24/2022 [facility] DATE CREATED AUTHOR AUTHOR'S ORGANIZ ATION 12/19/2024 [facility] Care Teams (unrecognized sec tion and [...] October 22, 2024 End: October 22, 2024 Team Status: Inactive Member Role/Relationship Status Dates Dr. Neal Regalado MD Primary Care Provider Active Start: November 12, 2024 End: November 12, 2024 Dr. Neal Regalado MD Attending Provider Active Start: November 12, 2024 End: November 12, 2024 Dr. Neal Regalado MD Referring Provider Active Start: November 12, 2024 End: November 12, 2024 FOR RECORDS PERTAINING TO PATIENTS WHO [...] BE BASED ON THE PRIMARY CLINICAL RECORDS. [employer] provides no warranty or guarantee of the accuracy or completeness of information in this document.
== END | disposition home or self-care (01) ==
PROVIDERS: PCP Family Medicine; Referring Provider Urology; Visit Provider Urology
DX: R31.21 Asymptomatic microscopic hematuria (principal); R35.0 Frequency of micturition; R30.0 Dysuria
CPT/HCPCS: 74178; Q9967

== ENCOUNTER → 2025-02-04 | Outpatient (CLI) | payer MEDICARE, SELFPAY ==
[2025-02-04 12:47] LABS: Anion Gap 9 (5-15); BUN 14 mg/dL (4-19); BUN/Creat Ratio 23.8 RATIO (10-20); Calcium,Total 10.0 mg/dL (7.6-11.0); Carbon Dioxide 28.8 mmol/L (21.0-32.0); Chloride 102 mmol/L (98-108); Glucose 94 mg/dL (70-99); Potassium 4.5 mmol/L (3.3-5.1)
== END | disposition home or self-care (01) ==
LOC: MTLAB 10:37
PROVIDERS: PCP Family Medicine; Referring Provider Family Medicine; Visit Provider Family Medicine
DX: I10 Essential (primary) hypertension (principal)
CPT/HCPCS: 36415; 80048

== ENCOUNTER → 2025-02-21 | Outpatient (CLI) | payer MEDICARE, SELFPAY ==
--- NOTE | 2025-02-21 13:01 | RAD_ITS ---
PROCEDURE: RIBS NIL 2 V NO CXRS 02/21/2025 REASON FOR EXAM: PAIN TECHNIQUE: Procedure Code: RADI Modality: DX Procedure: RIBS NIL 2 V NO CXRS COMPARISON: Chest x-ray dated 05/12/2022 FINDINGS: Four views of the right ribs were obtained. Findings: Diffuse osteopenia of the ribs and right shoulder structures are noted. No displaced right rib fractures are seen. Mild degenerative osteoarthritic changes are seen involving the right acromioclavicular joint. Glenohumeral joint is well preserved. The acromial humeral and coracoclavicular spaces are well-maintained. The right lung is expanded without evidence of pneumothorax, lung contusion or pleural effusion. No pneumonic infiltrates are seen. Diffuse osteopenia of the thoracic spine and lumbar spine are noted. There is a dextroscoliosis of the thoracic spine. Spondylosis of the thoracic spine and lumbar spine are noted. Arteriosclerotic vascular disease of the aorta is noted. RAD/Ribs Unil 2V No CXR IMPRESSION: Diffuse osteopenia of the ribs are noted. No displaced right rib fractures are seen. Mild degenerative osteoarthritic changes are seen involving the right acromiocl avicular joint. Diffuse osteopenia of the thoracic spine and lumbar spine are noted. There is a dextroscoliosis of the thoracic spine. Spondylosis of the thoracic spine and lumbar spine are noted. Arteriosclerotic vascular disease of the aorta is noted. Reading Location: [id number]
--- OUTSIDE RECORDS SUMMARY | 2025-02-21 17:56 | XMS RPT_ITS | CCD ---
Author Organization [facility] Care Team Providers Care Brick Chimney Supervisor Name Role Phone Dr. Neal Regalado Primary Care Provider Dr. Billy Aguilera Attending Provider Unavailable Primary Care Provider Unavaildiego Regalado MD, Dr. De Jesus Primary Care Provider Fabricio BRINK, Dr. De Jesus Attending Provider Fabricio BRINK, Dr. De Jesus Referring Provider Fabricio BRINK, Dr. De Jesus Primary Care Provider [phone] Fabricio BRINK, Dr. De Jesus Attending Provider [phone] Fabricio BRINK, Dr. De Jesus Referring Provider [phone] Fabricio BRINK, Dr. De Jesus Primary Care Physician [phone] Fabricio BRINK, Dr. De Jesus Attending Physician Angel BRINK, Dr. Presley Sanchez Attending Physician Angel BRINK, Dr. Presley Sanchez Referring Provider [phone] Neal Regalado Attending Unavailable Regalado, Neal Referring Unavailable Regalado, Neal Primary Care Unavailable Regalado, Neal Attending Unavailable Regalado, Neal Referring Unavailable Regalado, Neal Primary Care Unavailable Regalado, Neal Referring Unavailable Regalado, Neal Primary Care Unavailable Regalado, Neal Attending Unavailable Presley Ortiz Attending Unavailable Presley Ortiz Referring Unavailable Regalado, Neal Primary Care Unavailable Regalado, Neal Attending Unavailable Regalado, Neal Referring Unavailable Regalado, Neal Primary Care Unavailable Regalado, Neal Referring Unavailable Regalado, Neal Primary Care Unavailable Regalado, Neal Attending Unavailable Regalado, Neal Attending Unavailable Regalado, Neal Referring Unavailable Regalado, eNal Primary Care Unavailable Regalado, Neal Attending Unavailable Regalado, Neal Referring Unavailable Regalado, Neal Primary Care Unavailable Allergies Allergy Classification Reported Allergen(s) Allergy Type Date of Onset Reaction(s) Facility (14 sources) Menthol Drug Allergy 0 Rash [facility] (1 source) Escitalopram Drug Allergy 3 Other: See Comments [facility] (1 source) Menthol Drug Allergy 0 [facility] Repository Medications Current Medications Medication Drug Class(es) Dates Sig (Normalized) Sig (Original) acetaminophen 500 mg oral tablet (13 sources) Start: 04-30-2019 take 500-1000 mg by mouth every six hours as needed for pain cholecalciferol 0.125 mg oral capsule (14 sources) Vitamin D Start: 04-10-2017 take 1 capsule by mouth once daily Comment on above: Cholecalciferol (Vit parkinson D3) Active 5000 UNIT DAILY April 10, 2017 8:28pm predniSONE 20 mg oral tablet (1 source) Start: 04-23-2022 End: 04-28-2022 take 2 tablets by mouth once daily predniSONE (DELTASONE) 20 mg tablet Take 2 tablets by mouth once daily for 5 days. 10 tablet 0 04/23/2022 04/28/2022 Active Comment on above: Take 2 tablets by [facility] once daily for 5 days. propranolol hydrochloride 40 mg oral tablet (14 sources) beta-Adrenergic Sara Start: 04-10-2017 take 1 tablet by mouth once daily Completed/Discontinued Medications Medication Drug Class(es) Dates Sig (Normalized) Sig (Original) acetaminophen 325 mg / HYDROcodone bitartrate 5 mg oral tablet (13 sources) Opioid Agonist Start: 05-01-2019 End: 05-06-2019 [...] May 01, 2019 May 06, 2019 1:08am [id number] 200 actuat albuterol 0.09 mg/actuat metered dose inhaler (14 sources) beta2-Adrenergic Agonist Start: 04-30-2019 albut garrett HFA (PROVENTIL HFA, VENTOLIN HFA) 90 mcg/actuation inhaler Inhale as instructed. 0 04/30/2019 Active Start: 04-30-2019 Start: 04-30-2019 take 1 puff(s) by in [...] Problem Date Documented Date Episodic/Chronic Essential hypertension (14 sources) Benign hypertension; Translations: [Essential (primary) hypertension] Onset: 02-14-2025 05-20-2017 Chronic Genitourinary symptoms and ill-defined conditions (3 sources) Asymptomatic microscopic hematuria; Translations: [Other symptoms and signs involving the genitourinary system] Onset: 06-11-2024 Episodic Influenza (1 source) Influenza-like illness; Translations: [Influenza due to unidentified influenza virus with other respiratory manifestations] Episodic Intestinal obstruction without hernia (13 sources) Partial obstruction of small bowel; Translations: [Partial intestinal obstruction, unspecified as to cause] 05-20-2017 Episodic Melanomas of skin (13 sources) Malignant melanoma; Translations: [Malignant melanoma of skin, unspecified] 05-20-2017 Chronic Other screening for suspected conditions (not mental disorders or infectious disease) (13 sources) Computed tomography result abnormal; Translations: [Abnormal [...] unspecified; Translations: [Diarrhea, unspecified] Onset: 08-03-2024 Episodic Results Test Name Value Interpretation Reference Range Facility Basic Metabolic Profile (BMP )on 02-04-2025 BUN/CRE 23.8 RATIO High 01-28 [facility] Comment on above: Performed By: #### L 500.2500 #### [facility] [address] [place], [address] Calcium [Mass/Vol] 10.0 mg/dL Normal 7.6-11.0 [facility] Comment on above: Performed By: #### L 500.2500 #### [facility] [address] [place], [address] Chloride [Moles/Vol] 102 mmol/L Normal 98-108 [facility] Comment on above: Performed By: #### L 500.2500 #### [facility] [address] [place], [address] CO2 [Moles/Vol] 28.8 mmol/L Normal 21.0-32.0 [facility] Comment on above: Performed By: #### L 500.2500 #### [facility] [address] [place], [address] Creatinine [Mass/Vol] 0.59 mg/dL Low 0.70-1.20 [facility] Comment on above: Performed By: #### L 500.2500 #### [facility] [address] [place], [address] GAP 9 Normal 5-15 [facility] Comment on above: Performed By: #### L 500.2500 #### [facility] [address] [place], [address] GFR/1.73 sq M.predicted among non-blacks MDRD (S/P/Bld) [Vol rate/Area] 95 mL/min/{1.73_m2} Normal >60 [facility] Comment on above: Result Comment: mL/m in/1.73m2 CKD-EPI Creatinine Equation (2020) Performed By: #### L 500.2500 #### [facility] [address] [place], [address] Glucose [Mass/Vol] 94 mg/dL Normal 70-99 [facility] Comment on above: Performed By: #### L 500.2500 #### [facility] [address] [place], [address] Potassium [Moles/Vol] 4.5 mmol/L Normal 3.3-5.1 [facility] Comment on above: Performed By: #### L 500.2500 #### [facility] [address] [place], [address] Sodium [Moles/Vol] 140 mmol/L Normal 133-145 [facility] Comment on above: Performed By: #### L 500.2500 #### [facility] [address] [place], [address] Urea nitrogen [Mass/Vol] 14 mg/dL Normal 4-19 [facility] Comment on above: Performed By: #### L 500.2500 #### [facility] [address] [place], [address] CT Abd/Pelvis W/WO Contrasto n 12-19-2024 CT Abd/Pelvis W/WO Contrast [facility] Imaging Services [address] [place] [address] CT Abd/Pelvis W/WO Contrast MR#: [id number] Acct: [id number] Name: QUINTON VALENTINO Rep #: [id number] : 1950 F 74 From: Cory Sánchez MD PCP: Dr. Neal Regalado MD Status: REG CLI Study: CT Abd/Pelvis W/WO Contrast Date of Exam: 12/10 Exam# [id number] Ordering Dr: Presley Ortiz MD PROCEDURE: CT ABD/PELVIS W/WO CONTRAST 12/19/2024 REASON FOR EXAM: DYSURIA/FREQUENCY/MICRO HEMATURIA TECHNIQUE: Procedure Code: [id number] Modality: CT Procedure: CT ABD/PELVIS W/WO CONTRAST Coronal and Sagittal reconstruction series were provided. CONTRAST: Isovue-300 VOLUME: 98 mL One or more dose reduction techniques were used (e.g., Automated exposure control, adjustment of the mA and/or kV according to patient size, use of iterative reconstruction technique. RADIATION DOSE SUMMARY: DLP: 3103.89 mGycm COMPARISON: None available. FINDINGS: Lung bases: Clear. Liver: Within normal limits. Subcentimeter circumscribed benign-appearing cyst in the anterior left hepatic lobe. No suspicious focal lesion. Gallbladder: Unremarkable. No biliary ductal dilatation. Spleen: Normal size and morphology. Pancreas: Unremarkable. Adrenals: Unremarkable. Kidneys/Bladder: Normal, symmetric renal nephrograms. No mass lesion, urolithiasis or hydronephrosis. Urinary bladder is underdistended, possibly with mild circumferential bladder wall thickening which may be related to cystitis. Delayed postcontrast imaging demonstrates normal symmetric excretion of IV contrast from the bilateral renal collecting systems into the urinary bladder without obstruction. Reproductive Organs: Multiple small degenerative calcified uterine fibroids. Small 2.1 cm simple appearing left ovarian cyst. Unremarkable right ovary. Bowel: Small hiatal hernia. Otherwise unremarkable stomach and small bowel. No evidence of obstruction or active inflammatory process. Normal appendix. Mild distal colonic diverticulosis without evidence for active diverticulitis/colitis. Lymph nodes: No enlarged abdominopelvic lymph nodes. Vasculature: Normal caliber abdominal aorta and IVC. Mild atherosclerotic disease. Peritoneum / Retroperitoneum: No ascites or free air. Bones: Mild degenerative changes of the spine. Chronic anterior wedge compression deformity of the T11 vertebral body, and minimal grade 1 degenerative anterolisthesis of L4 on L5. CT/CT Abd/Pelvis W/WO Contrast IMPRESSION: 1. Urinary bladder wall thickening; correlate clinically for possible cystitis. 2. Normal appearance of the kidneys. No renal mass, urolithiasis or hydronephrosis. 3. Multiple small calcified degenerative uterine fibroids. 4. Small 2.1 cm simple left ovarian cyst; no follow-up indicated. Reading Location: [facility] CC: Dr. Presley Ortiz MD; Dr. Neal Regalado MD Therapeutic Radiologist: Signed Normal [facility] Breast imaging reportOrdered By: Galina Muñoz on 11-12-2024 Study report [facility] Imaging Services [address] [place], [place] [address] SCRN MAMM (CAD)W/ARASH BILAT MR#: [id number] Acct: [id number] Name: QUINTON VALENTINO Rep #: [id number] : 1950 F 74 From: Moses Muñoz DO PCP: Dr. Neal Regalado MD Status: MYLENE VAIL Study:SCRN MAMM (CAD)W/ARASH BILAT Date of Exa m: 11/12/24 Exam# [id number] Ordering Dr: Neal Regalado MD EXAM: SCRN [...] be mailed to the patient. Reading Location: [id number] CC: Dr. Neal Regalado MD ~ Therapeutic Radiologist: Signed [facility] SCRN MAMM (CAD)W/ARASH BILATo n 11-12-2024 SCRN MAMM (CAD)W/ARASH BILAT [facility] Imaging Services [address] [place] [id number] SCRN MAMM (CAD)W/ARASH BILAT MR#: [id number] Acct: [id number] Name: QUINTON VALENTINO Rep #: [id number] : 1950 F 74 From: Galina Martin O PCP: Dr. Neal Regalado MD Status: REG CLI Study: SCRN MAMM (CAD)W/ARASH BILAT Date of Exam: 08/03 Exam# [id number] Ordering Dr: Neal Regalado MD EXAM: SCRN [...] be mailed to the patient. Reading Location: [facility] CC: Dr. Neal Regalado MD Therapeutic Radiologist: Signed Normal [facility] Anion gap in Serum or Plasma Ordered By: Neal Regalado on 10-22-2024 Anion gap [Moles/Vol] 10 mmol/L 5-15 [facility] BUN/creatinine ratioOrdered By: Neal Regalado on 10-22-2024 Urea nitrogen/Creatinine [Mass ratio] 21.2 mg/mg High - [facility] Basic Metabolic Profile (BMP )on 10-22-2024 BUN/CRE 21.2 RATIO High 01-28 [facility] Comment on above: Performed By: #### L 500.2500 #### [facility] [address] [place], [address] Calcium [Mass/Vol] 9.7 mg/dL Normal 7.6-11.0 [facility] Comment on above: Performed By: #### L 500.2500 #### [facility] [address] [place], [address] Chloride [Moles/Vol] 105 mmol/L Normal 98-108 [facility] Comment on above: Performed By: #### L 500.2500 #### [facility] [address] [place], [address] CO2 [Moles/Vol] 27.0 mmol/L Normal 21.0-32.0 [facility] Comment on above: Performed By: #### L 500.2500 #### [facility] [address] [place], [address] Creatinine [Mass/Vol] 0.69 mg/dL Low 0.70-1.20 [facility] Comment on above: Performed By: #### L 500.2500 #### [facility] [address] [place], [address] GAP 10 Normal 5-15 [facility] Comment on above: Performed By: #### L 500.2500 #### [facility] [address] [place], [address] GFR/1.73 sq M.predicted among non-blacks MDRD (S/P/Bld) [Vol rate/Area] 91 mL/min/{1.73_m2} Normal >60 [facility] Comment on above: Result Comment: mL/m in/1.73m2 CKD-EPI Creatinine Equation (2020) Performed By: #### L 500.2500 #### [facility] [address] [place], [address] Glucose [Mass/Vol] 87 mg/dL Normal 70-99 [facility] Comment on above: Performed By: #### L 500.2500 #### [facility] [address] [place], [address] Potassium [Moles/Vol] 4.0 mmol/L Normal 3.3-5.1 [facility] Comment on above: Performed By: #### L 500.2500 #### [facility] [address] [place], [address] Sodium [Moles/Vol] 143 mmol/L Normal 133-145 [facility] Comment on above: Performed By: #### L 500.2500 #### [facility] [address] [place], [address] Urea nitrogen [Mass/Vol] 15 mg/dL Normal 4-19 [facility] Comment on above: Performed By: #### L 500.2500 #### [facility] [address] [place], [address] Carbon dioxide, total [Moles /volume] in Central venous bloodOrdered By: Neal Regalado on 10-22-2024 CO2 [Moles/Vol] 27.0 mmol/L 21.0-32.0 [facility] Chloride assayOrdered By: Florian Regalado on 10-22-2024 Chloride [Moles/Vol] 105 mmol/L 98-108 [facility] Glomerular filtration rate ( GFR) estimation/1.73 sq m using serum, plasma, or whole bOrdered By: Neal Regalado on 10-22-2024 GFR/1.73 sq M.predicted among non-blacks MDRD (S/P/Bld) [Vol rate/Area] 91 mL/min/{1.73_m2} >60 [facility] Comment on above: mL/min/1.73m2 CKD-EP I Creatinine Equation (2020) Potassium measurement (mass/ volume)Ordered By: Neal Regalado on 10-22-2024 Potassium (Unsp spec) [Mass/Vol] 4.0 mmol/L 3.3-5.1 [facility] Serum creatinine measurement (mass/volume)Ordered By: Neal Regalado on 10-22-2024 Creatinine [Mass/Vol] 0.69 mg/dL Low 0.70-1.20 [facility] Serum glucose measurement (m ass/volume)Ordered By: Neal Regalado on 10-22-2024 Glucose [Mass/Vol] 87 mg/dL 70-99 [facility] Serum or plasma calcium jeremías urement (mass/volume)Ordered By: Neal Regalado on 10-22-2024 Calcium [Mass/Vol] 9.7 mg/dL 7.6-11.0 [facility] Serum or plasma urea nitroge n measurement (mass/volume)Ordered By: Neal Regalado on 10-22-2024 Urea nitrogen [Mass/Vol] 15 mg/dL 4-19 [facility] Sodium levelOrdered By: Neal Regalado on 10-22-2024 Sodium [Moles/Vol] 143 mmol/L 133-145 [facility] Urine Cultureon 09-14-2024 [facility] Escherichia coli Effort Count >100,000 Morganella morganii sp morgani Morganella [...] TMP SMX Islt TRAN <=20 S Normal [facility] Comment on above: Performed By: #### M 100.2200 #### [facility] [address] [place], [place], [id number] Urine cultureOrdered By: Kathy Regalado on 09-11-2024 Bacteria identified Cx Nom (U) Escherichia coli Abnormal [facility] Bacteria identified Cx Nom (U) Morganella morganii sp morgani Abnormal [facility] Urine Cultureon 06-02-2024 [facility] Mixed Gram Pos Gram Neg Org Effort Count 11,000-25,000 [facility]IX[facility] Mixed contaminants. Submit a new specimen if indicated. Normal [facility] Comment on above: Performed By: #### M 100.2200 #### [facility] [address] [place], [place], [id number] Urine cultureOrdered By: Kathy Regalado on 05-31-2024 Bacteria identified Cx Nom (U) Mixed Gram Pos & Gram Neg Org Abnormal [facility] Basic Metabolic Profile (BMP )on 04-26-2024 BUN/CRE 20.6 RATIO High - [facility] Comment on above: Performed By: #### L 500.2500, L500.4100 #### [facility] [address] [place], [address] CA,Total 9.9 mg/dL Normal 8.5-10.1 [facility] Comment on above: Performed By: #### L 500.2500, L500.4100 #### [facility] [address] [place], [address] Chloride [Moles/Vol] 106 mmol/L Normal 98-107 [facility] Comment on above: Performed By: #### L 500.2500, L500.4100 #### [facility] [address] [place], [address] CO2 [Moles/Vol] 30.0 mmol/L Normal 21.0-32.0 [facility] Comment on above: Performed By: #### L 500.2500, L500.4100 #### [facility] [address] [place], [address] Creatinine [Mass/Vol] 0.68 mg/dL Normal 0.55-1.02 [facility] Comment on above: Result Comment: The validity of the calculated GFR GFRAA in patients over 70 years has not been determined. Clinical correlation is essential. Performed By: #### L 500.2500, L500.4100 #### [facility] [address] [place], [address] EST GFR - AA 109 mL/min Normal >60 [facility] Comment on above: Result Comment: Afri can [place]cu[place]orean GFR Calc Performed By: #### L 500.2500, L500.4100 #### [facility] [address] [place], [address] GAP 5 Normal 5-15 [facility] Comment on above: Performed By: #### L 500.2500, L500.4100 #### [facility] [address] [place], [address] GFR/1.73 sq M.predicted among non-blacks MDRD (S/P/Bld) [Vol rate/Area] 90 mL/min/{1.73_m2} Normal >60 [facility] Comment on above: Result Comment: Non- GFR Calc Performed By: #### L 500.2500, L500.4100 #### [facility] [address] [place], [address] Glucose [Mass/Vol] 94 mg/dL Normal 74-106 [facility] Comment on above: Performed By: #### L 500.2500, L500.4100 #### [facility] [address] [place], [address] Potassium [Moles/Vol] 4.2 mmol/L Normal 3.5-5.1 [facility] Comment on above: Performed By: #### L 500.2500, L500.4100 #### [facility] [address] [place], [address] Sodium [Moles/Vol] 141 mmol/L Normal 136-145 [facility] Comment on above: Performed By: #### L 500.2500, L500.4100 #### [facility] [address] [place], [address] Urea nitrogen [Mass/Vol] 14 mg/dL Normal 7-18 [facility] Comment on above: Performed By: #### L 500.2500, L500.4100 #### [facility] [address] [place], [address] Lipid Profileon 04-26-2024 Cholesterol [Mass/Vol] 187 mg/dL Normal 200 [facility] Comment on above: Result Comment: <200 mg/dL Desirable 200-240 mg/dL Borderline >240 mg/dL High Risk Performed By: #### L 500.2500, L500.4100 #### [facility] [address] [place], [address] Cholesterol in HDL [Mass/Vol] 58 mg/dL Normal [facility] Comment on above: Result Comment: The drugs N-Acetylcysteine and Metamizole may falsely depress this assay. Reference Range HDL <40 mg/dL Low HDL Cholesterol HDL >or= 60 mg/dL High HDL Cholesterol Performed By: #### L 500.2500, L500.4100 #### [facility] [address] [place], [address] Cholesterol in LDL [Mass/Vol] 104 mg/dL Normal 0-130 [facility] Comment on above: Performed By: #### L 500.2500, L500.4100 #### [facility] [address] [place], [address] Cholesterol in VLDL [Mass/Vol] 25 mg/dL Normal 5-40 [facility] Comment on above: Performed By: #### L 500.2500, L500.4100 #### [facility] [address] [place], [address] Triglyceride [Mass/Vol] 125 mg/dL Normal [facility] Comment on above: Result Comment: The drugs N-Acetylcysteine and Metamizole may falsely depress this assay. Serum Triglycerides Reference Interval Normal <150 mg/dL Borderline high 150 - 199 mg/dL High 200 - 499 mg/dL Very High > or = 500 mg/dL Performed By: #### L 500.2500, L500.4100 #### [facility] [address] [place], [address] Basophil percentageOrdered B y: Neal Regalado on 10-04-2022 Chloride [Moles/Vol] 107 mmol/L 98-107 [facility] Cholesterol [Mass/Vol] 143 mg/dL <200 [facility] Comment on above: <200 mg/dL Desirable 200-240 mg/dL Borderline >240 mg/dL High Risk Glucose [Mass/Vol] 93 mg/dL 74-106 [facility] Potassium [Moles/Vol] 4.1 mmol/L 3.5-5.1 [facility] Sodium [Moles/Vol] 141 mmol/L 136-145 [facility] Triglyceride [Mass/Vol] 94 mg/dL <199 [facility] Comment on above: The drugs N-Acetylcy steine and Metamizole may falsely depress this assay.Serum Triglycerides Reference Interval Normal <150 mg/dL Borderline high 150 - 199 mg/dL High 200 - 499 mg/dL Very High > or = 500 mg/dL Laboratory - Chemistry and C hemistry - challengeOrdered By: Neal Regalado on 10-04-2022 CO2 [Moles/Vol] 31.0 mmol/L 21.0-32.0 [facility] Urea nitrogen/Creatinine [Mass ratio] 14.7 mg/mg 10-20 [facility] No Panel InformationOrdered By: Neal Regalado on 10-04-2022 Estimated GFR (MDRD) Amer 98 mL/min >60 [facility] Comment on above: GFR Calc Estimated GFR (MDRD) Non-Af Amer 81 mL/min >60 [facility] Comment on above: Non- GFR Calc Serum or plasma calcium jeremías urement (mass/volume)Ordered By: Neal Regalado on 10-04-2022 Calcium [Mass/Vol] 9.4 mg/dL 8.5-10.1 [facility] Serum or plasma cholesterol in HDL measurement (mass/volume)Ordered By: Neal Regalado on 10-04-2022 Cholesterol in HDL [Mass/Vol] 49 mg/dL >40 [facility] Comment on above: The drugs N-Acetylcy steine and Metamizole may falsely depress this assay. Reference Range HDL <40 mg/dL Low HDL Cholesterol HDL >or= 60 mg/dL High HDL Cholesterol Serum or plasma cholesterol in VLDL measurement (mass/volume)Ordered By: Neal Regalado on 10-04-2022 Cholesterol in VLDL [Mass/Vol] 19 mg/dL 5-40 [facility] Serum or plasma creatinine m easurement (mass/volume)Ordered By: Neal Regalado on 10-04-2022 Creatinine [Mass/Vol] 0.75 mg/dL 0.55-1.02 [facility] Comment on above: The validity of the calculated GFR & GFRAA in patients over 70 years has not been determined. Clinical correlation is essential. Serum or plasma low density lipoprotein (LDL) cholesterol measurement (mass/volume)Ordered By: Neal Regalado on 10-04-2022 Cholesterol in LDL [Mass/Vol] 75 mg/dL 0-130 [facility] Serum or plasma urea nitroge n measurement (mass/volume)Ordered By: Neal Regalado on 10-04-2022 Urea nitrogen [Mass/Vol] 11 mg/dL 7-18 [facility] Thin prep Papanicolaou smear with manual screeningOrdered By: Neal Regalado on 10-04-2022 Thin prep Papanicolaou smear with manual screening 3 5-15 [facility] CNPNon 04-24-2022 CNPN Telephone ([facility]) QUINTON VALENTINO ([id number]) 1950 F Date Time Provider Department 04/24/22 APOLONIA ORTEGA [facility] During your visit today, we recorded the following information about you: Brigida Barber MA 04/24/2022 1:22 PM Signed ----- Message from Apolonia Ortega APRN.SUPERINTENDENT TRACK sent at 04/24/2022 11:32 AM EST ----- [...] Encounter Status:Closed by BRIGIDA BARBER on 04/24/22 Normal [facility] CNOVon 04-23-2022 CNOV Office Visit ([facility] ) QUINTON VALENTINO ([id number]) 1950 F Date Time Provider Department 04/23/22 7:00 PM JENA MOSS [facility] During your visit today, we recorded the following information about you: Temperature Pulse Respiration Weight 99.2 degrees 112/minute 18/minute 82.1 kg Jena Moss APRN.SUPERINTENDENT TRACK 04/23/2022 7:29 PM Signed Subjective The history is provided by the patient. No world language teacher was used. HPI Quinton Valentino is a [...] have confirmed and edited as necessary, the [facility] Review of Systems Constitutional: Positive for [...] bleeding. MEN (more content not included)... Normal [facility] INFLUENZA A&B MOLECULAR (POC )on 04-23-2022 Flu A (POCT) Negative Negative [facility] Flu B (POCT) Negative Negative [facility] [facility] Procedural Control Valid [facility] SARS-CoV-2 RNA Resp Ql ИРИНА+p robeon 04-23-2022 SARS-CoV-2 (COVID-19) RNA ИРИНА+probe Ql (Resp) COVID 19 RESULT: SARS-CoV-2 (Agent of COVID-19) Not Detected by RT-PCR or equivalent method. This test was developed and its performance characteristics determined by [facility]'s [facility] [place]. This test has been authorized by FDA under an Emergency Use Authorization (EUA). This test has been validated in accordance with the FDA's Guidance Document Policy for Diagnostics Testing in Laboratories Certified to Perform High Complexity Testing under CLIA prior to Emergency use Authorization for Coronavirus Disease 2019 during the Public Health Emergency issued on June 09, 2019. Test performed by [facility], [facility]ld[facility]abe[facility] [place], [address] [place] [address]. Normal [facility] Comment on above: Performed By: #### 9 [id number] #### [facility] CLIA [id number] [address] [place] [address] [place] [address] [place] STREP A MOLECULAR (POC)on Procedural Control Valid [facility] Strep A (POCT) Negative Negative [facility] Basophil percentageon 2021 Chloride [Moles/Vol] 106 mmol/L 98-107 [facility] Work Phone: Cholesterol [Mass/Vol] 179 mg/dL <200 [facility] Work Phone: Comment on above: <200 mg/dL Desirable 200-240 mg/dL Borderline >240 mg/dL High Risk Glucose [Mass/Vol] 87 mg/dL 74-106 [facility] Work Phone: Potassium [Moles/Vol] 4.1 mmol/L 3.5-5.1 [facility] Work Phone: Sodium [Moles/Vol] 140 mmol/L 136-145 [facility] Work Phone: Triglyceride [Mass/Vol] 144 mg/dL <199 [facility] Work Phone: Comment on above: The drugs N-Acetylcy steine and Metamizole may falsely depress this assay.Serum Triglycerides Reference Interval Normal <150 mg/dL Borderline high 150 - 199 mg/dL High 200 - 499 mg/dL Very High > or = 500 mg/dL Laboratory - Chemistry and C hemistry - challengeon 10-16-2021 CO2 [Moles/Vol] 30.0 mmol/L 21.0-32.0 [facility] Work Phone: Urea nitrogen/Creatinine [Mass ratio] 31.1 mg/mg 10-20 [facility] Work Phone: No Panel Informationon 10-16 Estimated GFR (MDRD) Amer 117 mL/min >60 [facility] Work Phone: Comment on above: GFR Calc Estimated GFR (MDRD) Non-Af Amer 97 mL/min >60 [facility] Work Phone: Comment on above: Non- GFR Calc Serum or plasma calcium jeremías urement (mass/volume)on 10-16-2021 Calcium [Mass/Vol] 9.5 mg/dL 8.5-10.1 [facility] Work Phone: Serum or plasma cholesterol in HDL measurement (mass/volume)on 10-16-2021 Cholesterol in HDL [Mass/Vol] 54 mg/dL >40 [facility] Work Phone: Comment on above: The drugs N-Acetylcy steine and Metamizole may falsely depress this assay. Reference Range HDL <40 mg/dL Low HDL Cholesterol HDL >or= 60 mg/dL High HDL Cholesterol Serum or plasma cholesterol in VLDL measurement (mass/volume)on 10-16-2021 Cholesterol in VLDL [Mass/Vol] 29 mg/dL 5-40 [facility] Work Phone: Serum or plasma creatinine m easurement (mass/volume)on 10-16-2021 Creatinine [Mass/Vol] 0.64 mg/dL 0.55-1.02 [facility] Work Phone: Comment on above: The validity of the calculated GFR & GFRAA in patients over 70 years has not been determined. Clinical correlation is essential. Serum or plasma low density lipoprotein (LDL) cholesterol measurement (mass/volume)on 10-16-2021 Cholesterol in LDL [Mass/Vol] 96 mg/dL 0-130 [facility] Work Phone: Serum or plasma urea nitroge n measurement (mass/volume)on 10-16-2021 Urea nitrogen [Mass/Vol] 20 mg/dL 7-18 [facility] Work Phone: Thin prep Papanicolaou smear with manual screeningon 10-16-2021 Thin prep Papanicolaou smear with manual screening 4 5-15 [facility] Work Phone: Vital Signs Date Time Vital Sign Value Performing Clinician Facility 11-02-2022 09:12-0400 Body height 167.64 cm [facility] 04-23-2022 18:54-0500 Body temperature 99.19 [degF] Jena Isa [employer]OX LINING MACHINE FEEDER.[employer]PERINTENDENT TR[employer] Work Phone: [facility] 04-23-2022 18:54-0500 Body weight 82.1 kg Jena Isa [employer] LINING MACHINE FEEDER.SUPERINTENDENT TR[employer] Work Phone: [facility] 04-23-2022 18:54-0500 Heart rate 112 /min Jena Isa [employer] LINING MACHINE FEEDER.SUPERINTENDENT TRACK Work Phone: [facility] 04-23-2022 18:54-0500 Respiratory rate 18 /min Jena Isa [employer] LINING MACHINE FEEDER.SUPERINTENDENT TRACK Work Phone: [facility] 04-23-2022 18:54-0500 SaO2% (BldA) [Mass fraction] 96 % Jena Isa [employer]OX LINING MACHINE FEEDER.SUPERINTENDENT TRACK Work Phone: [facility] Encounters Encounter Date Encounter Type Care Provider Facility Start: 02-04-2025 End: 02-04-2025 ambulatory Neal Regalado Facility:[facility] Start: 12-19-2024 End: 12-19-[address] Neal Regalado MD Work Phone: -Cat Scan [facility] Start: 12-19-2024 End: 12-19-[address] Presley Ortiz MD -Cat Scan [facility] Work Phone: Start: 12-19-2024 End: 12-19-2024 ambulatory Presley Ortiz Facility:[facility] Start: 11-12-2024 End: 11-12-[address] Neal Regalado MD Work Phone: -Outpatient Breast Imaging Start: 11-12-2024 End: 11-12-[address] Neal Regalado MD -Outpatient Breast Imaging Work Phone: Start: 11-12-2024 End: 11-12-2024 ambulatory Neal Regalado Facility:[facility] Start: 10-22-2024 End: 10-22-[address] Neal Regalado MD Work Phone: -Laboratory [facility] Start: 10-22-2024 End: 10-22-[address] Neal Regalado MD -Laboratory [facility] Start: 10-22-2024 End: 10-22-2024 ambulatory Neal Regalado Facility:[facility] Start: 09-11-2024 End: 09-11-[address] Neal Regalado MD Work Phone: [facility] Work Phone: Start: 09-11-2024 End: 09-11-[address] Neal Regalado MD -Laboratory Specimen Work Phone: Start: 09-11-2024 End: 09-11-2024 ambulatory Neal Regalado Facility:[facility] Start: 08-03-2024 ambulatory Neal Regalado Facility:[facility] Start: 05-31-2024 End: 05-31-[address] Neal Regalado MD -Laboratory [facility] Start: 05-31-2024 End: 05-31-2024 ambulatory Neal Regalado Facility:[facility] Start: 04-26-2024 End: 04-26-2024 ambulatory Neal Regalado Facility:[facility] Start: 08-04-2023 End: 08-04-2023 ambulatory [facility] Work Phone: Start: 08-04-2023 End: 08-04-2023 Patient encounter procedure [facility] Work Phone: Start: 11-02-2022 End: 11-02-2022 ambulatory [facility] Work Phone: Start: 11-02-2022 End: 11-02-2022 Patient encounter procedure [facility] D[facility] Work Phone: Start: 10-04-2022 End: 10-04-2022 ambulatory [facility] Work Phone: Start: 10-04-2022 End: 10-04-2022 [facility] Work [facility]: Start: 05-20-2022 [facility] Start: 05-12-2022 End: 05-12-2022 ambulatory [facility] Work Phone: Start: 05-12-2022 End: 05-12-2022 [facility] Start: 04-23-2022 End: 04-23-2022 ambulatory Facility:[facility] Start: 04-23-2022 End: 04-23-2022 Patient encounter procedure Jena Moss [facility] Work Phone: [facility] Comment on above: Throat pain (Primary Dx); Influenza-like illness; URI with cough and congestion Start: 04-22-2022 [facility] Start: 04-19-2022 End: 04-19-2022 ambulatory [facility] Work Phone: Start: 04-19-2022 End: 04-19-2022 Patient encounter procedure [facility] Start: 10-29-2021 End: 10-29-[address] Neal Regalado Work Phone: [facility]Outpatient Breast [facility] Start: 10-22-2021 Non-patient / Non-visit Dr. Florian Regalado Work Phone: [facility] Start: 10-22-2021 End: 10-22-[address] Neal Regalado Work Phone: [facility]Cardi[facility] Services Start: 10-16-2021 End: 10-16-2021 [facility] Procedures Date Procedure Procedure Detail Performing Clinician Start: 12-19-2024 Computed tomography of abdomen and pelvis with contrast Dr. Neal Regalado MD Work Phone: Start: 11-12-2024 Screening mammography D ben Regalado MD Work Phone: Start: 09-11-[address] Neal Regalado MD Work Phone: Start: 05-31-[address] Neal Regalado MD Work Phone: Start: 11-02-2022 Dual energy X-ray absorptiometry Start: 11-02-2022 Screening mammography Start: 05-12-2022 Plain chest X-ray Start: 04-23-2022 INFLUENZA A&B MOLECU LAR (POC) [facility] Provider Start: 04-23-2022 STREP A MOLECULAR (POC) Dahlia Older [employer]OX LINING MACHINE FEEDER[employer]SUPERINTENDENT TRACK Work Phone: Start: 04-19-2022 Plain x-ray of humerus Start: 04-19-2022 Plain X-ray of shoulder Start: 10-29-2021 Screening mammography Mario Regalado Work Phone: Start: 10-16-2021 Plain x-ray of hand Plan of Treatment Date Care Activity Detail Author Start: 09-11-2024 Urine culture Urine Culture [facility] Start: 09-11-2024 [facility] Start: 08-04-2023 [facility] Start: 04-23-2022 End: 06-23-2022 INFLUENZA A&B MOLECULAR (POC) INFLUENZA A&B MOLECULAR (POC) Microbiology Routine Influenza-like illness Expected: 04/23/2022, Expires: 06/23/2022 [facility] Work Phone: Comment on above: Expected: 04/23/2022 , Expires: 06/23/2022 Start: 04-23-2022 End: 05-07-2022 SARS-CoV-2 (COVID-19) RNA [Presence] in Respiratory specimen by ИРИНА with probe detection 2019 CORONAVIRUS Microbiology Routine Influenza-like illness URI with cough and congestion Expected: 04/23/2022, Expires: 05/07/2022 [facility] Work Phone: Comment on above: Expected: 04/23/2022 , Expires: 05/07/2022 Start: 04-11-2022 ADVANCE DIRECTIVE DISCUSSION ADVANCE DIRECTIVE DISCUSSION [facility] Start: 01-01-2023 DEPRESSION ASSESSMENT DEPRESSION ASS ESSMENT [facility] Start: 08-02-2015 BONE DENSITY BONE DENSITY [facility] Start: 08-02-2015 PNEUMOCOCCAL: 65+ (1 - PCV) PNEUMOCOCCAL: 65+ (1 - PCV) [facility] Start: 2000 SHINGRIX VACCINE (1 of 2) SHINGRIX VACCINE (1 of 2) [facility] Start: 08-02-1995 COLOGUARD (FIT-DNA) COLOGUARD (FIT-D NA) [facility] Start: 08-02-1995 Colonoscopy COLONOSCOPY [facility] Start: 08-02-1995 COLORECTAL CANCER SCREENING COLORECTAL CANCER SCREENING [facility] Start: 08-02-[address] COLONOGRAPHY [facility] Start: 08-02-1995 DIABETES SCREEN DIABETES SCREEN [facility] Start: 08-02-1995 FECAL OCCULT BLOOD FECAL OCCULT BLOO D [facility] Start: 08-02-1995 LIPID SCREEN LIPID SCREEN [facility] Start: 08-02-1995 SIGMOIDOSCOPY SIGMOIDOSCOPY [facility] Start: 1990 Mammography MAMMOGRAM [facility] Start: 1969 Urine microalbumin profile DTAP,TDAP,TD (1 - Tdap) [facility] Start: 1968 HEPATITIS C SCREENING HEPATITIS C SC REENING [facility] Alternaria alternata IgE Ab [Units/volume] in Serum [facility] Ecuadorean Cockroach I gE Ab [Units/volume] in Serum [facility] Ecuadorean house dust mite IgE Ab [Units/volume] in Serum [facility] Aspergillus fumigatu s RAST [facility] Bahia grass IgE Ab [Units/volume] in Serum [facility] B[place] grass IgE Ab [Units/volume] in Serum [facility] Box elder RAST [facility] Cat dander IgE Ab [Units/volume] in Serum [facility] Cladosporium herbaru m IgE Ab [Units/volume] in Serum [facility] Common Ragweed IgE A b [Units/volume] in Serum [facility] Dog epithelium IgE A b [Units/volume] in Serum [facility] house dust mite IgE Ab [Units/volume] in Serum [facility] Hazelnut Pollen IgE Ab [Units/volume] in Serum [facility] Rolly grass IgE Ab [Units/volume] in Serum [facility] [place] blue grass IgE Ab [Units/volume] in Serum [facility] Mountain Juniper IgE Ab [Units/volume] in Serum [facility] Mucor racemosus IgE Ab [Units/volume] in Serum [facility] Mugwort IgE Ab [Units/volume] in Serum [facility] Ingram RAST [facility] Nettle IgE Ab [Units/volume] in Serum [facility] Penicillium notatum IgE Ab [Units/volume] in Serum [facility] Plantain (Slovak) RAST [facility] Rough Pigweed IgE Ab [Units/volume] in Serum [facility] Sheep [place] IgE Ab [Units/volume] in Serum [facility] Stemphylium botryosu m IgE Ab [Units/volume] in Serum [facility] Sweet gum [facility] Tree pollen [facility] White Elm IgE Ab [Units/volume] in Serum [facility] White [place] IgE Ab [Units/volume] in Serum [facility] Bacliff IgE Ab [Units/volume] in Serum [facility] Immunizations Immunization Date Immunization Notes Care Provider Trista melissa 01-26-2017 Influenza virus vaccine W [facility] Payers Date Payer Category Payer Self-pay [id number] 2022 Medicare [employer] [place] [id number] 2022-Present [phone] [address] [place] [address] [facility] [id number] 2022 Medicare [id number] 2016 Unknown [id number] 2015 Medicare [id number] 2010 Unknown [id number] Unknown [id number] Unknown [id number] Unknown [id number] Unknown [id number] Unknown [id number] Unknown [id number] Unknown [id number] Unknown [id number] Social History Date Type Detail Facility Start: 12-24-2019 End: 12-24-2019 Tobacco smoking status RIIS Unknown if ever smoked [facility] Start: 04-11-2017 None [facility] Start: 04-11-2017 [facility] Start: 04-30-2019 Non-smoker [facility] Start: 1950 Sex Assigned At Female W [facility] Start: 12-24-2019 End: 04-23-2022 Tobacco smoking status RIIS Never smoked tobacco [facility] Start: 04-23-2022 Tobacco use and exposure Smokeless tobacco non-user [facility] Start: 04-23-2022 Alcohol intake Lifetime non-d jc (finding) [facility] Start: 1950 Sex Assigned At Not on file C [facility] Sex Female [facility] Radiology Diagnostic study note 12-20-2024 Note Date & Type Note Facility 12-20-2024 Radiology Diagnostic study note [facility] Imaging Services [address] [place] [address] CT Abd/Pelvis W/WO Contrast MR#: [id number] Acct: [id number] Name: QUINTON VALENTINO Rep #: [id number] : 1950 F 74 From: [facility] villa Sánchez MD PCP: Dr. Neal Regalado MD Status: MYLENE VAIL Study:CT Abd/Pelvis W/WO Contrast Date of Exa m: 12/19/24 Exam# [id number] Ordering Dr: Pedro Ortiz MD PROCEDURE: CT ABD/PELVIS W/WO CONTRAST 12/19/2024 REASON FOR EXAM: DYSURIA/FREQUENCY/MICRO HEMATURIA TECHNIQUE: Procedure Code: [id number] Modality: CT Procedure: CT ABD/PELVIS W/WO CONTRAST Coronal and Sagittal reconstruction series were provided. CONTRAST: Isovue-300 VOLUME: 98 mL One or more dose reduction techniques were used (e.g., Automated exposure control, adjustment of the mA and/or kV according to patient size, use of iterative reconstruction technique. RADIATION DOSE SUMMARY: DLP: 3103.89 mGycm COMPARISON: None available. FINDINGS: Lung bases: Clear. Liver: Within normal limits. Subcentimeter circumscribed benign-appearing cyst in the anterior left hepatic lobe. No suspicious focal lesion. Gallbladder: Unremarkable. No biliary ductal dilatation. Spleen: Normal size and morphology. Pancreas: Unremarkable. Adrenals: Unremarkable. Kidneys/Bladder: Normal, symmetric renal nephrograms. No mass lesion, urolithiasis or hydronephrosis. Urinary bladder is underdistended, possibly with mild circumferential bladder wall thickening whichmay be related to cystitis. Delayed postcontrast imaging demonstrates normal symmetric excretion of IV contrast fromthe bilateral renal collecting systems into the urinary bladder without obstruction. Reproductive Organs: Multiple small degenerative calcified uterine fibroids. Small 2.1 cm simple appearing left ovarian cyst. Unremarkable right ovary. Bowel: Small hiatal hernia. Otherwise unremarkable stomach and small bowel. Noevidence of obstruction or active inflammatory process. Normal appendix. Mild distal colonic diverticulosis without evidence for active diverticulitis/colitis. Lymph nodes: No enlarged abdominopelvic lymph nodes. Vasculature: Normal caliber abdominal aorta and IVC. Mild atherosclerotic disease. Peritoneum / Retroperitoneum: No ascites or free air. Bones: Mild degenerative changes of the spine. Chronic anterior wedge compression deformity of the T11 vertebral body, and minimal grade 1 degenerative anterolisthesis of L4 on L5. CT/CT Abd/Pelvis W/WO Contrast IMPRESSION: 1. Urinary bladder wall thickening; correlate clinically for possible cystitis. 2. Normal appearance of the kidneys. No renal mass, urolithiasis or hydronephrosis. 3. Multiple small calcified degenerative uterine fibroids. 4. Small 2.1 cm simple left ovarian cyst; no follow-up indicated. Reading Location: [facility] CC: Dr. Presley Ortiz MD; Dr. Neal Regalado MD ~ Therapeutic Radiologist: Signed [facility] Progress note 04-23-2022 Note Date & Type Note Facility 04-23-2022 Note HNO ID: [id number] Author: Jena Moss APRN.SUPERINTENDENT TRACK Service: ? Author Type: Nurse Practitioner Type: Progress Notes Filed: 04/23/2022 7:29 PM Note Text: Subjective The history is provided by the patient. No world language teacher was used. KINGSLEY Valentino is a 71 [...] have confirmed and edited as necessary, the [facility] Review of Systems Constitutional: Positive for [...] in 12-24 hours with results, available on [employer] - INFLUENZA AANDB MOLECULAR (POC) - 2019 [...] warranting prompt ER evaluation. Jena Moss APRN.CNP [facility] Instructions 04-23-2022 Patient Instructions Note Date & Type Note Facility 04-23-2022 Instructions Jena Moss APRN.ROOPA - 04/23/2022 7:17 PM EST Strep is [...] inability to swallow. documented in this encounter [facility] History of Present illness Narrative 04-23-2022 Jena Moss APRN.ROOPA - 04/23/2022 7:04 PM EST Note Date & Type Note Facility 04-23-2022 History of Presen t illness Narrative Subjective The history is provided by the patient. No world language teacher was used. KINGSLEY Valentino is a 71 [...] have confirmed and edited as necessary, the [facility] Review of Systems Constitutional: Positive for [...] in 12-24 hours with results, available on [employer] - INFLUENZA A&B MOLECULAR (POC) - 2019 [...] detail warranting prompt ER evaluation. Jena Moss APRN.SUPERINTENDENT TRACK documented in this encounter [facility] Evaluation note Note Date & Type Note Facility Evaluation note No assessment information availa ble [facility] Work Phone: Evaluation note Note Date & Type Note Facility Evaluation note Diagnosis Throat pain- Primary Influenza-like illness Influenza with other respiratory manifestations URI with cough and congestion documented in this encounter [facility] Reason for referral (narrative) Note Date & Type Note Facility Reason for referral (narrative) No reason for referral information available [facility] Work Phone: Chief Complaint and Reason [...] Date SCREENING November 12, 2024 1:1 0pm Chief Complaint Admit Date SCREENING November 12, 2024 1:1 0pm R31.21 R35.0 R30.0 Asymptomatic microsco pic hematu December 19, 2024 1:35pm Advance Directives No Advanced Directives Records Found Advance Directive Response Recorded Date/ Time Living Will No April 30 10:59am Power of Data Governance Analyst No April 30, 2019 10:59am Advance Directive Response Recorded Date/ Time Living Will No April 30 9:59am Power of Data Governance Analyst No April 30, 2019 9:59am Health Concerns [...] or prosecute any alcohol or drug abuse patient.[facility] Reason for Visit (unrecogniz ed section and content) Reason Comments Chest Congestion Pt reported throat p ain, nasal congestion x1 day, cough. INFORMATION SOURCE (unrecogn ized section and content) DATE CREATED AUTHOR 04/24/2022 [facility] DATE CREATED AUTHOR AUTHOR'S ORGANIZ ATION 02/16/2025 [facility] Care Teams (unrecognized sec tion and content) [...] November 12, 2024 End: November 12, 2024 Team Status: Active Member Role/Relationship Status Dates Dr. Neal Regalado MD Primary care physician Active Team Status: Inactive Member Role/Relationship Status Dates Dr. Neal Regalado MD Primary care physician Active Start: September 11, 2024 End: September 11, 2024 Dr. Neal Regalado MD Attending physician Active Start: September 11, 2024 End: September 11, 2024 Dr. Neal Regalado MD Referring Provider Active Start: September 11, 2024 End: September 11, 2024 Team Status: Inactive Member Role/Relationship Status Dates Dr. Neal Regalado MD Primary care physician Active Start: October 22, 2024 End: October 22, 2024 Dr. Neal Regalado MD Attending physician Active Start: October 22, 2024 End: October 22, 2024 Dr. Neal Regalado MD Referring Provider Active Start: October 22, 2024 End: October 22, 2024 Team Status: Inactive Member Role/Relationship Status Dates Dr. Neal Regalado MD Primary care physician Active Start: November 12, 2024 End: November 12, 2024 Dr. Neal Regalado MD Attending physician Active Start: November 12, 2024 End: November 12, 2024 Dr. Neal Regalado MD Referring Provider Active Start: November 12, 2024 End: November 12, 2024 Team Status: Inactive Member Role/Relationship Status Dates Dr. Neal Regalado MD Primary care physician Active Start: December 19, 2024 End: December 19, 2024 Dr. Presley Ortiz MD Attending physician Active Start: December 19, 2024 End: December 19, 2024 Dr. Presley Ortiz MD Referring Provider Active Start: December 19, 2024 End: December 19, 2024 FOR RECORDS PERTAINING TO PATIENTS WHO [...] BE BASED ON THE PRIMARY CLINICAL RECORDS. [employer] provides no warranty or guarantee of the accuracy or completeness of information in this document.
== END | disposition home or self-care (01) ==
LOC: MTRAD 12:58
PROVIDERS: PCP Family Medicine; Referring Provider Family Medicine; Visit Provider Family Medicine
DX: R07.89 Other chest pain (principal)
CPT/HCPCS: 71100

== ENCOUNTER → 2025-02-26 | Outpatient (CLI) | payer MEDICARE, SELFPAY ==
--- NOTE | 2025-02-26 13:51 | CT_ITS ---
PROCEDURE: CTA CHEST W/WO CONTRAST 02/26/2025 REASON FOR EXAM: CHEST PAIN STAT TECHNIQUE: Procedure Code: [id number] Modality: CT Procedure: CTA CHEST W/WO CONTRAST Multiplanar Sagittal and Coronal images were obtained. 3D post processing was performed CONTRAST: Isovue-300 VOLUME: 100 mL One or more dose reduction techniques were used (e.g., Automated exposure control, adjustment of the mA and/or kV according to patient size, use of iterative reconstruction technique). RADIATION DOSE SUMMARY: CTDlvol: 6.4 mGy DLP: 279.8 mGycm COMPARISON: Prior chest radiograph dated May 12, 2022. FINDINGS: Hardware: None Lymph nodes: No significant lymphadenopathy is seen. Heart: The heart is nonenlarged. No coronary artery calcification is present. Thoracic Aorta: Mild degree of atherosclerotic plaque formation of the aortic arch. Pulmonary Vessels: The vessels are well opacified. No evidence of pulmonary embolism. Lungs and Airways: The lungs are clear. No focal abnormality is seen. Pleura: No pleural effusion. Upper Abdomen: Unremarkable Bones: Degenerative changes of the thoracic spine. Increased kyphosis. CT/CTA Chest W/WO Contrast IMPRESSION: No evidence of pulmonary embolism. No pulmonary infiltration is seen. Reading Location: [facility]
--- OUTSIDE RECORDS SUMMARY | 2025-02-26 17:35 | XMS RPT_ITS | CCD ---
Author Organization [facility] Care Team Providers Care Ticket Speculator Name Role Phone Dr. Neal Regalado Primary [...] BRINK, Dr. Presley Sanchez Referring Provider [phone] Neal Regalado Attending Unavailable Regalado, Neal Referring [...] (14 sources) Menthol Drug Allergy 0 Rash [facility] (1 source) Escitalopram Drug Allergy 3 Other: See Comments [facility] (1 source) Menthol Drug Allergy 0 [facility] Repository Medications Current Medications Medication Drug [...] Comment on above: Take 2 tablets by [facility] once daily for 5 days. propranolol [...] May 01, 2019 May 06, 2019 1:08am [id number] 200 actuat albuterol 0.09 mg/actuat metered dose [...] )on 02-04-2025 BUN/CRE 23.8 RATIO High 01-28 [facility] Comment on above: Performed By: #### L 500.2500 #### [facility] [address] [place], [address] Calcium [Mass/Vol] 10.0 mg/dL Normal 7.6-11.0 [facility] Comment on above: Performed By: #### L 500.2500 #### [facility] [address] [place], [address] Chloride [Moles/Vol] 102 mmol/L Normal 98-108 [facility] Comment on above: Performed By: #### L 500.2500 #### [facility] [address] [place], [address] CO2 [Moles/Vol] 28.8 mmol/L Normal 21.0-32.0 [facility] Comment on above: Performed By: #### L 500.2500 #### [facility] [address] [place], [address] Creatinine [Mass/Vol] 0.59 mg/dL Low 0.70-1.[address] [facility] Comment on above: Performed By: #### L 500.2500 #### [facility] [address] [place], [address] GAP 9 Normal 5-15 [facility] Comment on above: Performed By: #### L 500.2500 #### [facility] [address] [place], [address] GFR/1.73 sq M.predicted among non-blacks MDRD (S/P/Bld) [Vol rate/Area] 95 mL/min/{1.73_m2} Normal >60 [facility] Comment on above: Result Comment: mL/m in/1.73m2 CKD-EPI Creatinine Equation (2020) Performed By: #### L 500.2500 #### [facility] [address] [place], [address] Glucose [Mass/Vol] 94 mg/dL Normal 70-99 [facility] Comment on above: Performed By: #### L 500.2500 #### [facility] [address] [place], [address] Potassium [Moles/Vol] 4.5 mmol/L Normal 3.3-5.[address] [facility] Comment on above: Performed By: #### L 500.2500 #### [facility] [address] [place], [address] Sodium [Moles/Vol] 140 mmol/L Normal 133-145 [facility] Comment on above: Performed By: #### L 500.2500 #### [facility] [address] [place], [address] Urea nitrogen [Mass/Vol] 14 mg/dL Normal 4-19 [facility] Comment on above: Performed By: #### L 500.2500 #### [facility] [address] [place], [address] CT Abd/Pelvis W/WO Contrasto n 12-19-2024 CT Abd/Pelvis W/WO Contrast [facility] [address] [place] [address] CT Abd/Pelvis W/WO Contrast MR#: [id number] Acct: [id number] Name: QUNITON VALENTINO Rep #: [id number] : 1950 F 74 From: Cory Sánchez MD PCP: Dr. Neal Regalado MD Status: REG CLI Study: CT Abd/Pelvis W/WO Contrast Date of Exam: 12/10 Exam# [id number] Ordering Dr: Presley Ortiz MD PROCEDURE: CT [...] ovarian cyst; no follow-up indicated. Reading Location: [facility] CC: Dr. Presley Ortiz MD; Dr. Neal Regalado MD Garnishment Specialist: Signed Normal [facility] Breast imaging reportOrdered By: Galina Muñoz on 11-12-2024 Study report [facility] Services [address] [place], [place] [address] SCRN MAMM (CAD)W/ARASH BILAT MR#: [id number] Acct: [id number] Name: QUINTON VALENTINO Rep #: [id number] : 1950 F 74 From: Moses Muñoz DO PCP: Dr. Neal Regalado MD Status: MYLEEN VAIL Study:SCRN MAMM (CAD)W/ARASH BILAT Date of Exa m: 11/12/24 Exam# [id number] Ordering Dr: Neal Regalado MD EXAM: SCRN [...] be mailed to the patient. Reading Location: [id number] CC: Dr. Neal Regalado MD ~ Garnishment Specialist: Signed [facility] SCRN MAMM (CAD)W/ARASH BILATo n 11-12-2024 SCRN MAMM (CAD)W/ARASH BILAT [facility] Services [address] [place] [address] SCRN MAMM (CAD)W/ARASH BILAT MR#: [id number] Acct: [id number] Name: QUINTON VALENTINO Rep #: [id number] : 1950 F 74 From: Galina Martin O PCP: Dr. Neal Regalado MD Status: REG CLI Study: SCRN MAMM (CAD)W/ARASH BILAT Date of Exam: 08/03 Exam# [id number] Ordering Dr: Neal Regalado MD EXAM: SCRN [...] be mailed to the patient. Reading Location: [facility] CC: Dr. Neal Regalado MD Garnishment Specialist: Signed Normal [facility] Anion gap in Serum or Plasma Ordered By: Neal Regalado on 10-22-2024 Anion gap [Moles/Vol] 10 mmol/L 5-[address] [facility] BUN/creatinine ratioOrdered By: Neal Regalado on 10-22-2024 Urea nitrogen/Creatinine [Mass ratio] 21.2 mg/mg High - [facility] Basic Metabolic Profile (BMP )on 10-22-2024 BUN/CRE 21.2 RATIO High 01-28 [facility] Comment on above: Performed By: #### L 500.2500 #### [facility] [address] [place], [address] Calcium [Mass/Vol] 9.7 mg/dL Normal 7.6-11.0 [facility] Comment on above: Performed By: #### L 500.2500 #### [facility] [address] [place], [address] Chloride [Moles/Vol] 105 mmol/L Normal 98-108 [facility] Comment on above: Performed By: #### L 500.2500 #### [facility] [address] [place], [address] CO2 [Moles/Vol] 27.0 mmol/L Normal 21.0-32.0 [facility] Comment on above: Performed By: #### L 500.2500 #### [facility] [address] [place], [address] Creatinine [Mass/Vol] 0.69 mg/dL Low 0.70-1.[address] [facility] Comment on above: Performed By: #### L 500.2500 #### [facility] [address] [place], [address] GAP 10 Normal 5-15 [facility] Comment on above: Performed By: #### L 500.2500 #### [facility] [address] [place], [address] GFR/1.73 sq M.predicted among non-blacks MDRD (S/P/Bld) [Vol rate/Area] 91 mL/min/{1.73_m2} Normal >60 [facility] Comment on above: Result Comment: mL/m in/1.73m2 CKD-EPI Creatinine Equation (2020) Performed By: #### L 500.2500 #### [facility] [address] [place], [address] Glucose [Mass/Vol] 87 mg/dL Normal 70-99 [facility] Comment on above: Performed By: #### L 500.2500 #### [facility] [address] [place], [address] Potassium [Moles/Vol] 4.0 mmol/L Normal 3.3-5.[address] [facility] Comment on above: Performed By: #### L 500.2500 #### [facility] [address] [place], [address] Sodium [Moles/Vol] 143 mmol/L Normal 133-145 [facility] Comment on above: Performed By: #### L 500.2500 #### [facility] [address] [place], [address] Urea nitrogen [Mass/Vol] 15 mg/dL Normal 4-19 [facility] Comment on above: Performed By: #### L 500.2500 #### [facility] [address] [place], [address] Carbon dioxide, total [Moles /volume] in Central venous bloodOrdered By: Neal Regalado on 10-22-2024 CO2 [Moles/Vol] 27.0 mmol/L 21.0-32.0 [facility] Chloride assayOrdered By: Florian Regalado on 10-22-2024 Chloride [Moles/Vol] 105 mmol/L 98-108 [facility] Glomerular filtration rate ( GFR) estimation/1.73 sq m using serum, plasma, or whole bOrdered By: Neal Regalado on 10-22-2024 GFR/1.73 sq M.predicted among non-blacks MDRD (S/P/Bld) [Vol rate/Area] 91 mL/min/{1.73_m2} >60 [facility] Comment on above: mL/min/1.73m2 CKD-EP I Creatinine Equation (2020) Potassium measurement (mass/ volume)Ordered By: Neal Regalado on 10-22-2024 Potassium (Unsp spec) [Mass/Vol] 4.0 mmol/L 3.3-5.1 [facility] Serum creatinine measurement (mass/volume)Ordered By: Neal Regalado on 10-22-2024 Creatinine [Mass/Vol] 0.69 mg/dL Low 0.70-1.[address] [facility] Serum glucose measurement (m ass/volume)Ordered By: Neal Regalado on 10-22-2024 Glucose [Mass/Vol] 87 mg/dL 70-99 [facility] Serum or plasma calcium jeremías urement (mass/volume)Ordered By: Neal Regalado on 10-22-2024 Calcium [Mass/Vol] 9.7 mg/dL 7.6-11.0 [facility] Serum or plasma urea nitroge n measurement (mass/volume)Ordered By: Neal Regalado on 10-22-2024 Urea nitrogen [Mass/Vol] 15 mg/dL 4-19 [facility] Sodium levelOrdered By: Neal Regalado on 10-22-2024 Sodium [Moles/Vol] 143 mmol/L 133-145 [facility] Urine Cultureon 09-14-2024 [facility] Escherichia coli [place] Count >100,000 Morganella morganii sp morgani Morganella [...] TMP SMX Islt TRAN <=20 S Normal [facility] Comment on above: Performed By: #### M 100.2200 #### [facility] [address] [place], [place], [id number] Urine cultureOrdered By: Kathy Regalado on 09-11-2024 Bacteria identified Cx Nom (U) Escherichia coli Abnormal [facility] Bacteria identified Cx Nom (U) Morganella morganii sp morgani Abnormal [facility] Urine Cultureon 06-02-2024 [facility] Mixed Gram Pos Gram Neg Org [place] Count 11,000-25,000 [facility]IX[facility] Mixed contaminants. Submit a new specimen if indicated. Normal [facility] Comment on above: Performed By: #### M 100.2200 #### [facility] [address] [place], [place], [address] Urine cultureOrdered By: Kathy Regalado on 05-31-2024 Bacteria identified Cx Nom (U) Mixed Gram Pos & Gram Neg Org Abnormal [facility] Basic Metabolic Profile (BMP )on 04-26-2024 BUN/CRE 20.6 RATIO High - [facility] Comment on above: Performed By: #### L 500.2500, L500.4100 #### [facility] [address] [place], [address] CA,Total 9.9 mg/dL Normal 8.5-10.1 [facility] Comment on above: Performed By: #### L 500.2500, L500.4100 #### [facility] [address] [place], [address] Chloride [Moles/Vol] 106 mmol/L Normal 98-107 [facility] Comment on above: Performed By: #### L 500.2500, L500.4100 #### [facility] [address] [place], [address] CO2 [Moles/Vol] 30.0 mmol/L Normal 21.0-32.0 [facility] Comment on above: Performed By: #### L 500.2500, L500.4100 #### [facility] [address] [place], [address] Creatinine [Mass/Vol] 0.68 mg/dL Normal 0.55-1.[address] [facility] Comment on above: Result Comment: The validity of the calculated GFR GFRAA in patients over 70 years has not been determined. Clinical correlation is essential. Performed By: #### L 500.2500, L500.4100 #### [facility] [address] [place], [address] EST GFR - AA 109 mL/min Normal >60 [facility] Comment on above: Result Comment: Afri can [place] GFR Calc Performed By: #### L 500.2500, L500.4100 #### [facility] [address] [place], [address] GAP 5 Normal 5-15 [facility] Comment on above: Performed By: #### L 500.2500, L500.4100 #### [facility] [address] [place], [address] GFR/1.73 sq M.predicted among non-blacks MDRD (S/P/Bld) [Vol rate/Area] 90 mL/min/{1.73_m2} Normal >60 [facility] Comment on above: Result Comment: Non- GFR Calc Performed By: #### L 500.2500, L500.4100 #### [facility] [address] [place], [address] Glucose [Mass/Vol] 94 mg/dL Normal 74-106 [facility] Comment on above: Performed By: #### L 500.2500, L500.4100 #### [facility] [address] [place], [address] Potassium [Moles/Vol] 4.2 mmol/L Normal 3.5-5.[address] [facility] Comment on above: Performed By: #### L 500.2500, L500.4100 #### [facility] [address] [place], [address] Sodium [Moles/Vol] 141 mmol/L Normal 136-145 [facility] Comment on above: Performed By: #### L 500.2500, L500.4100 #### [facility] [address] [place], [address] Urea nitrogen [Mass/Vol] 14 mg/dL Normal 7-18 [facility] Comment on above: Performed By: #### L 500.2500, L500.4100 #### [facility] [address] [place], [address] Lipid Profileon 04-26-2024 Cholesterol [Mass/Vol] 187 mg/dL Normal 200 [facility] Comment on above: Result Comment: <200 mg/dL Desirable 200-240 mg/dL Borderline >240 mg/dL High Risk Performed By: #### L 500.2500, L500.4100 #### [facility] [address] [place], [address] Cholesterol in HDL [Mass/Vol] 58 mg/dL Normal [facility] Comment on above: Result Comment: The drugs N-Acetylcysteine and Metamizole may falsely depress this assay. Reference Range HDL <40 mg/dL Low HDL Cholesterol HDL >or= 60 mg/dL High HDL Cholesterol Performed By: #### L 500.2500, L500.4100 #### [facility] [address] [place], [address] Cholesterol in LDL [Mass/Vol] 104 mg/dL Normal 0-130 [facility] Comment on above: Performed By: #### L 500.2500, L500.4100 #### [facility] [address] [place], [address] Cholesterol in VLDL [Mass/Vol] 25 mg/dL Normal 5-40 [facility] Comment on above: Performed By: #### L 500.2500, L500.4100 #### [facility] [address] [place], [address] Triglyceride [Mass/Vol] 125 mg/dL Normal [facility] Comment on above: Result Comment: The drugs N-Acetylcysteine and Metamizole may falsely depress this assay. Serum Triglycerides Reference Interval Normal <150 mg/dL Borderline high 150 - 199 mg/dL High 200 - 499 mg/dL Very High > or = 500 mg/dL Performed By: #### L 500.2500, L500.4100 #### [facility] [address] [place], [address] Basophil percentageOrdered B y: Neal Regalado on 10-04-2022 Chloride [Moles/Vol] 107 mmol/L 98-107 [facility] Cholesterol [Mass/Vol] 143 mg/dL <200 [facility] Comment on above: <200 mg/dL Desirable 200-240 mg/dL Borderline >240 mg/dL High Risk Glucose [Mass/Vol] 93 mg/dL 74-106 [facility] Potassium [Moles/Vol] 4.1 mmol/L 3.5-5.[address] [facility] Sodium [Moles/Vol] 141 mmol/L 136-145 [facility] Triglyceride [Mass/Vol] 94 mg/dL <199 [facility] Comment on above: The drugs N-Acetylcy steine and Metamizole may falsely depress this assay.Serum Triglycerides Reference Interval Normal <150 mg/dL Borderline high 150 - 199 mg/dL High 200 - 499 mg/dL Very High > or = 500 mg/dL Laboratory - Chemistry and C hemistry - challengeOrdered By: Neal Regalado on 10-04-2022 CO2 [Moles/Vol] 31.0 mmol/L 21.0-32.0 [facility] Urea nitrogen/Creatinine [Mass ratio] 14.7 mg/mg 10-20 [facility] No Panel InformationOrdered By: Neal Regalado on 10-04-2022 Estimated GFR (MDRD) Amer 98 mL/min >60 [facility] Comment on above: GFR Calc Estimated GFR (MDRD) Non-Af Amer 81 mL/min >60 [facility] Comment on above: Non- GFR Calc Serum or plasma calcium jeremías urement (mass/volume)Ordered By: Neal Rgealado on 10-04-2022 Calcium [Mass/Vol] 9.4 mg/dL 8.5-10.1 [facility] Serum or plasma cholesterol in HDL measurement (mass/volume)Ordered By: Neal Regalado on 10-04-2022 Cholesterol in HDL [Mass/Vol] 49 mg/dL >40 [facility] Comment on above: The drugs N-Acetylcy steine and Metamizole may falsely depress this assay. Reference Range HDL <40 mg/dL Low HDL Cholesterol HDL >or= 60 mg/dL High HDL Cholesterol Serum or plasma cholesterol in VLDL measurement (mass/volume)Ordered By: Neal Regalado on 10-04-2022 Cholesterol in VLDL [Mass/Vol] 19 mg/dL 5-40 [facility] Serum or plasma creatinine m easurement (mass/volume)Ordered By: Neal Regalado on 10-04-2022 Creatinine [Mass/Vol] 0.75 mg/dL 0.55-1.[address] [facility] Comment on above: The validity of the calculated GFR & GFRAA in patients over 70 years has not been determined. Clinical correlation is essential. Serum or plasma low density lipoprotein (LDL) cholesterol measurement (mass/volume)Ordered By: Neal Regalado on 10-04-2022 Cholesterol in LDL [Mass/Vol] 75 mg/dL 0-130 [facility] Serum or plasma urea nitroge n measurement (mass/volume)Ordered By: Neal Regalado on 10-04-2022 Urea nitrogen [Mass/Vol] 11 mg/dL 7-18 [facility] Thin prep Papanicolaou smear with manual screeningOrdered By: Neal Regalado on 10-04-2022 Thin prep Papanicolaou smear with manual screening 3 5-15 [facility] CNPNon 04-24-2022 CNPN Telephone ([facility]) QUINTON VALENTINO ([id number]) 1950 F Date Time Provider Department 04/24/22 APOLONIA ORTEGA [facility] During your visit today, we recorded the following information about you: Brigida Barber MA 04/24/2022 1:22 PM Signed ----- Message from Apolonia Ortega APRN.LEASE ADMINISTRATION SUPERVISOR sent at 04/24/2022 11:32 AM EST ----- [...] Status:Closed by BRIGIDA BARBER on 04/24/22 Normal [facility] CNOVon 04-23-2022 CNOV Office Visit ([facility]WSTR ) QUINTON VALENTINO ([id number]) 1950 F Date Time Provider Department 04/23/22 7:00 PM JENA MOSS [facility] During your visit today, we recorded the following information about you: Temperature Pulse Respiration Weight 99.2 degrees 112/minute 18/minute 82.1 kg Jena Moss APRN.LEASE ADMINISTRATION SUPERVISOR 04/23/2022 7:29 PM Signed Subjective The history is provided by the patient. No keg filler was used. HPI Quinton Valentino is a [...] have confirmed and edited as necessary, the [facility] Review of Systems Constitutional: Positive for [...] bleeding. MEN (more content not included)... Normal [facility] INFLUENZA A&B MOLECULAR (POC )on 04-23-2022 Flu A (POCT) Negative Negative [facility] Flu B (POCT) Negative Negative [facility] Procedural Control Valid [facility] SARS-CoV-2 RNA Resp Ql ИРИНА+p robeon 04-23-2022 SARS-CoV-2 (COVID-19) RNA ИРИНА+probe Ql (Resp) COVID 19 RESULT: SARS-CoV-2 (Agent of COVID-19) Not Detected by RT-PCR or equivalent method. This test was developed and its performance characteristics determined by [facility]'s [facility] [place]. This test has been authorized by FDA under an Emergency Use Authorization (EUA). This test has been validated in accordance with the FDA's Guidance Document Policy for Diagnostics Testing in Laboratories Certified to Perform High Complexity Testing under CLIA prior to Emergency use Authorization for Coronavirus Disease 2019 during the Public Health Emergency issued on June 09, 2019. Test performed by [facility], [facility] [place], [address] [place] [address]. Normal [facility] Comment on above: Performed By: #### 9 4500-6 #### [facility] CLIA [id number] [address] [place] [address] [place] [address] [place] ST[place] A MOLECULAR (POC)on Procedural Control Valid [facility] Strep A (POCT) Negative Negative [facility] Basophil percentageon 2021 Chloride [Moles/Vol] 106 mmol/L 98-107 [facility] Work Phone: Cholesterol [Mass/Vol] 179 mg/dL <200 [facility] Work Phone: Comment on above: <200 mg/dL Desirable 200-240 mg/dL Borderline >240 mg/dL High Risk Glucose [Mass/Vol] 87 mg/dL 74-106 [facility] Work Phone: Potassium [Moles/Vol] 4.1 mmol/L 3.5-5.1 [facility] Work Phone: Sodium [Moles/Vol] 140 mmol/L 136-145 [facility] Work Phone: Triglyceride [Mass/Vol] 144 mg/dL <199 [facility] Work Phone: Comment on above: The drugs N-Acetylcy steine and Metamizole may falsely depress this assay.Serum Triglycerides Reference Interval Normal <150 mg/dL Borderline high 150 - 199 mg/dL High 200 - 499 mg/dL Very High > or = 500 mg/dL Laboratory - Chemistry and C hemistry - challengeon 10-16-2021 CO2 [Moles/Vol] 30.0 mmol/L 21.0-32.0 [facility] Work Phone: Urea nitrogen/Creatinine [Mass ratio] 31.1 mg/mg 10-20 [facility] Work Phone: No Panel Informationon 10-16 Estimated GFR (MDRD) Amer 117 mL/min >60 [facility] Work Phone: Comment on above: GFR Calc Estimated GFR (MDRD) Non-Af Amer 97 mL/min >60 [facility] Work Phone: Comment on above: Non- GFR Calc Serum or plasma calcium jeremías urement (mass/volume)on 10-16-2021 Calcium [Mass/Vol] 9.5 mg/dL 8.5-10.1 [facility] Work Phone: Serum or plasma cholesterol in HDL measurement (mass/volume)on 10-16-2021 Cholesterol in HDL [Mass/Vol] 54 mg/dL >40 [facility] Work Phone: Comment on above: The drugs N-Acetylcy steine and Metamizole may falsely depress this assay. Reference Range HDL <40 mg/dL Low HDL Cholesterol HDL >or= 60 mg/dL High HDL Cholesterol Serum or plasma cholesterol in VLDL measurement (mass/volume)on 10-16-2021 Cholesterol in VLDL [Mass/Vol] 29 mg/dL 5-40 [facility] Work Phone: Serum or plasma creatinine m easurement (mass/volume)on 10-16-2021 Creatinine [Mass/Vol] 0.64 mg/dL 0.55-1.[address] [facility] Work Phone: Comment on above: The validity of the calculated GFR & GFRAA in patients over 70 years has not been determined. Clinical correlation is essential. Serum or plasma low density lipoprotein (LDL) cholesterol measurement (mass/volume)on 10-16-2021 Cholesterol in LDL [Mass/Vol] 96 mg/dL 0-130 [facility] Work Phone: Serum or plasma urea nitroge n measurement (mass/volume)on 10-16-2021 Urea nitrogen [Mass/Vol] 20 mg/dL 7-18 [facility] Work Phone: Thin prep Papanicolaou smear with manual screeningon 10-16-2021 Thin prep Papanicolaou smear with manual screening 4 5-15 [facility] Work Phone: Vital Signs Date Time Vital Sign Value Performing Clinician Facility 11-02-2022 09:12-0400 Body height 167.64 cm [facility] 04-23-2022 18:54-0500 Body temperature 99.19 [degF] Jena Isa BRIM POUNCER.LEASE ADMINISTRATION SUPERVISOR Work Phone: [facility] 04-23-2022 18:54-0500 Body weight 82.1 kg Jena Isa BRIM POUNCER.LEASE ADMINISTRATION SUPERVISOR Work Phone: [facility] 04-23-2022 18:54-0500 Heart rate 112 /min Jena Isa BRIM POUNCER.LEASE ADMINISTRATION SUPERVISOR Work Phone: [facility] 04-23-2022 18:54-0500 Respiratory rate 18 /min Jena Isa BRIM POUNCER.LEASE ADMINISTRATION SUPERVISOR Work Phone: [facility] 04-23-2022 18:54-0500 SaO2% (BldA) [Mass fraction] 96 % Jena Isa BRIM POUNCER.LEASE ADMINISTRATION SUPERVISOR Work Phone: [facility] Encounters Encounter Date Encounter Type Care Provider Facility Start: 02-04-2025 End: 02-04-2025 ambulatory Neal Regalado Facility:[facility] Start: 12-19-2024 End: 12-19-[address] Neal Regalado MD Work Phone: -Cat Scan [facility] Start: 12-19-2024 End: 12-19-[address] Presley Ortiz MD -Cat Scan [facility] Work Phone: Start: 12-19-2024 End: 12-19-2024 ambulatory Presley Ortiz Facility:[facility] Start: 11-12-2024 End: 11-12-[address] Neal Regalado MD Work Phone: -Outpatient Breast Imaging Start: 11-12-2024 End: 11-12-[address] Neal Regalado MD -Outpatient Breast Imaging Work Phone: Start: 11-12-2024 End: 11-12-2024 ambulatory Neal Regalado Facility:[facility] Start: 10-22-2024 End: 10-22-[address] Neal Regalado MD Work Phone: -Laboratory [facility] Start: 10-22-2024 End: 10-22-[address] Neal Regalado MD -Laboratory [facility] Start: 10-22-2024 End: 10-22-2024 ambulatory Neal Regalado Facility:[facility] Start: 09-11-2024 End: 09-11-[address] Neal Regalado MD Work Phone: [facility] Work Phone: Start: 09-11-2024 End: 09-11-[address] Neal Regalado MD -Laboratory Specimen Work Phone: Start: 09-11-2024 End: 09-11-2024 ambulatory Neal Regalado Facility:[facility] Start: 08-03-2024 ambulatory Neal Regalado Facility:[facility] Start: 05-31-2024 End: 05-31-[address] Neal Regalado MD -Laboratory [facility] Start: 05-31-2024 End: 05-31-2024 ambulatory Neal Regalado Facility:[facility] Start: 04-26-2024 End: 04-26-2024 ambulatory Neal Regalado Facility:[facility] Start: 08-04-2023 End: 08-04-2023 ambulatory [facility] Work Phone: Start: 08-04-2023 End: 08-04-2023 Patient encounter procedure [facility] [place] Work Phone: Start: 11-02-2022 End: 11-02-2022 ambulatory [facility] Work Phone: Start: 11-02-2022 End: 11-02-2022 Patient encounter procedure [facility] Work Phone: Start: 10-04-2022 End: 10-04-2022 ambulatory [facility] Work Phone: Start: 10-04-2022 End: 10-04-2022 [facility] Start: 05-20-[address] [facility] Start: 05-12-2022 End: 05-12-2022 ambulatory [facility] Work Phone: Start: 05-12-2022 End: 05-12-2022 [facility] Start: 04-23-2022 End: 04-23-2022 ambulatory Facility:[facility] Start: 04-23-2022 End: 04-23-2022 Patient encounter procedure Jena Moss [facility] Work Phone: [facility] Comment on above: Throat pain (Primary Dx); Influenza-like illness; URI with cough and congestion Start: 04-22-[address] [facility] Start: 04-19-2022 End: 04-19-2022 ambulatory [facility] Work Phone: Start: 04-19-2022 End: 04-19-2022 Patient encounter procedure [facility] Start: 10-29-2021 End: 10-29-[address] Neal Regalado Work Phone: [facility] Start: 10-22-2021 Non-patient / Non-visit Dr. Florian Regalado Work Phone: [facility] Start: 10-22-2021 End: 10-22-[address] Neal Regalado Work Phone: [facility] Start: 10-16-2021 End: 10-16-2021 [facility] Procedures Date Procedure Procedure Detail Performing Clinician [...] 04-23-2022 STREP A MOLECULAR (POC) Dahlia Older BRIM POUNCER.LEASE ADMINISTRATION SUPERVISOR Work Phone: Start: 04-19-2022 Plain x-ray of humerus Start: 04-19-2022 Plain X-ray of shoulder Start: 10-29-2021 Screening mammography Mario Regalado Work Phone: Start: 10-16-2021 Plain x-ray of hand Plan of Treatment Date Care Activity Detail Author Start: 09-11-2024 Urine culture Urine Culture [facility] Start: 09-11-2024 [facility] Start: 08-04-2023 [facility] Start: 04-23-2022 End: 06-23-2022 INFLUENZA A&B MOLECULAR (POC) INFLUENZA A&B MOLECULAR (POC) Microbiology Routine Influenza-like illness Expected: 04/23/2022, Expires: 06/23/2022 [facility] Work Phone: Comment on above: Expected: 04/23/2022 , Expires: 06/23/2022 Start: 04-23-2022 End: 05-07-2022 SARS-CoV-2 (COVID-19) RNA [Presence] in Respiratory specimen by [employer] with probe detection 2019 CORONAVIRUS Microbiology Routine Influenza-like illness URI with cough and congestion Expected: 04/23/2022, Expires: 05/07/2022 [facility] Work Phone: Comment on above: Expected: 04/23/2022 , Expires: 05/07/2022 Start: 04-11-2022 ADVANCE DIRECTIVE DISCUSSION ADVANCE DIRECTIVE DISCUSSION [facility] Start: 01-01-2023 DEPRESSION ASSESSMENT DEPRESSION ASS ESSMENT [facility] Start: 08-02-2015 BONE DENSITY BONE DENSITY [facility] Start: 08-02-2015 PNEUMOCOCCAL: 65+ (1 - PCV) PNEUMOCOCCAL: 65+ (1 - PCV) [facility] Start: 2000 SHINGRIX VACCINE (1 of 2) SHINGRIX VACCINE (1 of 2) [facility] Start: 08-02-1995 COLOGUARD (FIT-DNA) COLOGUARD (FIT-D NA) [facility] Start: 08-02-1995 Colonoscopy COLONOSCOPY [facility] Start: 08-02-1995 COLORECTAL CANCER SCREENING COLORECTAL CANCER SCREENING [facility] Start: 08-02-[address] COLONOGRAPHY [facility] Start: 08-02-1995 DIABETES SCREEN DIABETES SCREEN [facility] Start: 08-02-1995 FECAL OCCULT BLOOD FECAL OCCULT BLOO D [facility] Start: 08-02-1995 LIPID SCREEN LIPID SCREEN [facility] Start: 08-02-1995 SIGMOIDOSCOPY SIGMOIDOSCOPY [facility] Start: 1990 Mammography MAMMOGRAM [facility] Start: 1969 Urine microalbumin profile DTAP,TDAP,TD (1 - Tdap) [facility] Start: 1968 HEPATITIS C SCREENING HEPATITIS C SC REENING [facility] Alternaria alternata IgE Ab [Units/volume] in Serum [facility] Monegasque Cockroach I gE Ab [Units/volume] in Serum [facility] Monegasque house dust mite IgE Ab [Units/volume] in Serum [facility] Aspergillus fumigatu s RAST [facility] Bahia grass IgE Ab [Units/volume] in Serum [facility] Bermuda grass IgE Ab [Units/volume] in Serum [facility] Box elder RAST [facility] Cat dander IgE Ab [Units/volume] in Serum [facility] Cladosporium herbaru m IgE Ab [Units/volume] in Serum [facility] Common Ragweed IgE A b [Units/volume] in Serum [facility] Dog epithelium IgE A b [Units/volume] in Serum [facility] house dust mite IgE Ab [Units/volume] in Serum [facility] Hazelnut Pollen IgE Ab [Units/volume] in Serum [facility] Rolly grass IgE Ab [Units/volume] in Serum [facility] [place] blue grass IgE Ab [Units/volume] in Serum [facility] Mountain Juniper IgE Ab [Units/volume] in Serum [facility] Mucor racemosus IgE Ab [Units/volume] in Serum [facility] Mugwort IgE Ab [Units/volume] in Serum [facility] Bagdad RAST [facility] Nettle IgE Ab [Units/volume] in Serum [facility] Penicillium notatum IgE Ab [Units/volume] in Serum [facility] Plantain (Tamazight) RAST [facility] Rough Pigweed IgE Ab [Units/volume] in Serum [facility] Sheep [place] IgE Ab [Units/volume] in Serum [facility] Stemphylium botryosu m IgE Ab [Units/volume] in Serum [facility] Sweet gum [facility] Tree pollen [facility] White Elm IgE Ab [Units/volume] in Serum [facility] White [place] IgE Ab [Units/volume] in Serum [facility] [place] IgE Ab [Units/volume] in Serum [facility] Immunizations Immunization Date Immunization Notes Care Provider Trista melissa 01-26-2017 Influenza virus vaccine [facility] Payers Date Payer Category Payer Self-pay [id number] 2022 Medicare [employer] [place] [id number] 2022-Present [phone] [address] [place] [address] [facility] [place] [place] [id number] 2022 Medicare [id number] 2016 Unknown [id number] 2015 Medicare [id number] 2010 Unknown [id number] Unknown [id number] Unknown [id number] Unknown [id number] Unknown [id number] Unknown [id number] Unknown [id number] Unknown [id number] Social History Date Type Detail Facility Start: 12-24-2019 End: 12-24-2019 Tobacco smoking status HIIS Unknown if ever smoked [facility] Start: 04-11-2017 None [facility] Start: 04-11-2017 [facility] Start: 04-30-2019 Non-smoker [facility] Start: 1950 Sex Assigned At Female [facility] Start: 12-24-2019 End: 04-23-2022 Tobacco smoking status HIIS Never smoked tobacco [facility] Start: 04-23-2022 Tobacco use and exposure Smokeless tobacco non-user [facility] Start: 04-23-2022 Alcohol intake Lifetime non-d jc (finding) [facility] Start: 1950 Sex Assigned At Not on file [facility] Sex Female [facility] Radiology Diagnostic study note 12-20-2024 Note Date & Type Note Facility 12-20-2024 Radiology Diagnostic study note [facility] Imaging Services [address] [place] [address] CT Abd/Pelvis W/WO Contrast MR#: [id number] Acct: [id number] Name: QUINTON VALENTINO Rep #: [id number] : 1950 F 74 From: [facility] villa Sánchez MD PCP: Dr. Neal Regalado MD Status: MYLENE VAIL Study:CT Abd/Pelvis W/WO Contrast Date of Exa m: 12/19/24 Exam# [id number] Ordering Dr: Pedro Ortiz MD PROCEDURE: CT [...] ovarian cyst; no follow-up indicated. Reading Location: [facility] CC: Dr. Presley Ortiz MD; Dr. Neal Regalado MD ~ Garnishment Specialist: Signed [facility] Progress note 04-23-2022 Note Date & Type Note Facility 04-23-2022 Note HNO ID: [id number] Author: Jena Moss APRN.LEASE ADMINISTRATION SUPERVISOR Service: ? Author Type: Nurse Practitioner Type: Progress Notes Filed: 04/23/2022 7:29 PM Note Text: Subjective The history is provided by the patient. No keg filler was used. KINGSLEY Valentino is a 71 [...] have confirmed and edited as necessary, the [facility] Review of Systems Constitutional: Positive for [...] in 12-24 hours with results, available on [employer] - INFLUENZA AANDB MOLECULAR (POC) - 2019 [...] warranting prompt ER evaluation. Jena Moss APRN.CNP [facility] Instructions 04-23-2022 Patient Instructions Note Date & [...] inability to swallow. documented in this encounter [facility] History of Present illness Narrative 04-23-2022 Jena Moss APRN.ROOPA - 04/23/2022 7:04 PM EST Note Date & Type Note Facility 04-23-2022 History of Presen t illness Narrative Subjective The history is provided by the patient. No keg filler was used. KINGSLEY Valentino is a 71 [...] have confirmed and edited as necessary, the [facility] Review of Systems Constitutional: Positive for [...] in 12-24 hours with results, available on [employer] - INFLUENZA A&B MOLECULAR (POC) - 2019 [...] detail warranting prompt ER evaluation. Jena Moss APRN.LEASE ADMINISTRATION SUPERVISOR documented in this encounter [facility] Evaluation note Note Date & Type Note Facility Evaluation note No assessment information availa ble [facility] Work Phone: Evaluation note Note Date & Type Note Facility Evaluation note Diagnosis Throat pain- Primary Influenza-like illness Influenza with other respiratory manifestations URI with cough and congestion documented in this encounter [facility] Reason for referral (narrative) Note Date & Type Note Facility Reason for referral (narrative) No reason for referral information available [facility] Work Phone: Chief Complaint and Reason [...] Will No April 30 10:59am Power of Looper Operator No April 30, 2019 10:59am Advance Directive Response Recorded Date/ Time Living Will No April 30 9:59am Power of Looper Operator No April 30, 2019 9:59am Health Concerns [...] or prosecute any alcohol or drug abuse patient.[facility] Reason for Visit (unrecogniz ed section and content) Reason Comments Chest Congestion Pt reported throat p ain, nasal congestion x1 day, cough. INFORMATION SOURCE (unrecogn ized section and content) DATE CREATED AUTHOR 04/24/2022 [facility] DATE CREATED AUTHOR AUTHOR'S ORGANIZ ATION 02/16/2025 [facility] Care Teams (unrecognized sec tion and content) [...] BE BASED ON THE PRIMARY CLINICAL RECORDS. [employer] provides no warranty or guarantee of the accuracy or completeness of information in this document.
== END | disposition home or self-care (01) ==
LOC: CT 13:09
PROVIDERS: PCP Family Medicine; Referring Provider Family Medicine; Visit Provider Family Medicine
DX: R07.9 Chest pain, unspecified (principal)
CPT/HCPCS: 71275; Q9967

== ENCOUNTER → 2025-03-19 | Outpatient (CLI) | payer MEDICARE, SELFPAY ==
--- NOTE | 2025-03-19 09:16 | BD_ITS ---
PROCEDURE: DEXA BONE DENSITY STUDY 03/19/2025 REASON FOR EXAM: F, age 74 y/o . Postmenopausal. TECHNIQUE: Procedure Code: BDDBD Modality: DX Procedure: DEXA BONE DENSITY STUDY COMPARISON: November 02, 2022 FINDINGS: BMD and T-SCORES Lumbar spine: 0.793 g/cm2, T-score -2.3 Levels: L1 through L4 Change from prior: Loss of 4.9%. Left femoral neck: 0.519 g/cm2, T-score -3.0 Femoral neck comparison data not recommended for monitoring change. Left total hip: 0.634 g/cm2, T-score -2.5 Change from prior: Loss of 5.6%. Right femoral neck: 0.583 g/cm2, T-score -2.4 Femoral neck comparison data not recommended for monitoring change. Right total hip: 0.637 g/cm2, T-score -2.5 Change from prior: Loss of 1.8%. The World Health Organization has defined the following categories based on bone density: Normal bone density: T-score equal to or greater than -1.0 Osteopenia: T-score between -1.0 and -2.5 Osteoporosis: T-score equal to or less than -2.5 FRAX (or Comparable) Fracture Risk Assessment: 10 Year Probability of Fracture: Major Osteoporotic Fracture: 47% Hip Fracture: 32% (Note: FRAX is not to be reported in setting of normal range bone density, osteoporosis on DEXA, known history of osteoporosis, prior osteoporotic hip or vertebral fracture, or for any patient undergoing pharmacological treatment for bone loss.) The National Osteoporosis Foundation (NOF) recommends pharmacological treatment for patients with a FRAX 10-year risk of 3% or higher for a hip fracture, or 20% or higher for a major osteoporotic fracture, to prevent osteoporosis and reduce fracture risk. The patient does meet the pharmacological treatment recommendations for prevention of osteoporosis. BD/Dexa Bone Density Study IMPRESSION: OSTEOPOROSIS. Recommend follow-up as clinically warranted. Reading Location: [place] [address]
--- OUTSIDE RECORDS SUMMARY | 2025-03-19 10:56 | XMS RPT_ITS | CCD ---
Author Organization [facility] Care Team Providers Care Sandwich Peddler Name Role Phone Dr. Neal Regalado Primary [...] Angel BRINK, Dr. Presley Sanchez Referring Provider Neal Regalado Attending Unavailable Regalado, [...] (14 sources) Menthol Drug Allergy 0 Rash [facility] (1 source) Escitalopram Drug Allergy 3 Other: See Comments [facility] (1 source) Menthol Drug Allergy 0 [facility] Repository Medications Current Medications Medication Drug [...] Comment on above: Take [address] [facility] once daily for 5 days. propranolol hydrochloride [...] May 01, 2019 May 06, 2019 1:08am [id number] 200 actuat albuterol 0.09 mg/actuat metered dose [...] )on 02-04-2025 BUN/CRE 23.8 RATIO High 01-28 [facility] Comment on above: Performed By: #### L 500.2500 #### [facility] [address] [place], [address] Calcium [Mass/Vol] 10.0 mg/dL Normal 7.6-11.0 [facility] Comment on above: Performed By: #### L 500.2500 #### [facility] [address] [place], [address] Chloride [Moles/Vol] 102 mmol/L Normal 98-108 [facility] Comment on above: Performed By: #### L 500.2500 #### [facility] [address] [place], [address] CO2 [Moles/Vol] 28.8 mmol/L Normal 21.0-32.0 [facility] Comment on above: Performed By: #### L 500.2500 #### [facility] [address] [place], [address] Creatinine [Mass/Vol] 0.59 mg/dL Low 0.70-1.20 [facility] Comment on above: Performed By: #### L 500.2500 #### [facility] [address] [place], [address] GAP 9 Normal 5-15 [facility] Comment on above: Performed By: #### L 500.2500 #### [facility] [address] [place], [address] GFR/1.73 sq M.predicted among non-blacks MDRD (S/P/Bld) [Vol rate/Area] 95 mL/min/{1.73_m2} Normal >60 [facility] Comment on above: Result Comment: mL/m in/1.73m2 CKD-EPI Creatinine Equation (2020) Performed By: #### L 500.2500 #### [facility] [address] [place], [address] Glucose [Mass/Vol] 94 mg/dL Normal 70-99 [facility] Comment on above: Performed By: #### L 500.2500 #### [facility] [address] [place], [address] Potassium [Moles/Vol] 4.5 mmol/L Normal 3.3-5.1 [facility] Comment on above: Performed By: #### L 500.2500 #### [facility] [address] [place], [address] Sodium [Moles/Vol] 140 mmol/L Normal 133-145 [facility] Comment on above: Performed By: #### L 500.2500 #### [facility] [address] [place], [address] Urea nitrogen [Mass/Vol] 14 mg/dL Normal 4-19 [facility] Comment on above: Performed By: #### L 500.2500 #### [facility] [address] [place], [address] CT Abd/Pelvis W/WO Contrasto n 12-19-2024 CT Abd/Pelvis W/WO Contrast [facility] [address] [place] [address] CT Abd/Pelvis W/WO Contrast MR#: [id number] Acct: [id number] Name: QUINTON VALENTINO Rep #: [id number] : 1950 F 74 From: Cory Sánchez MD PCP: Dr. Neal Regalado MD Status: REG CLI Study: CT Abd/Pelvis W/WO Contrast Date of Exam: 12/10 Exam# [id number] Ordering Dr: Presley Ortiz MD PROCEDURE: CT [...] ovarian cyst; no follow-up indicated. Reading Location: [facility] CC: Dr. Presley Ortiz MD; Dr. Neal Regalado MD Laundry Housekeeping Aide: Signed Normal [facility] Breast imaging reportOrdered By: Galina Muñoz on 11-12-2024 Study report [facility] [address] [place], [place] [address] SCRN MAMM (CAD)W/ARASH BILAT MR#: [id number] Acct: [id number] Name: QUINTON VALENTINO Rep #: [id number] : 1950 F 74 From: Moses Muñoz DO PCP: Dr. Neal Regalado MD Status: MYLENE VAIL Study:SCRN MAMM (CAD)W/ARASH BILAT Date of Exa m: 11/12/24 Exam# [id number] Ordering Dr: Neal Regalado MD EXAM: SCRN [...] be mailed to the patient. Reading Location: [id number] CC: Dr. Neal Regalado MD ~ Laundry Housekeeping Aide: Signed [facility] SCRN MAMM (CAD)W/ARASH BILATo n 11-12-2024 SCRN MAMM (CAD)W/ARASH BILAT [facility] Imaging Services [address] [place] [address] SCRN MAMM (CAD)W/ARASH BILAT MR#: [id number] Acct: [id number] Name: QUINTON VALENTINO Rep #: [id number] : 1950 F 74 From: Galina Martin O PCP: Dr. Neal Regalado MD Status: REG CLI Study: SCRN MAMM (CAD)W/ARASH BILAT Date of Exam: 08/03 Exam# [id number] Ordering Dr: Neal Regalado MD EXAM: SCRN [...] be mailed to the patient. Reading Location: [facility] CC: Dr. Neal Regalado MD Laundry Housekeeping Aide: Signed Normal [facility] Anion gap in Serum or Plasma Ordered By: Neal Regalado on 10-22-2024 Anion gap [Moles/Vol] 10 mmol/L 5-15 [facility] BUN/creatinine ratioOrdered By: Neal Regalado on 10-22-2024 Urea nitrogen/Creatinine [Mass ratio] 21.2 mg/mg High - [facility] Basic Metabolic Profile (BMP )on 10-22-2024 BUN/CRE 21.2 RATIO High 01-28 [facility] Comment on above: Performed By: #### L 500.2500 #### [facility] [address] [place], [address] Calcium [Mass/Vol] 9.7 mg/dL Normal 7.6-11.0 [facility] Comment on above: Performed By: #### L 500.2500 #### [facility] [address] [place], [address] Chloride [Moles/Vol] 105 mmol/L Normal 98-108 [facility] Comment on above: Performed By: #### L 500.2500 #### [facility] [address] [place], [address] CO2 [Moles/Vol] 27.0 mmol/L Normal 21.0-32.0 [facility] Comment on above: Performed By: #### L 500.2500 #### [facility] [address] [place], [address] Creatinine [Mass/Vol] 0.69 mg/dL Low 0.70-1.20 [facility] Comment on above: Performed By: #### L 500.2500 #### [facility] [address] [place], [address] GAP 10 Normal 5-15 [facility] Comment on above: Performed By: #### L 500.2500 #### [facility] [address] [place], [address] GFR/1.73 sq M.predicted among non-blacks MDRD (S/P/Bld) [Vol rate/Area] 91 mL/min/{1.73_m2} Normal >60 [facility] Comment on above: Result Comment: mL/m in/1.73m2 CKD-EPI Creatinine Equation (2020) Performed By: #### L 500.2500 #### [facility] [address] [place], [address] Glucose [Mass/Vol] 87 mg/dL Normal 70-99 [facility] Comment on above: Performed By: #### L 500.2500 #### [facility] [address] [place], [address] Potassium [Moles/Vol] 4.0 mmol/L Normal 3.3-5.1 [facility] Comment on above: Performed By: #### L 500.2500 #### [facility] [address] [place], [address] Sodium [Moles/Vol] 143 mmol/L Normal 133-145 [facility] Comment on above: Performed By: #### L 500.2500 #### [facility] [address] [place], [address] Urea nitrogen [Mass/Vol] 15 mg/dL Normal 4-19 [facility] Comment on above: Performed By: #### L 500.2500 #### [facility] [address] [place], [address] Carbon dioxide, total [Moles /volume] in Central venous bloodOrdered By: Neal Regalado on 10-22-2024 CO2 [Moles/Vol] 27.0 mmol/L 21.0-32.0 [facility] Chloride assayOrdered By: Florian Regalado on 10-22-2024 Chloride [Moles/Vol] 105 mmol/L 98-108 [facility] Glomerular filtration rate ( GFR) estimation/1.73 sq m using serum, plasma, or whole bOrdered By: Neal Regalado on 10-22-2024 GFR/1.73 sq M.predicted among non-blacks MDRD (S/P/Bld) [Vol rate/Area] 91 mL/min/{1.73_m2} >60 [facility] Comment on above: mL/min/1.73m2 CKD-EP I Creatinine Equation (2020) Potassium measurement (mass/ volume)Ordered By: Neal Regalado on 10-22-2024 Potassium (Unsp spec) [Mass/Vol] 4.0 mmol/L 3.3-5.1 [facility] Serum creatinine measurement (mass/volume)Ordered By: Neal Regalado on 10-22-2024 Creatinine [Mass/Vol] 0.69 mg/dL Low 0.70-1.20 [facility] Serum glucose measurement (m ass/volume)Ordered By: Neal Regalado on 10-22-2024 Glucose [Mass/Vol] 87 mg/dL 70-99 [facility] Serum or plasma calcium jeremías urement (mass/volume)Ordered By: Neal Regalado on 10-22-2024 Calcium [Mass/Vol] 9.7 mg/dL 7.6-11.0 [facility] Serum or plasma urea nitroge n measurement (mass/volume)Ordered By: Neal Regalado on 10-22-2024 Urea nitrogen [Mass/Vol] 15 mg/dL 4-19 [facility] Sodium levelOrdered By: Neal Regalado on 10-22-2024 Sodium [Moles/Vol] 143 mmol/L 133-145 [facility] Urine Cultureon 09-14-2024 [facility] Escherichia coli Evant Count >100,000 Morganella morganii sp morgani Morganella [...] TMP SMX Islt TRAN <=20 S Normal [facility] Comment on above: Performed By: #### M 100.2200 #### [facility] [address] [place], [place], [id number] Urine cultureOrdered By: Kathy Regalado on 09-11-2024 Bacteria identified Cx Nom (U) Escherichia coli Abnormal [facility] Bacteria identified Cx Nom (U) Morganella morganii sp morgani Abnormal [facility] Urine Cultureon 06-02-2024 [facility] Mixed Gram Pos Gram Neg Org Evant Count 11,000-25,000 MIXC Mixed contaminants. Submit a new specimen if indicated. Normal [facility] Comment on above: Performed By: #### M 100.2200 #### [facility] [address] [place], [place], [address] Urine cultureOrdered By: Kathy Regalado on 05-31-2024 Bacteria identified Cx Nom (U) Mixed Gram Pos & Gram Neg Org Abnormal [facility] Basic Metabolic Profile (BMP )on 04-26-2024 BUN/CRE 20.6 RATIO High - [facility] Comment on above: Performed By: #### L 500.2500, L500.4100 #### [facility] [address] [place], [address] CA,Total 9.9 mg/dL Normal 8.5-10.1 [facility] Comment on above: Performed By: #### L 500.2500, L500.4100 #### [facility] [address] [place], [address] Chloride [Moles/Vol] 106 mmol/L Normal 98-107 [facility] Comment on above: Performed By: #### L 500.2500, L500.4100 #### [facility] [address] [place], [address] CO2 [Moles/Vol] 30.0 mmol/L Normal 21.0-32.0 [facility] Comment on above: Performed By: #### L 500.2500, L500.4100 #### [facility] [address] [place], [address] Creatinine [Mass/Vol] 0.68 mg/dL Normal 0.55-1.02 [facility] Comment on above: Result Comment: The validity of the calculated GFR GFRAA in patients over 70 years has not been determined. Clinical correlation is essential. Performed By: #### L 500.2500, L500.4100 #### [facility] [address] [place], [address] EST GFR - AA 109 mL/min Normal >60 [facility] Comment on above: Result Comment: Afri can Belgian GFR Calc Performed By: #### L 500.2500, L500.4100 #### [facility] [address] [place], [address] GAP 5 Normal 5-15 [facility] Comment on above: Performed By: #### L 500.2500, L500.4100 #### [facility] [address] [place], [address] GFR/1.73 sq M.predicted among non-blacks MDRD (S/P/Bld) [Vol rate/Area] 90 mL/min/{1.73_m2} Normal >60 [facility] Comment on above: Result Comment: Non- GFR Calc Performed By: #### L 500.2500, L500.4100 #### [facility] [address] [place], [address] Glucose [Mass/Vol] 94 mg/dL Normal 74-106 [facility] Comment on above: Performed By: #### L 500.2500, L500.4100 #### [facility] [address] [place], [address] Potassium [Moles/Vol] 4.2 mmol/L Normal 3.5-5.1 [facility] Comment on above: Performed By: #### L 500.2500, L500.4100 #### [facility] [address] [place], [address] Sodium [Moles/Vol] 141 mmol/L Normal 136-145 [facility] Comment on above: Performed By: #### L 500.2500, L500.4100 #### [facility] [address] [place], [address] Urea nitrogen [Mass/Vol] 14 mg/dL Normal 7-18 [facility] Comment on above: Performed By: #### L 500.2500, L500.4100 #### [facility] [address] [place], [address] Lipid Profileon 04-26-2024 Cholesterol [Mass/Vol] 187 mg/dL Normal 200 [facility] Comment on above: Result Comment: <200 mg/dL Desirable 200-240 mg/dL Borderline >240 mg/dL High Risk Performed By: #### L 500.2500, L500.4100 #### [facility] [address] [place], [address] Cholesterol in HDL [Mass/Vol] 58 mg/dL Normal [facility] Comment on above: Result Comment: The drugs N-Acetylcysteine and Metamizole may falsely depress this assay. Reference Range HDL <40 mg/dL Low HDL Cholesterol HDL >or= 60 mg/dL High HDL Cholesterol Performed By: #### L 500.2500, L500.4100 #### [facility] [address] [place], [address] Cholesterol in LDL [Mass/Vol] 104 mg/dL Normal 0-130 [facility] Comment on above: Performed By: #### L 500.2500, L500.4100 #### [facility] [address] [place], [address] Cholesterol in VLDL [Mass/Vol] 25 mg/dL Normal 5-40 [facility] Comment on above: Performed By: #### L 500.2500, L500.4100 #### [facility] [address] [place], [address] Triglyceride [Mass/Vol] 125 mg/dL Normal [facility] Comment on above: Result Comment: The drugs N-Acetylcysteine and Metamizole may falsely depress this assay. Serum Triglycerides Reference Interval Normal <150 mg/dL Borderline high 150 - 199 mg/dL High 200 - 499 mg/dL Very High > or = 500 mg/dL Performed By: #### L 500.2500, L500.4100 #### [facility] [address] [place], [address] Basophil percentageOrdered B y: Neal Regalado on 10-04-2022 Chloride [Moles/Vol] 107 mmol/L 98-107 [facility] Cholesterol [Mass/Vol] 143 mg/dL <200 [facility] Comment on above: <200 mg/dL Desirable 200-240 mg/dL Borderline >240 mg/dL High Risk Glucose [Mass/Vol] 93 mg/dL 74-106 [facility] Potassium [Moles/Vol] 4.1 mmol/L 3.5-5.1 [facility] Sodium [Moles/Vol] 141 mmol/L 136-145 [facility] Triglyceride [Mass/Vol] 94 mg/dL <199 [facility] Comment on above: The drugs N-Acetylcy steine and Metamizole may falsely depress this assay.Serum Triglycerides Reference Interval Normal <150 mg/dL Borderline high 150 - 199 mg/dL High 200 - 499 mg/dL Very High > or = 500 mg/dL Laboratory - Chemistry and C hemistry - challengeOrdered By: Neal Regalado on 10-04-2022 CO2 [Moles/Vol] 31.0 mmol/L 21.0-32.0 [facility] Urea nitrogen/Creatinine [Mass ratio] 14.7 mg/mg 10-20 [facility] No Panel InformationOrdered By: Neal Regalado on 10-04-2022 Estimated GFR (MDRD) Amer 98 mL/min >60 [facility] Comment on above: GFR Calc Estimated GFR (MDRD) Non-Af Amer 81 mL/min >60 [facility] Comment on above: Non- GFR Calc Serum or plasma calcium jeremías urement (mass/volume)Ordered By: Neal Regalado on 10-04-2022 Calcium [Mass/Vol] 9.4 mg/dL 8.5-10.1 [facility] Serum or plasma cholesterol in HDL measurement (mass/volume)Ordered By: Neal Regalado on 10-04-2022 Cholesterol in HDL [Mass/Vol] 49 mg/dL >40 [facility] Comment on above: The drugs N-Acetylcy steine and Metamizole may falsely depress this assay. Reference Range HDL <40 mg/dL Low HDL Cholesterol HDL >or= 60 mg/dL High HDL Cholesterol Serum or plasma cholesterol in VLDL measurement (mass/volume)Ordered By: Neal Regalado on 10-04-2022 Cholesterol in VLDL [Mass/Vol] 19 mg/dL 5-40 [facility] Serum or plasma creatinine m easurement [...] Cholesterol in LDL [Mass/Vol] 75 mg/dL 0-130 [facility] Serum or plasma urea nitroge n measurement (mass/volume)Ordered By: Neal Regalado on 10-04-2022 Urea nitrogen [Mass/Vol] 11 mg/dL 7-18 [facility] Thin prep Papanicolaou smear with manual screeningOrdered By: Neal Regalado on 10-04-2022 Thin prep Papanicolaou smear with manual screening 3 5-15 [facility] CNPNon 04-24-2022 CNPN Telephone ([facility]) QUINTON VALENTINO ([id number]) 1950 F Date Time Provider Department 04/24/22 APOLONIA ORETGA [facility] During your visit today, we recorded the following information about you: Brigida Barber MA 04/24/2022 1:22 PM Signed ----- Message from Apolonia Ortega APRN.HOME ADVISOR sent at 04/24/2022 11:32 AM EST ----- [...] Status:Closed by BRIGIDA BARBER on 04/24/22 Normal [facility] CNOVon 04-23-2022 CNOV Office Visit ([facility] ) QUINTON VALENTINO ([id number]) 1950 F Date Time Provider Department 04/23/22 7:00 PM JENA MOSS [facility] During your visit today, we recorded the following information about you: Temperature Pulse Respiration Weight 99.2 degrees 112/minute 18/minute 82.1 kg Jena Moss APRN.HOME ADVISOR 04/23/2022 7:29 PM Signed Subjective The history is provided by the patient. No harvester operator was used. HPI Quinton Valentino is [...] have confirmed and edited as necessary, the [facility] Review of Systems Constitutional: Positive for chills, [...] bleeding. MEN (more content not included)... Normal [facility] INFLUENZA A&B MOLECULAR (POC )on 04-23-2022 Flu A (POCT) Negative Negative [facility] Flu B (POCT) Negative Negative [facility] Procedural Control Valid [facility] SARS-CoV-2 RNA Resp Ql ИРИНА+p robeon 04-23-2022 SARS-CoV-2 (COVID-19) RNA ИРИНА+probe Ql (Resp) COVID 19 RESULT: SARS-CoV-2 (Agent of COVID-19) Not Detected by RT-PCR or equivalent method. This test was developed and its performance characteristics determined by [facility]'s [facility] [place]. This test has been authorized by FDA under an Emergency Use Authorization (EUA). This test has been validated in accordance with the FDA's Guidance Document Policy for Diagnostics Testing in Laboratories Certified to Perform High Complexity Testing under CLIA prior to Emergency use Authorization for Coronavirus Disease 2019 during the Public Health Emergency issued on June 09, 2019. Test performed by [facility], [facility] [place], [address] [place] [address]. Normal [facility] Comment on above: Performed By: #### 9 4500-6 #### [facility] CLIA [id number] [address] [place] [address] [place] [address] [place] STREP A MOLECULAR (POC)on Procedural Control Valid [facility] Strep A (POCT) Negative Negative [facility] Basophil percentageon 2021 Chloride [Moles/Vol] 106 mmol/L 98-107 [facility] Work Phone: Cholesterol [Mass/Vol] 179 mg/dL <200 [facility] Work Phone: Comment on above: <200 mg/dL Desirable 200-240 mg/dL Borderline >240 mg/dL High Risk Glucose [Mass/Vol] 87 mg/dL 74-106 [facility] Work Phone: Potassium [Moles/Vol] 4.1 mmol/L 3.5-5.1 [facility] Work Phone: Sodium [Moles/Vol] 140 mmol/L 136-145 [facility] Work Phone: Triglyceride [Mass/Vol] 144 mg/dL <199 [facility] Work Phone: Comment on above: The drugs N-Acetylcy steine and Metamizole may falsely depress this assay.Serum Triglycerides Reference Interval Normal <150 mg/dL Borderline high 150 - 199 mg/dL High 200 - 499 mg/dL Very High > or = 500 mg/dL Laboratory - Chemistry and C hemistry - challengeon 10-16-2021 CO2 [Moles/Vol] 30.0 mmol/L 21.0-32.0 [facility] Work Phone: Urea nitrogen/Creatinine [Mass ratio] 31.1 mg/mg 10-20 [facility] Work Phone: No Panel Informationon 10-16 Estimated GFR (MDRD) Amer 117 mL/min >60 [facility] Work Phone: Comment on above: GFR Calc Estimated GFR (MDRD) Non-Af Amer 97 mL/min >60 [facility] Work Phone: Comment on above: Non- GFR Calc Serum or plasma calcium jeremías urement (mass/volume)on 10-16-2021 Calcium [Mass/Vol] 9.5 mg/dL 8.5-10.1 [facility] Work Phone: Serum or plasma cholesterol in HDL measurement (mass/volume)on 10-16-2021 Cholesterol in HDL [Mass/Vol] 54 mg/dL >40 [facility] Work Phone: Comment on above: The drugs N-Acetylcy steine and Metamizole may falsely depress this assay. Reference Range HDL <40 mg/dL Low HDL Cholesterol HDL >or= 60 mg/dL High HDL Cholesterol Serum or plasma cholesterol in VLDL measurement (mass/volume)on 10-16-2021 Cholesterol in VLDL [Mass/Vol] 29 mg/dL 5-40 [facility] Work Phone: Serum or plasma creatinine m easurement (mass/volume)on 10-16-2021 Creatinine [Mass/Vol] 0.64 mg/dL 0.55-1.02 [facility] Work Phone: Comment on above: The validity of the calculated GFR & GFRAA in patients over 70 years has not been determined. Clinical correlation is essential. Serum or plasma low density lipoprotein (LDL) cholesterol measurement (mass/volume)on 10-16-2021 Cholesterol in LDL [Mass/Vol] 96 mg/dL 0-130 [facility] Work Phone: Serum or plasma urea nitroge n measurement (mass/volume)on 10-16-2021 Urea nitrogen [Mass/Vol] 20 mg/dL 7-18 [facility] Work Phone: Thin prep Papanicolaou smear with manual screeningon 10-16-2021 Thin prep Papanicolaou smear with manual screening 4 5-15 [facility] Work Phone: Vital Signs Date Time Vital Sign Value Performing Clinician Facility 11-02-2022 09:12-0400 Body height 167.64 cm [facility] 04-23-2022 18:54-0500 Body temperature 99.19 [degF] Jena Isa BUSINESS MANAGER.HOME ADVISOR Work Phone: [facility] 04-23-2022 18:54-0500 Body weight 82.1 kg Jena Isa BUSINESS MANAGER.HOME ADVISOR Work Phone: [facility] 04-23-2022 18:54-0500 Heart rate 112 /min Jena Isa BUSINESS MANAGER.HOME ADVISOR Work Phone: [facility] 04-23-2022 18:54-0500 Respiratory rate 18 /min Jena Isa BUSINESS MANAGER.HOME ADVISOR Work Phone: [facility] 04-23-2022 18:54-0500 SaO2% (BldA) [Mass fraction] 96 % Jena Isa BUSINESS MANAGER.HOME ADVISOR Work Phone: [facility] Encounters Encounter Date Encounter Type Care Provider Facility Start: 02-04-2025 End: 02-04-2025 ambulatory Neal Regalado Facility:[facility] Start: 12-19-2024 End: 12-19-[address] Neal Regalado MD Work Phone: -Cat Scan [facility] Start: 12-19-2024 End: 12-19-[address] Presley Ortiz MD -Cat Scan [facility] Work Phone: Start: 12-19-2024 End: 12-19-2024 ambulatory Presley Ortiz Facility:[facility] Start: 11-12-2024 End: 11-12-[address] Neal Regalado MD Work Phone: -Outpatient Breast Imaging Start: 11-12-2024 End: 11-12-[address] Neal Regalado MD -Outpatient Breast Imaging Work Phone: Start: 11-12-2024 End: 11-12-2024 ambulatory Neal Regalado Facility:[facility] Start: 10-22-2024 End: 10-22-[address] Neal Regalado MD Work Phone: -Laboratory [facility] Start: 10-22-2024 End: 10-22-[address] Neal Regalado MD -Laboratory [facility] Start: 10-22-2024 End: 10-22-2024 ambulatory Neal Regalado Facility:[facility] Start: 09-11-2024 End: 09-11-[address] Neal Regalado MD Work Phone: [facility] Work Phone: Start: 09-11-2024 End: 09-11-[address] Neal Regalado MD -Laboratory Spec[facility] Work Phone: Start: 09-11-2024 End: 09-11-2024 ambulatory Neal Regalado Facility:[facility] Start: 08-03-2024 ambulatory Neal Regalado Facility:[facility] Start: 05-31-2024 End: 05-31-[address] Neal Regalado MD -Laboratory [facility] Start: 05-31-2024 End: 05-31-2024 ambulatory Neal Regalado Facility:[facility] Start: 04-26-2024 End: 04-26-2024 ambulatory Neal Regalado Facility:[facility] Start: 08-04-2023 End: 08-04-2023 ambulatory [facility] Work Phone: Start: 08-04-2023 End: 08-04-2023 Patient encounter procedure [facility] Work Phone: Start: 11-02-2022 End: 11-02-2022 ambulatory [facility] Work Phone: Start: 11-02-2022 End: 11-02-2022 Patient encounter procedure [facility]-Outpatient Bone Densitometry Work Phone: Start: 10-04-2022 End: 10-04-2022 ambulatory [facility] Work Phone: Start: 10-04-2022 End: 10-04-2022 [facility] Start: 05-20-2022 [facility] Start: 05-12-2022 End: 05-12-2022 ambulatory [facility] Work Phone: Start: 05-12-2022 End: 05-12-2022 [facility] Start: 04-23-2022 End: 04-23-2022 ambulatory Facility:[facility] Start: 04-23-2022 End: 04-23-2022 Patient encounter procedure Jean Moss [facility] Work Phone: [facility] Comment on above: Throat pain (Primary Dx); Influenza-like illness; URI with cough and congestion Start: 04-22-2022 [facility] Start: 04-19-2022 End: 04-19-2022 ambulatory [facility] Work Phone: Start: 04-19-2022 End: 04-19-2022 Patient encounter procedure [facility] Start: 10-29-2021 End: 10-29-[address] Neal Regalado Work Phone: [facility] Start: 10-22-2021 Non-patient / Non-visit Dr. Florian Regalado Work Phone: [facility] Start: 10-22-2021 End: 10-22-[address] Neal Regalado Work Phone: [facility] Start: 10-16-2021 End: 10-16-2021 [facility] Procedures Date Procedure Procedure Detail Performing Clinician [...] 04-23-2022 STREP A MOLECULAR (POC) Dahlia Older BUSINESS MANAGER.HOME ADVISOR Work Phone: Start: 04-19-2022 Plain x-ray of humerus Start: 04-19-2022 Plain X-ray of shoulder Start: 10-29-2021 Screening mammography Mario Regalado Work Phone: Start: 10-16-2021 Plain x-ray of hand Plan of Treatment Date Care Activity Detail Author Start: 09-11-2024 Urine culture Urine Culture [facility] Start: 09-11-2024 [facility] Start: 08-04-2023 [facility] Start: 04-23-2022 End: 06-23-2022 INFLUENZA A&B MOLECULAR (POC) INFLUENZA A&B MOLECULAR (POC) Microbiology Routine Influenza-like illness Expected: 04/23/2022, Expires: 06/23/2022 [facility] Work Phone: Comment on above: Expected: 04/23/2022 , Expires: 06/23/2022 Start: 04-23-2022 End: 05-07-2022 SARS-CoV-2 (COVID-19) RNA [Presence] in Respiratory specimen by ИРИНА with probe detection 2019 CORONAVIRUS Microbiology Routine Influenza-like illness URI with cough and congestion Expected: 04/23/2022, Expires: 05/07/2022 [facility] Work Phone: Comment on above: Expected: 04/23/2022 , Expires: 05/07/2022 Start: 04-11-2022 ADVANCE DIRECTIVE DISCUSSION ADVANCE DIRECTIVE DISCUSSION [facility] Start: 01-01-2023 DEPRESSION ASSESSMENT DEPRESSION ASS ESSMENT [facility] Start: 08-02-2015 BONE DENSITY BONE DENSITY [facility] Start: 08-02-2015 PNEUMOCOCCAL: 65+ (1 - PCV) PNEUMOCOCCAL: 65+ (1 - PCV) [facility] Start: 2000 SHINGRIX VACCINE (1 of 2) SHINGRIX VACCINE (1 of 2) [facility] Start: 08-02-1995 COLOGUARD (FIT-DNA) COLOGUARD (FIT-D NA) [facility] Start: 08-02-1995 Colonoscopy COLONOSCOPY [facility] Start: 08-02-1995 COLORECTAL CANCER SCREENING COLORECTAL CANCER SCREENING [facility] Start: 08-02-[address] COLONOGRAPHY [facility] Start: 08-02-1995 DIABETES SCREEN DIABETES SCREEN [facility] Start: 08-02-1995 FECAL OCCULT BLOOD FECAL OCCULT BLOO D [facility] Start: 08-02-1995 LIPID SCREEN LIPID SCREEN [facility] Start: 08-02-1995 SIGMOIDOSCOPY SIGMOIDOSCOPY [facility] Start: 1990 Mammography MAMMOGRAM [facility] Start: 1969 Urine microalbumin profile DTAP,TDAP,TD (1 - Tdap) [facility] Start: 1968 HEPATITIS C SCREENING HEPATITIS C SC REENING [facility] Alternaria alternata IgE Ab [Units/volume] in Serum [facility] Belgian Cockroach I gE Ab [Units/volume] in Serum [facility] Belgian house dust mite IgE Ab [Units/volume] in Serum [facility] Aspergillus fumigatu s RAST [facility] Bahia grass IgE Ab [Units/volume] in [facility] Bermuda grass IgE Ab [Units/volume] in [facility] Box elder RAST [facility] Cat dander IgE Ab [Units/volume] in Serum [facility] Cladosporium herbaru m IgE Ab [Units/volume] in Serum [facility] Common Ragweed IgE A b [Units/volume] in [facility] Dog epithelium IgE A b [Units/volume] in [facility] house dust mite IgE Ab [Units/volume] in [facility] Hazelnut Pollen IgE Ab [Units/volume] in [facility] Rolly grass IgE Ab [Units/volume] in Serum [facility] [place] blue grass IgE Ab [Units/volume] in Serum [facility] Mountain Juniper IgE Ab [Units/volume] in [facility] Mucor racemosus IgE Ab [Units/volume] in Serum [facility] Mugwort IgE Ab [Units/volume] in Serum [facility] Calumet RAST [facility] Nettle IgE Ab [Units/volume] in Serum [facility] Penicillium notatum IgE Ab [Units/volume] in [facility] Plantain (Thai) RAST [facility] Rough Pigweed IgE Ab [Units/volume] in Serum [facility] Sheep Divide IgE Ab [Units/volume] in Serum [facility] Stemphylium botryosu m IgE Ab [Units/volume] in [facility] Sweet gum [facility] Tree pollen [facility] [place] White Elm IgE Ab [Units/volume] in Serum [facility] White Owings IgE Ab [Units/volume] in Serum [facility] [place] IgE Ab [Units/volume] in [facility] Immunizations Immunization Date Immunization Notes Care Provider Trista melissa 01-26-2017 Influenza virus vaccine [facility] Payers Date Payer Category Payer Self-pay [id number] 2022 [place] [employer] [place] [id number] 2022-Present [phone] [address] [place] [address] [facility] [id number] 2022 Medicare [id number] 2016 Unknown [id number] 2015 Medicare [id number] 2010 Unknown [id number] Unknown [id number] Unknown [id number] Unknown [id number] Unknown [id number] Unknown [id number] Unknown [id number] Unknown [id number] Unknown [id number] Social History Date Type Detail Facility Start: 12-24-2019 End: 12-24-2019 Tobacco smoking status ORIS Unknown if ever smoked [facility] Start: 04-11-2017 None [facility] Start: 04-11-2017 Friends [facility] Start: 04-30-2019 Non-smoker [facility] Start: 1950 Sex Assigned At Female W [facility] Start: 12-24-2019 End: 04-23-2022 Tobacco smoking status ORIS Never smoked tobacco [facility] Start: 04-23-2022 Tobacco use and exposure Smokeless tobacco non-user [facility] Start: 04-23-2022 Alcohol intake Lifetime non-d jc (finding) [facility] Start: 1950 Sex Assigned At Not on file [facility] Sex Female [facility] Radiology Diagnostic study note 12-20-2024 Note Date & Type Note Facility 12-20-2024 Radiology Diagnostic study note [facility] Imaging Services [address] [place] [address] CT Abd/Pelvis W/WO Contrast MR#: [id number] Acct: [id number] Name: QUINTON VALENTINO Rep #: [id number] : 1950 F 74 From: [facility] villa Sánchez MD PCP: Dr. Neal Regalado MD Status: MYLENE VAIL Study:CT Abd/Pelvis W/WO Contrast Date of Exa m: 12/19/24 Exam# [id number] Ordering Dr: Pedro Ortiz MD PROCEDURE: CT [...] ovarian cyst; no follow-up indicated. Reading Location: [facility] CC: Dr. Presley Ortiz MD; Dr. Neal Regalado MD ~ Laundry Housekeeping Aide: Signed [facility] Progress note 04-23-2022 Note Date & Type Note Facility 04-23-2022 Note HNO ID: [id number] Author: Jena Moss APRN.HOME ADVISOR Service: ? Author Type: Nurse Practitioner Type: Progress Notes Filed: 04/23/2022 7:29 PM Note Text: Subjective The history is provided by the patient. No harvester operator was used. KINGSLEY Valentino is a [...] have confirmed and edited as necessary, the [facility] Review of Systems Constitutional: Positive for chills, [...] in 12-24 hours with results, available on [employer] - INFLUENZA AANDB MOLECULAR (POC) - 2019 [...] warranting prompt ER evaluation. Jena Moss APRN.CNP [facility] Instructions 04-23-2022 Patient Instructions Note Date & [...] inability to swallow. documented in this encounter [facility] History of Present illness Narrative 04-23-2022 Jena Moss APRN.ROOPA - 04/23/2022 7:04 PM EST Note Date & Type Note Facility 04-23-2022 History of Presen t illness Narrative Subjective The history is provided by the patient. No harvester operator was used. KINGSLEY Valentino is a [...] have confirmed and edited as necessary, the [facility] Review of Systems Constitutional: Positive for chills, [...] in 12-24 hours with results, available on [employer] - INFLUENZA A&B MOLECULAR (POC) - 2019 [...] detail warranting prompt ER evaluation. Jena Moss APRN.HOME ADVISOR documented in this encounter [facility] Evaluation note Note Date & Type Note Facility Evaluation note No assessment information availa ble [facility] Work Phone: Evaluation note Note Date & Type Note Facility Evaluation note Diagnosis Throat pain- Primary Influenza-like illness Influenza with other respiratory manifestations URI with cough and congestion documented in this encounter [facility] Reason for referral (narrative) Note Date & Type Note Facility Reason for referral (narrative) No reason for referral information available [facility] Work Phone: Chief Complaint and Reason [...] Will No April 30 10:59am [employer] Install[employer] Crew Member No April 30, 2019 10:59am Advance Directive Response Recorded Date/ Time Living Will No April 30 9:59am [employer] Install[employer] Crew Member No April 30, 2019 9:59am Health Concerns [...] or prosecute any alcohol or drug abuse patient.[facility] Reason for Visit (unrecogniz ed section and content) Reason Comments Chest Congestion Pt reported throat p ain, nasal congestion x1 day, cough. INFORMATION SOURCE (unrecogn ized section and content) DATE CREATED AUTHOR 04/24/2022 [facility] DATE CREATED AUTHOR AUTHOR'S ORGANIZ ATION 02/16/2025 [facility] Care Teams (unrecognized sec tion and [...] BE BASED ON THE PRIMARY CLINICAL RECORDS. [employer] provides no warranty or guarantee of the accuracy or completeness of information in this document.
== END | disposition home or self-care (01) ==
LOC: OPBD 09:12
PROVIDERS: PCP Family Medicine; Referring Provider Family Medicine; Visit Provider Family Medicine
DX: Z78.0 Asymptomatic menopausal state (principal)
CPT/HCPCS: 77080